=== PATIENT | female | born 1935 | race Caucasian/White ===

== ENCOUNTER → 2017-01-21 | Outpatient (REF) | payer MEDICARE | LOC: M LAB REF 16:07 | PROVIDERS: ATTEND Nurse Practitioner Adult Health | DX: R20.9 Unspecified disturbances of skin sensation (principal) ==

== ENCOUNTER → 2017-10-17 | Outpatient (REF) | payer MEDICARE ==
[2017-10-19 08:06] LABS: LDL DIRECT 138 mg/dL (0-99)
== END ==
LOC: M LAB REF 16:27
DX: E78.1 Pure hyperglyceridemia (principal)
CPT/HCPCS: 83721

== ENCOUNTER → 2018-02-24 | Outpatient (REF) | payer MEDICARE ==
[2018-02-24 12:48] LABS: BASO % 0.5 % (0.0-1.0); EOS # 0.2 10^3/uL (0.0-0.50); EOS % 3.7 % (0.0-3.0); HEMATOCRIT 33.2 % (36.0-47.0); HEMOGLOBIN 10.9 g/dl (12.0-15.5); IMMATURE GRANULOCYTE % 0.5 % (0-3.0); LYMPH # 1.6 10^3/uL (1.5-4.5); LYMPH % 27.3 % (24.0-44.0); MEAN CORPUSCULAR HEMOGLOBIN 29.4 pg (27.0-33.0); MEAN CORPUSCULAR HGB CONC 32.8 g/dl (32.0-36.5); MEAN CORPUSCULAR VOLUME 89.5 fl (80.0-96.0); MONO # 0.5 10^3/uL (0.0-0.8); MONO % 7.8 % (0.0-5.0); NEUTROPHILS # 3.5 10^3/uL (1.8-7.7); NEUTROPHILS % 60.2 % (36.0-66.0); PLATELET COUNT, AUTOMATED 198 10^3/uL (150-450); RED BLOOD COUNT 3.71 10^6/uL (4.00-5.40); RED CELL DISTRIBUTION WIDTH 13.9 % (11.5-14.5); WHITE BLOOD COUNT 5.8 10^3/uL (4.0-10.0)
[2018-02-24 13:06] LABS: CARCINOEMBRYONIC ANTIGEN 1.1 NG/ML (<2.5)
[2018-02-24 13:45] LABS: CA15-3 ANTIGEN 8.6 U/ML (<32.4)
[2018-02-24 13:46] LABS: ALBUMIN 3.8 GM/DL (3.2-5.2); ALBUMIN/GLOBULIN RATIO 1.15 (1.00-1.93); ALKALINE PHOSPHATASE 71 U/L (45-117); ALT/SGPT 16 U/L (12-78); ANION GAP 7 MEQ/L (8-16); AST/SGOT 17 U/L (7-37); BILIRUBIN,TOTAL 0.5 MG/DL (0.2-1.0); BLOOD UREA NITROGEN 14 MG/DL (7-18); CALCIUM LEVEL 8.6 MG/DL (8.8-10.2); CARBON DIOXIDE LEVEL 26 MEQ/L (21-32); CHLORIDE LEVEL 103 MEQ/L (98-107); CREATININE FOR GFR 1.29 MG/DL (0.55-1.30); GLOMERULAR FILTRATION RATE 42.2 (>32); GLUCOSE, FASTING 97 MG/DL (70-100); POTASSIUM SERUM 4.5 MEQ/L (3.5-5.1); SODIUM LEVEL 136 MEQ/L (136-145); TOTAL PROTEIN 7.1 GM/DL (6.4-8.2)
== END ==
LOC: M LABDRAW1 12:32
DX: C50.919 Malignant neoplasm of unspecified site of unspecified female breast (principal); G89.3 Neoplasm related pain (acute) (chronic)
CPT/HCPCS: 82378

== ENCOUNTER → 2018-12-30 | Outpatient (REF) | payer MEDICARE | LOC: M LAB REF 12:15 | PROVIDERS: ATTEND Nurse Practitioner Adult Health | DX: E87.1 Hypo-osmolality and hyponatremia (principal) ==

== ENCOUNTER → 2019-01-05 | Outpatient (REF) | payer MEDICARE ==
[2019-01-05 12:31] LABS: HEMATOCRIT 34.9 % (36.0-47.0); HEMOGLOBIN 11.6 g/dl (12.0-15.5); MEAN CORPUSCULAR HEMOGLOBIN 30.3 pg (27.0-33.0); MEAN CORPUSCULAR HGB CONC 33.2 g/dl (32.0-36.5); MEAN CORPUSCULAR VOLUME 91.1 fl (80.0-96.0); PLATELET COUNT, AUTOMATED 259 10^3/uL (150-450); RED BLOOD COUNT 3.83 10^6/uL (4.00-5.40); WHITE BLOOD COUNT 8.3 10^3/uL (4.0-10.0)
[2019-01-05 12:50] LABS: CALCIUM LEVEL 8.8 MG/DL (8.8-10.2); CREATININE FOR GFR 1.28 MG/DL (0.55-1.30); GLOMERULAR FILTRATION RATE 42.5 (>32); POTASSIUM SERUM 4.4 MEQ/L (3.5-5.1); THYROID STIMULATING HORMONE 2.11 uIU/ML (0.358-3.740)
== END ==
LOC: M LABDRAW1 11:40
PROVIDERS: ATTEND Internal Medicine Cardiovascular Disease
DX: I48.0 Paroxysmal atrial fibrillation (principal); I10 Essential (primary) hypertension

== ENCOUNTER → 2019-07-09 | Outpatient (REF) | payer OTHER, MEDICARE ==
[2019-07-09 18:04] LABS: FOLATE 23.7 NG/ML
== END ==
LOC: M LAB REF 16:51
PROVIDERS: ATTEND Internal Medicine
DX: R26.89 Other abnormalities of gait and mobility (principal)

== ENCOUNTER → 2019-08-19 | Outpatient (REF) | payer MEDICARE | LOC: M LAB REF 12:14 | PROVIDERS: ATTEND Nurse Practitioner Adult Health | DX: I12.9 Hypertensive chronic kidney disease with stage 1 through stage 4 chronic kidney disease, or unspecified chronic kidney disease (principal); R30.0 Dysuria ==

== ENCOUNTER → 2019-10-14 | Outpatient (REF) | payer MEDICARE ==
[2019-10-14 17:52] LABS: FOLATE 21.1 NG/ML; VITAMIN B12 LEVEL > 2000 PG/ML
== END ==
LOC: M LAB REF 16:34
PROVIDERS: ATTEND Registered Nurse
DX: R41.81 Age-related cognitive decline (principal); R42 Dizziness and giddiness

== ENCOUNTER 2019-11-22 09:26 | Emergency (ER) | payer MEDICARE ==
[~2019-11-22] VITALS: Ht 162.6 cm; Wt 85.2 kg
[2019-11-22] MEDS ORDERED: MIRA0.5T (09:40)
[2019-11-22] MEDS ORDERED: LETR2.5T2 (09:40)
[2019-11-22] MEDS ORDERED: LEVO125T4 (09:40)
[2019-11-22] MEDS ORDERED: ALPR0.25 (09:40)
[2019-11-22] MEDS ORDERED: PROP40TA62 (09:40)
[2019-11-22] MEDS ORDERED: IRBE150T7 (09:40)
[2019-11-22] MEDS ORDERED: OMEP-221 (09:40)
[2019-11-22] MEDS ORDERED: XARE15TA (09:40)
[2019-11-22] MEDS ORDERED: ATOR1TAB19 (09:40)
[2019-11-22] MEDS ORDERED: BUPR300T92 (09:40)
[2019-11-22] MEDS ORDERED: CYCLOBENZAPRINE 5MG TABLET PO ONE (10:30)
[2019-11-22] MEDS ORDERED: NORCO, ANEXSIA 5/325MG TABLET (HYDROcodone/ACETAMINOPHEN) PO ONE (10:30)
--- NOTE | 2019-11-22 11:10 | REP ---
Sacrum and coccyx three views: There are no comparisons. There is questionably a nondisplaced fracture of the anterior cortex at the mid sacrum. This should be correlated with clinical point tenderness. Follow-up MRI or CT might be considered for confirmation if felt clinically indicated. The sacral ala and foramen are unremarkable. The sacroiliac articulations are unremarkable. There are pelvic surgical clips and pelvic calcifications, likely phleboliths. Impression: Probable nondisplaced sacral fracture. Electronically Signed by Johnathan Garcia MD 11/22/2019 11:01 A
--- NOTE | 2019-11-22 11:11 | REP ---
Lumbar spine five views: Comparison is 04/08/2011. The vertebral body heights are normal. There are no compression deformities. There is degenerative disc disease at every lumbar level that has progressed from the prior study. There is grade 1 anterolisthesis of L4-L5 as an interval change, likely degenerative. There is no spondylolysis or spondylolisthesis. There is facet osteoarthritis in the lower lumbar levels. The sacroiliac articulations are unremarkable. Impression: No vertebral body compression deformity. Degenerative grade 1 anterolisthesis of L4. Progressive degenerative disc disease throughout the lumbar spine. Facet osteoarthritis as described. Electronically Signed by Johnathan Garcia MD 11/22/2019 11:03 A
[2019-11-22] MEDS ORDERED: NORC1TAB7 PO (11:53)
[2019-11-22] MEDS ORDERED: CYCL5TAB PO (11:53)
[2019-11-22 12:12] VITALS: BP 144/74
== END 2019-11-22 12:12 | disposition home or self-care (01) ==
LOC: M ED 09:26
DX: S32.10XA Unspecified fracture of sacrum, initial encounter for closed fracture (principal); W19.XXXA Unspecified fall, initial encounter; Y92.9 Unspecified place or not applicable; Y93.89 Activity, other specified; Y99.9 Unspecified external cause status; M43.16 Spondylolisthesis, lumbar region; M51.36 Other intervertebral disc degeneration, lumbar region; M46.96 Unspecified inflammatory spondylopathy, lumbar region; I48.91 Unspecified atrial fibrillation; I10 Essential (primary) hypertension; E78.5 Hyperlipidemia, unspecified; K21.9 Gastro-esophageal reflux disease without esophagitis; E03.9 Hypothyroidism, unspecified; F41.9 Anxiety disorder, unspecified; F32.9 Major depressive disorder, single episode, unspecified; Z87.891 Personal history of nicotine dependence; Z79.02 Long term (current) use of antithrombotics/antiplatelets; Z79.899 Other long term (current) drug therapy; Z88.0 Allergy status to penicillin; Z88.8 Allergy status to other drugs, medicaments and biological substances

== ENCOUNTER 2019-11-26 16:47 | Inpatient (IN) | payer MEDICARE ==
[~2019-11-26] VITALS: Ht 162.6 cm; Wt 83.6 kg
[~2019-11-26 16:47] MED LIST: ALPR0.25 PO; ATOR1TAB19 PO; BUPR300T92 PO; CYCL5TAB PO; IRBE150T7 PO; LETR2.5T2 PO; LEVO125T4 PO; MIRA0.5T PO; NORC1TAB7 PO; OMEP-221 PO; PROP40TA62 PO; XARE15TA PO
[2019-11-26] MEDS ORDERED: ESCI10TA2 PO (17:28)
[2019-11-26 17:57] LABS: BASO % 0.3 % (0.0-1.0); EOS # 0.2 10^3/uL (0.0-0.5); HEMOGLOBIN 11.1 g/dl (12.0-15.5); LYMPH # 1.5 10^3/uL (1.5-5.0); LYMPH % 15.2 % (24.0-44.0); MEAN CORPUSCULAR HEMOGLOBIN 30.2 pg (27.0-33.0); MEAN CORPUSCULAR HGB CONC 32.6 g/dl (32.0-36.5); MEAN CORPUSCULAR VOLUME 92.4 fl (80.0-96.0); MONO # 0.8 10^3/uL (0.0-0.8); MONO % 8.5 % (0.0-5.0); NEUTROPHILS # 7.3 10^3/uL (1.5-8.5); NEUTROPHILS % 73.4 % (36.0-66.0); PLATELET COUNT, AUTOMATED 186 10^3/uL (150-450); RED BLOOD COUNT 3.68 10^6/uL (4.00-5.40); WHITE BLOOD COUNT 9.9 10^3/uL (4.0-10.0)
[2019-11-26] MEDS ORDERED: NS 500 ML IV ONE (18:30)
[2019-11-26 18:45] LABS: ALBUMIN 3.5 GM/DL (3.2-5.2); ALT/SGPT 22 U/L (12-78); BILIRUBIN,TOTAL 0.7 MG/DL (0.2-1.0); BLOOD UREA NITROGEN 19 MG/DL (7-18); CALCIUM LEVEL 8.8 MG/DL (8.8-10.2); CARBON DIOXIDE LEVEL 28 MEQ/L (21-32); CHLORIDE LEVEL 98 MEQ/L (98-107); CK-MB VALUE MASS < 1.0 NG/ML (<3.6); CPK CREATINE PHOSPHOKINASE 34 U/L (26-192); CREATININE FOR GFR 1.28 MG/DL (0.55-1.30); GLOMERULAR FILTRATION RATE 42.4 (>32); GLUCOSE, FASTING 88 MG/DL (70-100); MB/CK RELATIVE INDEX 2.94 (< OR =4); POTASSIUM SERUM 4.4 MEQ/L (3.5-5.1); SODIUM LEVEL 133 MEQ/L (136-145); TOTAL PROTEIN 6.6 GM/DL (6.4-8.2); TROPONIN I < 0.02 NG/ML (< 0.10)
--- NOTE | 2019-11-26 18:55 | REP ---
LUMBOSACRAL SPINE SERIES: Five views of the lumbosacral spine are performed. There is no compression fracture. There is mild anterolisthesis of L4 on L5 which appears to be due to posterior facet arthropathy, with no evidence of spondylolysis. There is mild diffuse spurring. There is mild disc space narrowing and subchondral sclerosis at all levels. There is sclerosis and spurring at the posterior facet joints especially L5-S1. Posterior elements are intact. There is slight curvature toward the left. Metallic clips are seen in the right upper quadrant. There are also a few metallic clips in the pelvis. IMPRESSION: Degenerative changes without fracture or dislocation. Electronically Signed by Johnathan Castaneda MD 11/26/2019 07:17 P
--- NOTE | 2019-11-26 19:09 | REPVR ---
PROCEDURE INFORMATION: Exam: CT Head Without Contrast Exam date and time: 11/26/2019 6:40 PM Age: 84 years old Clinical indication: Injury or trauma; Fall; Initial encounter; Blunt trauma (contusions or hematomas); Consciousness not specified; Additional info: Recurrent fall TECHNIQUE: Imaging protocol: Computed tomography of the head without contrast. Radiation optimization: All CT scans at this facility use at least one of these dose optimization techniques: automated exposure control; mA and/or kV adjustment per patient size (includes targeted exams where dose is matched to clinical indication); or iterative reconstruction. COMPARISON: No relevant prior studies available. FINDINGS: Brain: There is moderate age related global parenchymal volume loss. White matter changes are demonstrated in the subcortical, centrum semiovale and periventricular white matter consistent with age related small vessel white matter angiopathic gliosis. Ventricles: The degree of ventricular dilatation is normal for age and/or degree of atrophy present. Bones/joints: There is hyperostosis frontalis interna. Sinuses: Visualized sinuses are unremarkable. No fluid levels. Mastoid air cells: Visualized mastoid air cells are well aerated. Soft tissues: Unremarkable. IMPRESSION: 1. There is moderate age related global parenchymal volume loss. White matter changes are demonstrated in the subcortical, centrum semiovale and periventricular white matter consistent with age related small vessel white matter angiopathic gliosis. 2. The degree of ventricular dilatation is normal for age and/or degree of atrophy present. Electronically signed by: Alf Zamora On 11/26/2019 19:08:50 PM
--- NOTE | 2019-11-26 19:14 | HPEPDOC ---
[facility] Medical History & Physical Date of Admission Nov 26, 2019 Date of Service: Nov 26, 2019 Primary Care Physician: Jr Valentine Collins Attending Physician: OLIVERIO HEREDIA MD History and Physical TIME OF SERVICE: 7:35 PM CHIEF COMPLAINT: Back pain HISTORY OF PRESENT ILLNESS: This is an 84-year-old female presented primarily with complaints of 2 out of 10, sharp, sacral pain that's worse with movement , which developed as a result of having a fall while trying to move furniture last ; she denies having chest pain, dizziness, headache, blurry vision, shortness of breath, weak legs, or palpitations prior to the fall. She presented to [facility] on Friday for eval uation and was told that she might have a fracture of her sacrum and followed up with an orthopedic surgeon who recommended that she is a walker and return in a few days for repeat x-rays The patient also has a history of falls, which she attributed to taking too much of one of her medications; she is not sure which medication it was. Since her daughter began managing her medications she stopped having falls until 2 weeks ago when she had a near fall while getting out of the shower; the patient's daughter attributes this episode to her mother having weak legs. The patient's daughter is also concerned because her mother seems more forgetful over the last 2 weeks. REVIEW OF SYSTEMS: 12 point review of systems negative except as listed in HPI PAST MEDICAL/ SURGICAL HISTORY: Atrial fibrillation on Xarelto CKD 3 Chronic hypertension Dyslipidemia Anxiety/depression GERD Hypothyroidism Right breast cancer status post right lumpectomy on adjuvant anastrozole. Status post bilateral knee replacement. Status post laparoscopic cholecystectomy. Status post appendectomy Status post tonsillectomy and adenoidectomy SOCIAL HISTORY: She is a former smoker. She doesn't drink alcohol. She doesn't use recreational drugs FAMILY HISTORY: n/a ALLERGIES: Please see below. HOME MEDICATIONS: Please see below. PHYSICAL EXAMINATION: Vital Signs Date Time Temp Pulse Resp B/P (MAP) Pulse Ox O2 Delivery O2 Flow Rate FiO2 11/26/19 16:54 109 16 175/98 Room Air 11/26/19 17:13 97.9 GEN: well-nourished / well developed INTEGUMENT: not flushed/ not jaundice HEENT: NCAT / lips acyanotic /mucus membranes moist and pink CVS: RRR/NMRG/ right lower extremity more swollen compared to left LUNGS: lungs are clear to auscultation bilaterally on room air ABDOMEN: Contour ( obese) / there are no masses or lesions / soft & not tender with palpation NEURO: CN 2-12 are grossly intact / speech is not dysarthric PSYCH: alert and oriented/ able to understand and follow all commands Laboratory Tests IMAGING: X-ray lumbar spine " IMPRESSION: Degenerative changes without fracture or dislocation." CT head "IMPRESSION: 1. There is moderate age related global parenchymal volume loss. White matter changes are demonstrated in the subcortical, centrum semiovale and periventricular white matter consistent with age related small vessel white matter angiopathic gliosis. 2. The degree of ventricular dilatation is normal for age and/or degree of atrophy present. " CT lumbar spine " IMPRESSION: 1. Fracture transverse process on the left at L1. 2. Fractured proximal rib at T12 at the vertebral articulation on the left. 3. Degenerative spondylosis with a mild central spinal stenosis at L2-L3, moderate to severe central spinal stenosis at L3-L4 and severe central spinal stenosis at L4-L5. " MICROBIOLOGY: Please see below. ASSESSMENT: Ms. Martínez is an 84-year-old female the past, history of A. fib, CKD, HTN, lipidemia, anxiety, depression, GERD, hypothyroidism, and multiple surgeries, who is admitted primarily for evaluation of near syncope. PLAN: 1. Near syncope/frequent falls Possibly due to orthostasis (in the ER with a change from 196/106, supine to 137 /86 standing) vs lower extremity weakness , since her BP was very elevated on arrival we can't r/o CVA Per Dr. Carrasco EKG showed rate controlled A. fib with RBBB Her troponin was within normal limits Plan: Admit to medical floor/telemetry / f/u serial orthostats and serial troponins /fall precautions/ will not give IV fluid because her blood pressure is high / PT eval/follow up MRI brain and Carotid US / hold Inderal 2. Uncontrolled hypertension - Plan: c/w Irbesartan 3. Back pain secondary to L1 fracture - Plan: Lidocaine patch/continue with [place], Flexeril /if the pain is still uncontrolled in the morning, the daytime team may consider consulting Ortho this admission 4. Left Rib fracture ad proximal part of T12 - Plan: Pain meds/incentive spirometry 5. RLE Swelling - Plan: elevate leg / will not order US to r/o DVT bc she is already on xarelto 6. Atrial fibrillation - Plan: c/w Xarelto 7. Hypothyroidism - Plan: c/w Levothyroxine 8. CKD 3 - Plan: f/u BMP 9. Dyslipidemia - Plan: c/w lovastatin 10. Anxiety/depression - Plan: c/w alprazolam, bupropion, citalopram 11. Hx of Right Breast CA - Plan: c/w letrozole 12. GERD - Plan: c/w home meds DVT PROPHYLAXIS: n/a bc she is on Xarelto DISPOSITION: home vs in pt rehab after more than 2 days Home Medications Scheduled Atorvastatin Calcium (Atorvastatin Calcium) 10 Mg Tablet, 10 MG PO QHS Bupropion HCl (Bupropion Xl) 300 Mg Tab.er.24h, 300 MG PO DAILY Escitalopram Oxalate (Escitalopram Oxalate) 10 Mg Tablet, 10 MG PO DAILY Irbesartan (Irbesartan) 150 Mg Tablet, 150 MG PO QHS Letrozole (Letrozole) 2.5 Mg Tablet, 2.5 MG PO QHS Levothyroxine Sodium (Levothyroxine Sodium) 125 Mcg Tablet, 125 MCG PO DAILY Omeprazole (Omeprazole) 40 Mg Capsule.dr, 40 MG PO QHS Pramipexole Di-HCl (Mirapex) 0.5 Mg Tablet, 0.5 MG PO QHS Propranolol HCl (Propranolol HCl) 40 Mg Tablet, 40 MG PO BID Rivaroxaban (Xarelto) 15 Mg Tablet, 15 MG PO QHS Scheduled PRN Alprazolam (Alprazolam) 0.25 Mg Tablet, 0.25 MG PO QID PRN for ANXIETY/AGITATION Cyclobenzaprine HCl (Cyclobenzaprine HCl) 5 Mg Tablet, 5 MG PO Q8H PRN for MUSCLE SPASMS Hydrocodone/Acetaminophen (Hydrocodone-Acetamin 5-325 mg) 1 Each Tablet, 1 TAB PO TID PRN for PAIN MDD 4 Allergies Coded Allergies: amoxicillin (Verified Allergy, Unknown, 11/22/19) meperidine (Verified Allergy, Unknown, 11/22/19) A-FIB/CHADSVASC A-FIB History Current/History of A-Fib/PAF?: No Current PO Anticoag Therapy: No OLIVERIO HEREDIA MD Nov 26, 2019 19:14
--- NOTE | 2019-11-26 19:14 | REPVR ---
PROCEDURE INFORMATION: Exam: CT Lumbar Spine Without Contrast Exam date and time: 11/26/2019 6:40 PM Age: 84 years old Clinical indication: Injury or trauma; Fall; Initial encounter; Blunt trauma (contusions or hematomas) TECHNIQUE: Imaging protocol: Computed tomography images of the lumbar spine without contrast. Radiation optimization: All CT scans at this facility use at least one of these dose optimization techniques: automated exposure control; mA and/or kV adjustment per patient size (includes targeted exams where dose is matched to clinical indication); or iterative reconstruction. COMPARISON: CR Spine. Lumbosacral, complete 11/26/2019 5:22 PM FINDINGS: Vertebrae: Mild anterolisthesis of L4 on L5. Fracture transverse process on the left at L1. Discs/Spinal canal/Neural foramina: Mild degenerative central spinal stenosis L2-L3. Moderate to severe degenerative central spinal stenosis L3-L4. Severe degenerative central spinal stenosis L4-L5. Bulging annulus L5-S1 without neural compromise. Other bones/joints: Osteoporosis. Fractured proximal rib at T12 on the left. Vasculature: The aorta demonstrates mild atherosclerotic calcification. Soft tissues: Unremarkable. IMPRESSION: 1. Fracture transverse process on the left at L1. 2. Fractured proximal rib at T12 at the vertebral articulation on the left. 3. Degenerative spondylosis with a mild central spinal stenosis at L2-L3, moderate to severe central spinal stenosis at L3-L4 and severe central spinal stenosis at L4-L5. Electronically signed by: Alf Zamora On 11/26/2019 19:14:38 PM
[2019-11-26] MEDS ORDERED: MAALOX 30 ML SUSP *UDC PO PRN (19:30)
[2019-11-26] MEDS ORDERED: HYDR-3713 PO (19:56)
[2019-11-26] MEDS ORDERED: CYCL5TAB PO (19:56)
[2019-11-26] MEDS ORDERED: LIDOCAINE 5% (LIDODERM) PATCH TD ONE (20:00)
[2019-11-26] MEDS ORDERED: ALPRAZolam 0.25 MG TAB PO PRN (20:45)
--- NOTE | 2019-11-26 21:53 | REPVR ---
PROCEDURE INFORMATION: Exam: MR Head Without Contrast Exam date and time: 11/26/2019 9:06 PM Age: 84 years old Clinical indication: Walking, difficulty; Patient HX: Vertigo with falls; Additional info: Syncope R/O CVA TECHNIQUE: Imaging protocol: MR of the head without contrast. COMPARISON: CT Head without contrast 11/26/2019 6:36 PM FINDINGS: Brain: There is no acute cortical infarction, intracranial hemorrhage or mass. Subtle increased intensity is seen to the right of midline within the millie on the FLAIR sequence which may be due to small vessel occlusive disease among other etiologies. Mild periventricular hyperintensity is also apparent. There are no prior microhemorrhages. Ventricles: The ventricles appear enlarged, but not out of proportion to the degree of parenchymal volume loss. Bones/joints: Unremarkable. Soft tissues: Unremarkable. Sinuses: Normal as visualized. No acute sinusitis. Mastoid air cells: Normal as visualized. No mastoid effusion. Orbits: Unremarkable. IMPRESSION: No acute cerebral infarction or intracranial hemorrhage. There is dilatation of the ventricular system which may be slightly out of proportion to the degree of brain volume loss therefore normal-pressure hydrocephalus is within the differential. No significant transependymal edema is apparent. Electronically signed by: Jennifer Sandy On 11/26/2019 21:53:12 PM
[2019-11-26 22:00] VITALS: BP_SYST 157; BP_SYST 174; BP_SYST 186; BP_DIAS 82; BP_DIAS 91; BP_DIAS 97
--- NOTE | 2019-11-26 22:20 | REPVR ---
PROCEDURE INFORMATION: Exam: US Duplex Bilateral Extracranial Arteries Exam date and time: 11/26/2019 9:35 PM Age: 84 years old Clinical indication: Syncope and collapse TECHNIQUE: Imaging protocol: Real-time Duplex ultrasound scan of the bilateral carotid and vertebral arteries combining crockett scale, color Doppler and spectral waveform analysis. Bilateral exam. COMPARISON: CT Head without contrast 11/26/2019 6:36 PM FINDINGS: Right common carotid artery: Unremarkable. No occlusion or stenosis. Waveforms are normal. Right internal carotid artery: Mild atherosclerotic changes. No significant velocity increase. No occlusion or stenosis. Waveforms are normal. Right ICA/CCA ratio: Within normal limits. 0.55 Right external carotid artery: No stenosis in the origin. Right vertebral artery: Not visualized. Left common carotid artery: Unremarkable. No occlusion or stenosis. Waveforms are normal. Left internal carotid artery: [id number] atherosclerotic changes. No significant velocity increase. No occlusion or stenosis. Waveforms are normal. Left ICA/CCA ratio: Within normal limits. 1.27 Left external carotid artery: No stenosis in the origin. Left vertebral artery: Unremarkable. Antegrade flow. IMPRESSION: 1. Mild atherosclerotic changes in the proximal right internal carotid artery and [id number] atherosclerotic changes in the proximal left internal artery resulting in less than 50% stenosis bilaterally consistent with a mild stenosis using SRU 2. Criteria. 3. Normal flow in the left vertebral artery. Right vertebral artery not visualized. REFERENCES: Carotid Stenosis Reference using SRU criteria: Mild: less than 50% stenosis. ICA PSV is less than 125 cm/second and plaque or intimal thickening is visible. Moderate: 50-69% stenosis. ICA PSV is 125 to 230 cm/second and plaque is visible. Severe: 70-94% stenosis. ICA PSV is more than 230 cm/second and visible plaque and lumen narrowing are seen. Near occlusion: 95-99% stenosis. ICA PSV is variable and significant plaque and luminal narrowing are seen. Occluded: 100% stenosis. No flow identified. Electronically signed by: Alf Zamora On 11/26/2019 22:19:37 PM
[2019-11-26] MEDS: ATORVASTATIN 10 MG TAB PO SCH (23:13)
[2019-11-26] MEDS: LETROZOLE 2.5 MG TAB PO SCH (23:14)
[2019-11-26] MEDS: RIVAROXABAN 15 MG TAB (XARELTO) PO SCH (23:14)
[2019-11-26] MEDS: IRBESARTAN 150 MG TAB PO SCH (23:14)
[2019-11-26] MEDS: PRAMIPEXOLE 0.25 MG TAB PO SCH (23:14)
[2019-11-26] MEDS: NORCO, ANEXSIA 5/325MG TABLET (HYDROcodone/ACETAMINOPHEN) PO PRN (23:15)
[2019-11-27] VITALS (7 sets, daily range): BP systolic 97–176; BP diastolic 58–99
[2019-11-27] MEDS: ACETAMINOPHEN TAB 650MG DOSE (2X325MG) PO PRN ×2 (05:04→20:37)
[2019-11-27 05:28] LABS: HEMATOCRIT 34.7 % (36.0-47.0); HEMOGLOBIN 11.4 g/dl (12.0-15.5); MEAN CORPUSCULAR HEMOGLOBIN 30.4 pg (27.0-33.0); MEAN CORPUSCULAR HGB CONC 32.9 g/dl (32.0-36.5); MEAN CORPUSCULAR VOLUME 92.5 fl (80.0-96.0); PLATELET COUNT, AUTOMATED 182 10^3/uL (150-450); RED BLOOD COUNT 3.75 10^6/uL (4.00-5.40); WHITE BLOOD COUNT 9.9 10^3/uL (4.0-10.0)
[2019-11-27 06:06] LABS: BLOOD UREA NITROGEN 17 MG/DL (7-18); CALCIUM LEVEL 9.4 MG/DL (8.8-10.2); CARBON DIOXIDE LEVEL 27 MEQ/L (21-32); CHLORIDE LEVEL 99 MEQ/L (98-107); CREATININE FOR GFR 1.25 MG/DL (0.55-1.30); GLOMERULAR FILTRATION RATE 43.6 (>32); GLUCOSE, FASTING 109 MG/DL (70-100); POTASSIUM SERUM 4.1 MEQ/L (3.5-5.1); SODIUM LEVEL 132 MEQ/L (136-145); TROPONIN I < 0.02 NG/ML (< 0.10)
[2019-11-27] MEDS ORDERED: **NOTE PATIENT COMMENT** MISC XX ONE (08:00)
[2019-11-27] MEDS: NORCO, ANEXSIA 5/325MG TABLET (HYDROcodone/ACETAMINOPHEN) PO PRN ×2 (10:11→18:37)
[2019-11-27] MEDS: buPROPion **XL** TABLET 150MG (WELLBUTRIN XL) PO SCH (10:13)
[2019-11-27] MEDS: ESCITALOPRAM OXALATE 10 MG TAB (LEXAPRO) PO SCH (10:13)
[2019-11-27] MEDS: LEVOTHYROXINE 125MCG TABLET (0.125MG) PO SCH (10:13)
--- NOTE | 2019-11-27 10:58 | IPN ---
DATE: 11/27/2019 PRIMARY CARE PROVIDER: Dr. Reji Valentine ATTENDING PHYSICIAN: Hospitalist group. Arabella was seen on , admitted to the hospitalist group after having a week of left low back pain. She was seen by the orthopedic group as an outpatient, had plain films of the sacrum done that were unremarkable. Plan was to followup in their office next week. She came to the emergency room with intractable back pain, sacral pain, and CT scan showed a fracture of the transverse process of L1 on the left as well as a fractured proximal rib at T12 on the left. She apparently had fallen prior to developing the back pain. Incidental finding was moderate to severe central spinal stenosis at L3-L4 and severe spinal stenosis at L4-L5. Her daughter is visiting from [place], [place], indicates that her mother has been having problems with dizziness/poor balance, memory loss and urinary incontinence. She has not seen a neurologist for this. She had an MRI of the brain last night that showed ventriculomegaly out of proportion to atrophy, raising possibility of normal pressure hydrocephalus. She has a history of chronic hyponatremia. Sodium was 133 back on 01/15, also had low sodium back in 2014. Her past history shows atrial fibrillation for which she is anticoagulated with Xarelto, stage III chronic kidney disease, chronic anxiety/depression, on a number of neuropsychiatric medications that could be contributing to the mild hyponatremia, hypothyroidism, history of right breast cancer, and hyperlipidemia. Per her daughter, she has been having memory loss, falls, and some urinary incontinence. PHYSICAL EXAMINATION: Blood pressure 133/89. She did have an orthostatic blood pressure drop earlier in the day. She is alert, conversant, in no distress. Speech is fluent and generally contains adequate content. No facial droop or weakness. Lungs: Clear. Heart: Regular rate and rhythm. Abdomen: Soft, nontender. No masses. No peripheral edema. Low back is tender to palpate, left low back. Moves arms and legs with equal strength. LABORATORY: Sodium was 132, potassium 4.1, BUN 17, creatinine 1.2, GFR 43. TSH was minimally elevated at 5.4. It should be noted that she had a normal B12, folate done 10/14/2019. White count 9.9, hemoglobin 11.4, platelets 182. IMPRESSION: 1. L1 transverse process fracture with fracture of 12th posterior rib. Plan: She already has analgesic ordered, Lidoderm patch. She should get out of bed. Physical therapy has been ordered. Patient and daughter understand this will be a slow healing process, and there is no role for surgical intervention. 2. Question normal pressure hydrocephalus. Neurology has been consulted. Case discussed with Dr. Sanchez. 3. Severe central canal spinal stenosis. She already has an orthopedic appointment as an outpatient, and this can be dealt with as an outpatient. 4. Hyponatremia. Looks chronic. She is on a number of neuropsychiatric medications that could be contributing to this. It is generally well tolerated in the elderly and does not need to be corrected. 5. Atrial fibrillation. Rate is controlled. She is adequate anticoagulated with Xarelto. There is no sign of any bleeding on the MRI of the brain. 6. Hypertension. Blood pressure is well controlled on current regimen. 7. Hyperlipidemia. Continue atorvastatin 10 mg daily. 8. Hypothyroidism. Thyroid-stimulating hormone (TSH) is almost normal. I am not going to adjust her thyroid medication, deferring this to her outpatient provider who I am sure keeps a close eye on her TSH. She may well have missed a dose or so with her recent memory problems and illness, and I do not think it warrants change in her thyroid dosing.
[2019-11-27] MEDS: CYCLOBENZAPRINE 5MG TABLET PO PRN (16:44)
[2019-11-27] MEDS: RIVAROXABAN 15 MG TAB (XARELTO) PO SCH (20:36)
[2019-11-27] MEDS: ATORVASTATIN 10 MG TAB PO SCH (20:36)
[2019-11-27] MEDS: LETROZOLE 2.5 MG TAB PO SCH (20:36)
[2019-11-27] MEDS: PRAMIPEXOLE 0.25 MG TAB PO SCH (20:39)
[2019-11-27] MEDS: IRBESARTAN 150 MG TAB PO SCH (20:41)
[2019-11-27 21:55] LABS: TOTAL PROTEIN 7.2 GM/DL (6.4-8.2)
[2019-11-28] VITALS (7 sets, daily range): BP systolic 100–159; BP diastolic 58–92
[2019-11-28 06:00] LABS: HEMATOCRIT 34.8 % (36.0-47.0); HEMOGLOBIN 11.4 g/dl (12.0-15.5); MEAN CORPUSCULAR HEMOGLOBIN 30.1 pg (27.0-33.0); MEAN CORPUSCULAR HGB CONC 32.8 g/dl (32.0-36.5); MEAN CORPUSCULAR VOLUME 91.8 fl (80.0-96.0); PLATELET COUNT, AUTOMATED 184 10^3/uL (150-450); RED BLOOD COUNT 3.79 10^6/uL (4.00-5.40); WHITE BLOOD COUNT 8.4 10^3/uL (4.0-10.0)
[2019-11-28 06:28] LABS: CALCIUM LEVEL 8.9 MG/DL (8.8-10.2); CREATININE FOR GFR 1.21 MG/DL (0.55-1.30); GLOMERULAR FILTRATION RATE 45.2 (>32)
[2019-11-28] MEDS: NORCO, ANEXSIA 5/325MG TABLET (HYDROcodone/ACETAMINOPHEN) PO PRN ×2 (06:28→17:13)
[2019-11-28] MEDS: LEVOTHYROXINE 125MCG TABLET (0.125MG) PO SCH (07:56)
[2019-11-28] MEDS: buPROPion **XL** TABLET 150MG (WELLBUTRIN XL) PO SCH (07:56)
[2019-11-28] MEDS: CYCLOBENZAPRINE 5MG TABLET PO PRN (07:57)
[2019-11-28] MEDS: ESCITALOPRAM OXALATE 10 MG TAB (LEXAPRO) PO SCH (07:57)
[2019-11-28] MEDS: ACETAMINOPHEN TAB 650MG DOSE (2X325MG) PO PRN ×2 (07:58→23:28)
[2019-11-28] MEDS: ANALGESIC BALM CRM 120 GM TOP SCH ×2 (09:00→22:01)
--- NOTE | 2019-11-28 13:51 | IPN ---
DATE: 11/28/2019 I met with Arabella, her two daughters and son-in-law. They are quite pleased with the neurologic workup, which is in progress. She is still having a lot of back pain, as expected, from her fractures. Has not gotten out of bed yet. PHYSICAL EXAMINATION: Afebrile. Vital signs stable. Oxygen saturation 97%. LUNGS: Clear. HEART: Regular rate and rhythm. ABDOMEN: Soft, nontender. Left low back is tender to palpate. LABORATORIES: Look unremarkable. Sodium is 132, which is stable. IMPRESSION: 1. Transverse process fracture with a prior fracture of twelfth posterior rib. Continue analgesics, Lidoderm patch. She needs to get out of bed. Plan will be short-term rehabilitation prior to her going home. 2. Memory loss. Unlikely to be a normal pressure hydrocephalous. Neurologic workup is in progress. 3. Hyponatremia. Chronic. Is related to her neuropsychiatric medications. She tolerates this well. Does not need to be corrected. 4. Atrial fibrillation. Rate is well-controlled and she takes Xarelto for anticoagulation. Anticipate that she will need short-term rehabilitation.
[2019-11-28] MEDS ORDERED: SENOKOT S TAB PO PRN (17:30)
[2019-11-28] MEDS ORDERED: MIRALAX *UNIT DOSE* 17GM PACKET PO PRN (17:30)
[2019-11-28] MEDS ORDERED: SENOKOT S TAB PO ONE (18:00)
[2019-11-28] MEDS ORDERED: MIRALAX *UNIT DOSE* 17GM PACKET PO ONE (18:00)
--- NOTE | 2019-11-28 20:20 | ECGEPIP ---
[facility] - ED Test Date: 2019-11-26 Pat Name: RAFAEL MICHAEL Department: Room: - Gender: Female Web [employer]eder: SB : [id number] Requested By: Ivonne Dailey Order Number: [id number] Reading MD: Mike Ga Measurements Intervals [place] Rate: 88 P: HI: 0 QRS: 101 QRSD: 133 T: -33 QT: 373 QTc: 454 Interpretive Statements ATRIAL FIBRILLATION MARKED RIGHT AXIS DEVIATION RIGHT BUNDLE BRANCH BLOCK RHYTHM CHANGE COMPARED TO 12/03/14 Electronically Signed on 11-28-2019 20:19:54 EST by Mike Ga
--- NOTE | 2019-11-28 20:45 | CR ---
DATE OF CONSULTATION: 11/28/2019 REFERRING PROVIDER: Dr. Irving Felipe. REASON FOR CONSULTATION: Suspected normal pressure hydrocephalus, unsteady gait. The patient is an 84-year-old female who presents to [facility] due to severe back pain. The patient was trying to move a chair in her home last when she had a fall. The patient hurt her back at that time. She did not tell her family at the time. The patient fortunately has been having severe back pain, was brought to the hospital. Initial head CT was reported as normal for age. However, the MRI of the brain did suggest the possibility of having normal pressure hydrocephalus with slightly enlarged ventricles out of proportion to the atrophy noted. The patient herself denies having any magnetic gait. The only time that she experienced difficulty with her balance, she states, is when her blood pressure medications accidentally were being taken at double dose instead of single dose. The patient had her medications adjusted and her balance did significantly improve. She does not normally walk with small steps it seems. 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 The patient also denies having any significant urinary incontinence. On occasion, she wears Depends for bowel incontinence. The patient has been experiencing difficulty with cognition over the past six months. Approximately six months ago, she did have an evaluation for dementia. She does not know what the results were. The patient states that over the last six months to a year and half, she has been experiencing some difficulty with short-term memory only. She is fully aware of this difficulty. The family members have also noticed it. The patient otherwise seems to be quite with it at the present time with good cognition. She is oriented to person, place and time. The patient also developed an acute signs of cognitive difficulty, confusion when she was placed on cyclobenzaprine and also when she was placed on a narcotic for pain management. This has improved with reducing dosages of these medications, as per the patient and her daughter. At the present time, the patient is noted to have fractured proximal rib at T12 on the left, fracture transverse process on the left at L1, which is contributing towards her acute pain. Likely has an outpatient, the patient can continue to be monitored for possibility of normal-pressure hydrocephalus, although the patient does not clinically meet the requirements for this condition. Repeat imaging in six months to a year can be obtained. The patient is not interested in pursuing any neurosurgical evaluation, high-volume spinal tap or lumbar drainage be placed at this time. Her back pain will need to be adequately treated and her fractures healed prior to assessment of her ambulating accurately. With the absence of urinary incontinence, difficulty with magnetic gait, recent gait and significant confusion, I would think that the patient less likely has normal pressure hydrocephalus at this time. She may have, for her age, mild cognitive impairment and unsteady gait due to factors of spinal stenosis and peripheral neuropathy. REVIEW OF SYSTEMS: A 14-point review of systems obtained and is negative except as per history of present illness (HPI). PAST MEDICAL HISTORY: 1. Atrial fibrillation on Xarelto. 2. Chronic kidney disease stage III. 3. Chronic hypertension. 4. Dyslipidemia. 5. Anxiety. 6. Depression. 7. Gastroesophageal reflux disease. 8. Hypothyroidism. 9. Right breast cancer status post lumpectomy on adjuvant anastrozole. 10. Status post bilateral knee replacement. 11. Status post laparoscopic cholecystectomy. 12. Status post hysterectomy. 13. Tonsillectomy. 14. Adenoidectomy. 15. Bout of episodic vertigo over a year ago, intermittent. SOCIAL HISTORY: The patient is a former smoker. She denies use of any alcohol or illicit drugs. FAMILY HISTORY: Noncontributory. HOME MEDICATIONS: - atorvastatin - bupropion - escitalopram - irbesartan - letrozole - levothyroxine - omeprazole - pramipexole - propranolol - rivaroxaban - alprazolam - cyclobenzaprine - hydrocodone/acetaminophen ALLERGIES: AMOXICILLIN, MEPERIDINE.. PHYSICAL EXAMINATION: Blood pressure is 122/78, pulse rate 98, respiratory rate is 17, pulse oximetry is 94% on room air . The patient is 83 kg. The patient is a oriented to person, place and time. Speech, language, comprehension, repetition are intact. Pupils are to 2.5 mm, round, reactive to light. Extraocular movements are intact in all directions without nystagmus. Some choppy pursuits are noted. Sensation , VII, VIII is intact to light touch. No facial asymmetry to activation. Palate elevates symmetrically. Tongue is midline. No weakness of sternocleidomastoids bilaterally. There is no pronator drift. Strength is 5/5 including bilateral biceps, triceps, handgrip the patient had significant difficulty demonstrating full strength in the lower extremities due to pain, but demonstrates 5/5 tibialis anterior strength, reasonable 5/5 quadriceps strength. Iliopsoas was hard for the patient to test due to back spasms and pain intermittently. Sensation is intact to light touch in all four extremities. Deep tendon reflexes are decreased in the lower extremities, 2s in the upper extremities. Coordination was without any signs of gross ataxia or dysmetria. ASSESSMENT: 1. CT evidence of mild ventriculomegaly and atrophy of the brain, possibly slightly out of proportion to brain atrophy, without clinical symptoms of magnetic gait, urinary incontinence. The patient does have some cognitive impairments, likely mild cognitive impairment due to age, worsened recently due to new pain medications, muscle answers. 2. Transverse process fracture of the L1 region and proximal rib fracture at T12 on the left, causing severe muscle spasm pain with movement. PLAN: Repeat imaging of brain in six months to a year. Followup MD outpatient neurology clinic. The patient is not interested neurosurgical evaluation by volume spinal tap at this time. Clinically, this would probably be not an optimal time to test for shuffling gait, freezing gait and magnetic gait as the patient has severe back pain which limits her ability to ambulate. History obtained from both the patient, the patient's daughter, Leesa.
[2019-11-28] MEDS: ATORVASTATIN 10 MG TAB PO SCH (22:01)
[2019-11-28] MEDS: RIVAROXABAN 15 MG TAB (XARELTO) PO SCH (22:02)
[2019-11-28] MEDS: LETROZOLE 2.5 MG TAB PO SCH (22:02)
[2019-11-28] MEDS: IRBESARTAN 150 MG TAB PO SCH (22:02)
[2019-11-28] MEDS: PRAMIPEXOLE 0.25 MG TAB PO SCH (22:02)
[2019-11-29 02:25] VITALS: BP 147/93
[2019-11-29 06:00] VITALS: BP 144/91
[2019-11-29 06:08] LABS: HEMOGLOBIN 10.9 g/dl (12.0-15.5); MEAN CORPUSCULAR HEMOGLOBIN 31.1 pg (27.0-33.0); MEAN CORPUSCULAR HGB CONC 34.1 g/dl (32.0-36.5); MEAN CORPUSCULAR VOLUME 91.2 fl (80.0-96.0); PLATELET COUNT, AUTOMATED 172 10^3/uL (150-450); RED BLOOD COUNT 3.51 10^6/uL (4.00-5.40)
[2019-11-29] MEDS: CYCLOBENZAPRINE 5MG TABLET PO PRN ×2 (06:16→15:51)
[2019-11-29] MEDS: ACETAMINOPHEN TAB 650MG DOSE (2X325MG) PO PRN ×2 (06:17→15:52)
[2019-11-29 06:34] LABS: CALCIUM LEVEL 8.8 MG/DL (8.8-10.2); CREATININE FOR GFR 1.18 MG/DL (0.55-1.30); GLOMERULAR FILTRATION RATE 46.6 (>32); POTASSIUM SERUM 3.5 MEQ/L (3.5-5.1)
[2019-11-29] MEDS: LEVOTHYROXINE 125MCG TABLET (0.125MG) PO SCH (09:05)
[2019-11-29] MEDS: ESCITALOPRAM OXALATE 10 MG TAB (LEXAPRO) PO SCH (09:05)
[2019-11-29] MEDS: buPROPion **XL** TABLET 150MG (WELLBUTRIN XL) PO SCH (09:05)
[2019-11-29] MEDS: ANALGESIC BALM CRM 120 GM TOP SCH ×2 (09:07→21:29)
[2019-11-29 09:45] LABS: VITAMIN B12 LEVEL > 2000 PG/ML (247-911)
--- NOTE | 2019-11-29 09:54 | IPN ---
DATE: 11/29/2019 Arabella was sleeping soundly when I saw her. Her pain control seems to be better. Neurology consultation is now available and they plan on outpatient followup. Patient is progressing in physical therapy. PHYSICAL EXAMINATION: 144/91. Pulse 100. Respiratory rate 16. Afebrile. General Appearance: Elderly. Resting comfortably. When I awoke her from sleep, she did complain of left low back pain. Lungs: Clear. Heart: Regular rhythm. Abdomen: Soft. Nontender. No peripheral edema. Left low tub tender to palpate. Normal strength in both legs. LABS: Electrolytes unremarkable. Sodium stable in low 130s. CBC is unchanged. IMPRESSION: 1. Transverse process fracture L1 with fracture of 12th posterior rib. Lidoderm patch. Analgesics. Getting out of bed. The family does not want her to go home and would like short term rehabilitation. 2. Dementia. Followup with neurology as outpatient. 3. Hyponatremia, chronic. Does not need attention. 4. Atrial fibrillation. Rate is controlled and she takes Xarelto for anticoagulation.
[2019-11-29 10:00] VITALS: BP 138/80
[2019-11-29 14:00] VITALS: BP 140/83
[2019-11-29 18:00] VITALS: BP 132/68
[2019-11-29] MEDS: PRAMIPEXOLE 0.25 MG TAB PO SCH (21:29)
[2019-11-29] MEDS: RIVAROXABAN 15 MG TAB (XARELTO) PO SCH (21:30)
[2019-11-29] MEDS: LETROZOLE 2.5 MG TAB PO SCH (21:30)
[2019-11-29] MEDS: IRBESARTAN 150 MG TAB PO SCH (21:30)
[2019-11-29] MEDS: ATORVASTATIN 10 MG TAB PO SCH (21:30)
[2019-11-29 22:00] VITALS: BP 137/85
[2019-11-30] MEDS: ACETAMINOPHEN TAB 650MG DOSE (2X325MG) PO PRN ×3 (00:17→17:10)
[2019-11-30] MEDS: CYCLOBENZAPRINE 5MG TABLET PO PRN (00:17)
[2019-11-30 02:00] VITALS: BP 135/81
[2019-11-30 06:00] VITALS: BP 127/77
[2019-11-30 06:08] LABS: HEMATOCRIT 32.8 % (36.0-47.0); MEAN CORPUSCULAR HEMOGLOBIN 30.4 pg (27.0-33.0); MEAN CORPUSCULAR HGB CONC 33.5 g/dl (32.0-36.5); MEAN CORPUSCULAR VOLUME 90.6 fl (80.0-96.0); PLATELET COUNT, AUTOMATED 195 10^3/uL (150-450); RED BLOOD COUNT 3.62 10^6/uL (4.00-5.40); WHITE BLOOD COUNT 7.6 10^3/uL (4.0-10.0)
[2019-11-30 06:31] LABS: CALCIUM LEVEL 8.2 MG/DL (8.8-10.2); CREATININE FOR GFR 1.12 MG/DL (0.55-1.30); GLOMERULAR FILTRATION RATE 49.5 (>32); POTASSIUM SERUM 3.7 MEQ/L (3.5-5.1)
[2019-11-30] MEDS: LIDOCAINE 5% (LIDODERM) PATCH TD SCH (06:31)
[2019-11-30] MEDS: ESCITALOPRAM OXALATE 10 MG TAB (LEXAPRO) PO SCH (09:21)
[2019-11-30] MEDS: LEVOTHYROXINE 125MCG TABLET (0.125MG) PO SCH (09:21)
[2019-11-30] MEDS: buPROPion **XL** TABLET 150MG (WELLBUTRIN XL) PO SCH (09:21)
[2019-11-30] MEDS: ANALGESIC BALM CRM 120 GM TOP SCH ×2 (09:22→21:25)
[2019-11-30 10:00] VITALS: BP 146/82
--- NOTE | 2019-11-30 10:43 | IPN ---
DATE: 11/30/2019 [facility] She has lost some ground with her rehabilitation. She is having trouble getting out of bed due to pain issues. She is being seen by occupational therapy (OT) during my assessment today. She will need to be straight catheterized for urinary retention. She has atrial fibrillation. Her rate is mildly elevated. We started some diltiazem last night. She does have atrial fibrillation and was on propranolol for rate control as an outpatient. IMPRESSION: 1. L1 compression fracture. I think she needs subacute rehabilitation. She is being reassessed by physical therapy (PT) and occupational therapy (OT). Pain control has been provided but this is a slow healing process. 2. Dementia. Workup per neurology. 3. Atrial fibrillation. Rate is mildly elevated. Started on diltiazem. We will switch to sustain release formula. She is anticoagulated with Xarelto. 4. Urinary retention. Straight catheterize as needed. 5. Hypertension. Blood pressure is under good control.
[2019-11-30 11:34] LABS: ALBUMIN % 53.9 % (55.8-66.1)
[2019-11-30 11:35] LABS: ALBUMIN 3.88 GM/DL (3.29-5.55); ALPHA-1-GLOBULIN % 6.3 % (2.9-4.9); ALPHA-1-GLOBULINS 0.45 GM/DL (0.17-0.41); ALPHA-2-GLOBULINS % 16.7 % (7.1-11.8); BETA-1-GLOBULINS 0.37 GM/DL (0.28-0.60); BETA-1-GLOBULINS % 5.2 % (4.7-7.2); BETA-2-GLOBULINS 0.41 GM/DL (0.19-0.55); BETA-2-GLOBULINS % 5.7 % (3.2-6.5); GAMMA GLOBULIN % 12.2 % (11.1-18.8); GAMMA GLOBULINS 0.88 GM/DL (0.65-1.58)
[2019-11-30 14:00] VITALS: BP 146/94
[2019-11-30 18:00] VITALS: BP 139/87
[2019-11-30] MEDS: **NOTE PATIENT COMMENT** MISC XX SCH (18:20)
[2019-11-30] MEDS: PRAMIPEXOLE 0.25 MG TAB PO SCH (21:21)
[2019-11-30] MEDS: LETROZOLE 2.5 MG TAB PO SCH (21:21)
[2019-11-30] MEDS: ATORVASTATIN 10 MG TAB PO SCH (21:22)
[2019-11-30] MEDS: RIVAROXABAN 15 MG TAB (XARELTO) PO SCH (21:22)
[2019-11-30] MEDS: IRBESARTAN 150 MG TAB PO SCH (21:24)
[2019-11-30 22:00] VITALS: BP 135/84
[2019-12-01 02:00] VITALS: BP 139/71
[2019-12-01 05:59] LABS: HEMATOCRIT 32.5 % (36.0-47.0); MEAN CORPUSCULAR HGB CONC 33.8 g/dl (32.0-36.5); MEAN CORPUSCULAR VOLUME 91.5 fl (80.0-96.0); PLATELET COUNT, AUTOMATED 205 10^3/uL (150-450); RED BLOOD COUNT 3.55 10^6/uL (4.00-5.40); WHITE BLOOD COUNT 7.8 10^3/uL (4.0-10.0)
[2019-12-01 06:00] VITALS: BP 140/78
[2019-12-01] MEDS ORDERED: LEVOTHYROXINE 125MCG TABLET (0.125MG) PO SCH (06:00)
[2019-12-01] MEDS: LIDOCAINE 5% (LIDODERM) PATCH TD SCH (06:10)
[2019-12-01 06:25] LABS: CALCIUM LEVEL 8.7 MG/DL (8.8-10.2); CREATININE FOR GFR 1.14 MG/DL (0.55-1.30); GLOMERULAR FILTRATION RATE 48.5 (>32); POTASSIUM SERUM 3.2 MEQ/L (3.5-5.1)
[2019-12-01] MEDS: buPROPion **XL** TABLET 150MG (WELLBUTRIN XL) PO SCH (08:55)
[2019-12-01] MEDS: LEVOTHYROXINE 125MCG TABLET (0.125MG) PO SCH (08:55)
[2019-12-01] MEDS: ESCITALOPRAM OXALATE 10 MG TAB (LEXAPRO) PO SCH (08:55)
[2019-12-01] MEDS: ANALGESIC BALM CRM 120 GM TOP SCH ×2 (08:56→21:17)
--- NOTE | 2019-12-01 09:16 | CR ---
DATE OF CONSULTATION: 12/01/2019 CHIEF COMPLAINT: Low back pain. This is a pleasant 83-year-old female that has been admitted for 4-5 days at this point due to low back pain. She says this developed after having a fall while trying to move furniture last . She denies any chest pain, fevers, chills, nausea, vomiting, balance issues, saddle anesthesia, radicular pain, bowel or bladder incontinence. Describes a sharp low back pain, 6 or 7 out of 10, it is made worse with any sort of movement. It is alleviated with rest and pain medications. Denies any fevers, chills, nausea or vomiting. Health survey reviewed. Complete 10 system review was notable for the pertinent positives and negatives in the HPI. All other systems negative. PAST MEDICAL HISTORY AND SURGICAL HISTORY: Atrial fibrillation on Xarelto. Chronic kidney disease stage III. Chronic hypertension. Dyslipidemia. Anxiety. Depression. Gastroesophageal reflux disease (GERD). Hypothyroidism. Right breast cancer status post lumpectomy. Status post bilateral knee replacement. Status post laparoscopic cholecystectomy. Status post appendectomy. Status post tonsillectomy and adenoidectomy. SOCIAL HISTORY: The patient is a former smoker. Denies alcohol and recreational drug use. ALLERGIES: 1. AMOXICILLIN. 2. MEPERIDINE. HOME MEDICATIONS: - atorvastatin - bupropion - citalopram - irbesartan - letrozole - levothyroxine - omeprazole - pramipexole - propranolol - rivaroxaban PHYSICAL EXAMINATION: The patient is awake, alert and oriented. Well dressed, appropriate affect. Breathing well on room air. Normocephalic, atraumatic. Bilateral upper extremities: No tenderness to palpation. Positive range of motion in the fingers, wrists and elbows without any pain or discomfort. Skin is intact. Radial pulses 2+, regular rate. Sensation intact to light touch in superficial, sensory branch, radial nerve, median, and ulnar nerve. Positive AIN, PIN and ulnar motor nerve function. Bilateral lower extremities negative clonus. Sensation intact to light touch in the L2-S1 distributions, L2-S1 4/5 motor strength due to pain. Low singer back tender to palpation, low thoracic high lumbar spine. Most recent vitals are 98.4 degrees, 81 pulse, 20 respiratory rate, 135/84 blood pressure, 97 pulse oximetry on room air. LABS: 7.6 WBC, 3.6 RBC, 11 and 32 hemoglobin and hematocrit, platelets 195. Imaging reviewed. Lumbar spine x-ray demonstrating no acute fracture or dislocation, but slight mild 4-5 spondylolisthesis. However, CTA lumbar spine was also reviewed demonstrating a left L1 transverse process fracture, and once again re-demonstrating the mild L4-5 spondylolisthesis. DIAGNOSIS: Left L2 transverse process. I discussed with the patient and primary team that there is nothing to do as this will heal uneventfully over time. However, it is causing significant pain as is the muscular attachment with any sort of low core movement. At this point she can be weightbearing as tolerated, range of motion as tolerated and proceed without any restrictions from the orthopedic department. The patient and the primary team expressed understanding and agreement with this plan. She can followup as an outpatient. Edited 12/01/2019 @ 0931 darin
[2019-12-01 10:00] VITALS: BP 140/82
--- NOTE | 2019-12-01 10:23 | IPN ---
DATE OF SERVICE: 12/01/2019 [facility] Apparently, the rehabilitation bed might be available in the next day or so. Consulted orthopedics yesterday, so we can have formal consultation as far as her L1 transverse process fracture. They recommended weightbearing as tolerated, range of motion as tolerated, proceed without any restriction, per orthopedic department. The patient has picked up a slight cough. I am worried about atelectasis. She has incentive spirometry but is not using it. PHYSICAL EXAMINATION: Afebrile. Vital signs stable. Oxygen (O2) saturation 96%. Alert and conversant. Lungs: A few rales at the bases. Heart: Regular rate and rhythm. Abdomen: Soft, nontender. Low back is tender to palpate left side. Electrolytes unremarkable. Complete blood count (CBC) stable. IMPRESSION: 1. L1 compression fracture. Continue physical therapy without restriction, per orthopedics. 2. Suspected atelectasis. The importance of incentive spirometry discussed.
[2019-12-01] MEDS: NORCO, ANEXSIA 5/325MG TABLET (HYDROcodone/ACETAMINOPHEN) PO PRN (13:37)
[2019-12-01 14:00] VITALS: BP 165/89
[2019-12-01] MEDS: **NOTE PATIENT COMMENT** MISC XX SCH (17:43)
[2019-12-01 18:00] VITALS: BP 138/82
[2019-12-01] MEDS ORDERED: POTASSIUM CHLORIDE 10 MEQ SR TABLET PO ONE (20:00)
[2019-12-01] MEDS: LETROZOLE 2.5 MG TAB PO SCH (21:14)
[2019-12-01] MEDS: IRBESARTAN 150 MG TAB PO SCH (21:16)
[2019-12-01] MEDS: ATORVASTATIN 10 MG TAB PO SCH (21:16)
[2019-12-01] MEDS: RIVAROXABAN 15 MG TAB (XARELTO) PO SCH (21:16)
[2019-12-01] MEDS: PRAMIPEXOLE 0.25 MG TAB PO SCH (21:17)
[2019-12-01 22:00] VITALS: BP 146/84
[2019-12-02 02:00] VITALS: BP 140/78
[2019-12-02] MEDS: NORCO, ANEXSIA 5/325MG TABLET (HYDROcodone/ACETAMINOPHEN) PO PRN (03:29)
[2019-12-02 05:16] VITALS: BP 122/72
[2019-12-02] MEDS: LIDOCAINE 5% (LIDODERM) PATCH TD SCH (05:21)
[2019-12-02 06:00] VITALS: BP 122/72
[2019-12-02] MEDS ORDERED: LEVOTHYROXINE 125MCG TABLET (0.125MG) PO SCH (06:00)
[2019-12-02] MEDS ORDERED: DILT30TA PO (07:39)
[2019-12-02] MEDS ORDERED: LIDO5TD TD (07:39)
[2019-12-02] MEDS ORDERED: ACET1TAB55 PO (07:39)
[2019-12-02] MEDS ORDERED: PEG1POW PO (07:39)
[2019-12-02] MEDS ORDERED: SENN-52 PO (07:39)
[2019-12-02] MEDS: ANALGESIC BALM CRM 120 GM TOP SCH (08:32)
[2019-12-02] MEDS: buPROPion **XL** TABLET 150MG (WELLBUTRIN XL) PO SCH (08:32)
[2019-12-02] MEDS: ESCITALOPRAM OXALATE 10 MG TAB (LEXAPRO) PO SCH (08:32)
[2019-12-02] MEDS: ACETAMINOPHEN TAB 650MG DOSE (2X325MG) PO PRN (08:32)
[2019-12-02] MEDS: CYCLOBENZAPRINE 5MG TABLET PO PRN (08:49)
[2019-12-03 08:06] LABS: VITAMIN B6,PYRIDOXAL PHOSPHATE 24.3 ug/L (2.0-32.8); VITAMIN E(ALPHA TOCOPHEROL) 12.1 mg/L (9.0-29.0); VITAMIN E(GAMMA TOCOPHEROL) 0.7 mg/L (0.5-4.9)
== END 2019-12-02 09:29 | DRG 552 ==
LOC: M ED 16:47 → M ED INP 19:20 → ENRESERVTM 19:58 → ENRESERVDT 19:58 → M MSPAV 21:48
PROVIDERS: ADMIT Internal Medicine; ATTEND Family Medicine
DX: S32.018A Other fracture of first lumbar vertebra, initial encounter for closed fracture (principal); S22.32XA Fracture of one rib, left side, initial encounter for closed fracture; E87.1 Hypo-osmolality and hyponatremia; J98.11 Atelectasis; W18.39XA Other fall on same level, initial encounter; Y93.E9 Activity, other interior property and clothing maintenance; Y92.019 Unspecified place in single-family (private) house as the place of occurrence of the external cause; I48.91 Unspecified atrial fibrillation; N18.3 Chronic kidney disease, stage 3 (moderate); G31.84 Mild cognitive impairment of uncertain or unknown etiology; I12.9 Hypertensive chronic kidney disease with stage 1 through stage 4 chronic kidney disease, or unspecified chronic kidney disease; E78.5 Hyperlipidemia, unspecified; R33.9 Retention of urine, unspecified; F41.9 Anxiety disorder, unspecified; F32.9 Major depressive disorder, single episode, unspecified; R29.6 Repeated falls; M48.061 Spinal stenosis, lumbar region without neurogenic claudication; K21.9 Gastro-esophageal reflux disease without esophagitis; E03.9 Hypothyroidism, unspecified; Z80.3 Family history of malignant neoplasm of breast; Z96.653 Presence of artificial knee joint, bilateral; Z90.49 Acquired absence of other specified parts of digestive tract; Z87.891 Personal history of nicotine dependence; Z79.01 Long term (current) use of anticoagulants; Z79.899 Other long term (current) drug therapy; Z88.0 Allergy status to penicillin; Z88.8 Allergy status to other drugs, medicaments and biological substances

== ENCOUNTER 2020-02-17 13:25 | Emergency (ER) | payer MEDICARE ==
[~2020-02-17] VITALS: Ht 162.6 cm; Wt 81.8 kg
[~2020-02-17 13:25] MED LIST changes: +ACET1TAB55 PO; +DILT30TA PO; +ESCI10TA2 PO; +HYDR-3713 PO; +LIDO5TD TD; +PEG1POW PO; +SENN-52 PO
[2020-02-17 14:30] VITALS: BP 146/84
--- NOTE | 2020-02-17 14:37 | REP ---
CT LUMBAR SPINE WITHOUT CONTRAST: HISTORY: Injury in a fall. Comparison CT study November 26, 2019. CT FINDINGS: The recently noted healing fracture of the posterior 12th rib on the left at the costovertebral junction is seen to have healed. Similarly, the recently noted left transverse process at L1 fracture appears healed. However, there is an acute compression fracture deformity involving the inferior endplate of the L4 vertebral body. This is associated with at 10-15% loss of vertebral body heights at L4 and minimal paravertebral edema. There is a degenerative grade 1 L4-5 spondylolisthesis measuring 3 mm. This is unchanged. Degenerative disc disease is seen at 34-, 4-5, and 5-1. No other acute fracture is seen. There are healing sacral insufficiency fractures bilaterally in the upper sacrum. This is new when compared with the November 26, 2019 prior study. There is healing sclerosis associated with these however. IMPRESSION: 1. Acute compression fracture deformity inferior endplate L4 vertebral body with 10-15% loss of vertebral body height. No evidence of posterior element involvement. Stable degenerative grade 1 3 mm L4-5 spondylolisthesis. 2. Subacute/healing sacral insufficiency fractures bilaterally involving the upper sacrum. 3. Old healed left posterior 12th rib and left L1 transverse process fractures. Electronically Signed by Nicholas Han MD 02/17/2020 02:43 P
--- NOTE | 2020-02-18 06:48 | ED PDOC ---
Post-Departure Follow-Up dr duckworth faxed formal report of ct ls spine for fu Lucina Dutton MD February 18, 2020 06:48
== END 2020-02-17 15:09 | disposition home or self-care (01) ==
LOC: EDBD 13:25 → M ED 13:25
DX: S32.040A Wedge compression fracture of fourth lumbar vertebra, initial encounter for closed fracture (principal); W18.30XA Fall on same level, unspecified, initial encounter; Y92.098 Other place in other non-institutional residence as the place of occurrence of the external cause; S32.19XD Other fracture of sacrum, subsequent encounter for fracture with routine healing; X58.XXXD Exposure to other specified factors, subsequent encounter; M43.16 Spondylolisthesis, lumbar region; Z87.81 Personal history of (healed) traumatic fracture; I10 Essential (primary) hypertension; K21.9 Gastro-esophageal reflux disease without esophagitis; E78.9 Disorder of lipoprotein metabolism, unspecified; Z88.0 Allergy status to penicillin; Z88.5 Allergy status to narcotic agent; Z79.899 Other long term (current) drug therapy; Z79.01 Long term (current) use of anticoagulants

== ENCOUNTER 2020-05-11 16:00 | Inpatient (IN) | payer MEDICARE ==
[~2020-05-11 16:00] MED LIST changes: +LIDOCAINE 1% MDV 20ML VIAL As Ordered ONE
[2020-05-11] MEDS ORDERED: IRBESARTAN 150MG TAB ONE (21:00)
[2020-05-11] MEDS ORDERED: PRAMIPEXOLE 0.25 MG TAB ONE (21:00)
[2020-05-11] MEDS ORDERED: LETROZOLE 2.5 MG TAB ONE (21:00)
[2020-05-11] MEDS ORDERED: ATORVASTATIN 10 MG TAB As Ordered ONE (23:56)
[2020-05-11] MEDS ORDERED: cefTRIAXone SOD 1GM VIAL (J0696 PER 250MG) As Ordered ONE (23:56)
[2020-05-11] MEDS ORDERED: HEPARIN SOD (PORCINE) 5000UNITS/ML 1ML VIAL/SYRINGE As Ordered ONE (23:56)
[2020-05-12] MEDS ORDERED: MORPHINE 2 MG/ML 1ML VIAL (J2270) As Ordered ONE ×4 (04:08→18:56)
[2020-05-12] MEDS ORDERED: LEVOTHYROXINE 150MCG TABLET (0.15MG) As Ordered ONE (05:53)
[2020-05-12] MEDS ORDERED: ESCITALOPRAM OXALATE 10 MG TAB (LEXAPRO) As Ordered ONE (09:58)
[2020-05-12] MEDS ORDERED: MULTIVITAMINS/MINERALS THERAP 1 TAB As Ordered ONE (09:58)
[2020-05-12] MEDS ORDERED: HEPARIN SOD (PORCINE) 5000UNITS/ML 1ML VIAL/SYRINGE As Ordered ONE ×2 (09:58→22:03)
[2020-05-12] MEDS ORDERED: buPROPion **XL** TABLET 150MG (WELLBUTRIN XL) As Ordered ONE (10:04)
[2020-05-12] MEDS ORDERED: PROPRANOLOL 20 MG TAB As Ordered ONE ×2 (14:26→22:04)
[2020-05-12] MEDS ORDERED: ATORVASTATIN 10 MG TAB As Ordered ONE (22:04)
[2020-05-12] MEDS ORDERED: cefTRIAXone SOD 1GM VIAL (J0696 PER 250MG) As Ordered ONE (22:05)
[2020-05-12] MEDS ORDERED: ACETAMINOPHEN TAB 650MG DOSE (2X325MG) As Ordered ONE (22:12)
[2020-05-13] MEDS ORDERED: MORPHINE 2 MG/ML 1ML VIAL (J2270) As Ordered ONE ×2 (04:12→14:10)
[2020-05-13] MEDS ORDERED: LEVOTHYROXINE 125MCG TABLET (0.125MG) As Ordered ONE (06:06)
[2020-05-13] MEDS ORDERED: propofoL 200 MG/20 ML VIAL As Ordered ONE (09:30)
[2020-05-13] MEDS ORDERED: ONDANSETRON 4MG/2ML VIAL As Ordered ONE (09:30)
[2020-05-13] MEDS ORDERED: dexameTHASONE 4 MG/ML 1ML VIAL (J1100 PER 1MG) As Ordered ONE (09:30)
[2020-05-13] MEDS ORDERED: LIDOCAINE 2% 100MG/5ML SDV (FOR ANES.) As Ordered ONE (09:30)
[2020-05-13] MEDS ORDERED: ESCITALOPRAM OXALATE 10 MG TAB (LEXAPRO) As Ordered ONE (09:59)
[2020-05-13] MEDS ORDERED: MULTIVITAMINS/MINERALS THERAP 1 TAB As Ordered ONE (09:59)
[2020-05-13] MEDS ORDERED: PROPRANOLOL 20 MG TAB As Ordered ONE ×2 (09:59→21:36)
[2020-05-13] MEDS ORDERED: buPROPion **XL** TABLET 150MG (WELLBUTRIN XL) As Ordered ONE (10:01)
[2020-05-13] MEDS ORDERED: HEPARIN SOD (PORCINE) 5000UNITS/ML 1ML VIAL/SYRINGE As Ordered ONE ×2 (10:58→21:35)
[2020-05-13] MEDS ORDERED: PRAMIPEXOLE 0.25 MG TAB ONE (11:00)
[2020-05-13] MEDS ORDERED: cefTRIAXone SOD 1GM VIAL (J0696 PER 250MG) As Ordered ONE (21:36)
[2020-05-13] MEDS ORDERED: ATORVASTATIN 10 MG TAB As Ordered ONE (21:36)
[2020-05-14] MEDS ORDERED: MORPHINE 2 MG/ML 1ML VIAL (J2270) As Ordered ONE ×2 (01:41→14:23)
[2020-05-14] MEDS ORDERED: PROPRANOLOL 20 MG TAB As Ordered ONE ×2 (07:44→20:08)
[2020-05-14] MEDS ORDERED: KETAMINE HCL 200 MG/20 ML VIAL As Ordered ONE (07:48)
[2020-05-14] MEDS ORDERED: MIDAZOLAM INJ 2MG/2ML VIAL (J2250 PER 1MG) As Ordered ONE (07:50)
[2020-05-14] MEDS ORDERED: ceFAZolin 2 GM/D5W 50 ML IV BAG (J0690 PER 500MG) As Ordered ONE (07:56)
[2020-05-14] MEDS ORDERED: MULTIVITAMINS/MINERALS THERAP 1 TAB As Ordered ONE (14:11)
[2020-05-14] MEDS ORDERED: ESCITALOPRAM OXALATE 10 MG TAB (LEXAPRO) As Ordered ONE (14:12)
[2020-05-14] MEDS ORDERED: buPROPion **XL** TABLET 150MG (WELLBUTRIN XL) As Ordered ONE (14:13)
[2020-05-14] MEDS ORDERED: ATORVASTATIN 10 MG TAB As Ordered ONE (20:08)
[2020-05-14] MEDS ORDERED: cefTRIAXone SOD 1GM VIAL (J0696 PER 250MG) As Ordered ONE (22:24)
[2020-05-15] MEDS ORDERED: LEVOTHYROXINE 125MCG TABLET (0.125MG) As Ordered ONE (06:03)
[2020-05-15] MEDS ORDERED: MORPHINE 2 MG/ML 1ML VIAL (J2270) As Ordered ONE ×2 (08:19→14:10)
[2020-05-15] MEDS ORDERED: MULTIVITAMINS/MINERALS THERAP 1 TAB As Ordered ONE (08:53)
[2020-05-15] MEDS ORDERED: ESCITALOPRAM OXALATE 10 MG TAB (LEXAPRO) As Ordered ONE (08:53)
[2020-05-15] MEDS ORDERED: PROPRANOLOL 20 MG TAB As Ordered ONE ×2 (08:53→21:34)
[2020-05-15] MEDS ORDERED: buPROPion **XL** TABLET 150MG (WELLBUTRIN XL) As Ordered ONE (08:58)
[2020-05-15] MEDS ORDERED: MOM 30ML SUSPENSION UDC As Ordered ONE (10:42)
[2020-05-15] MEDS ORDERED: MIRALAX *UNIT DOSE* 17GM PACKET As Ordered ONE (10:42)
[2020-05-15] MEDS ORDERED: PROPRANOLOL 20 MG TAB ONE (13:00)
[2020-05-15] MEDS ORDERED: IRBESARTAN 150MG TAB ONE (13:00)
[2020-05-15] MEDS ORDERED: LETROZOLE 2.5 MG TAB ONE (13:00)
[2020-05-15] MEDS ORDERED: PRAMIPEXOLE 0.25 MG TAB ONE (13:00)
[2020-05-15] MEDS ORDERED: ATORVASTATIN 10 MG TAB As Ordered ONE (21:34)
[2020-05-15] MEDS ORDERED: RIVAROXABAN 15 MG TAB (XARELTO) As Ordered ONE (21:34)
[2020-05-15] MEDS ORDERED: cefTRIAXone SOD 1GM VIAL (J0696 PER 250MG) As Ordered ONE (21:35)
[2020-05-16] MEDS ORDERED: LEVOTHYROXINE 125MCG TABLET (0.125MG) As Ordered ONE (05:31)
[2020-05-16] MEDS ORDERED: MORPHINE 2 MG/ML 1ML VIAL (J2270) As Ordered ONE ×2 (05:46→11:21)
[2020-05-16] MEDS ORDERED: MIRALAX *UNIT DOSE* 17GM PACKET As Ordered ONE (09:48)
[2020-05-16] MEDS ORDERED: MULTIVITAMINS/MINERALS THERAP 1 TAB As Ordered ONE (09:48)
[2020-05-16] MEDS ORDERED: ESCITALOPRAM OXALATE 10 MG TAB (LEXAPRO) As Ordered ONE (09:48)
[2020-05-16] MEDS ORDERED: PROPRANOLOL 20 MG TAB As Ordered ONE (09:49)
[2020-05-16] MEDS ORDERED: MOM 30ML SUSPENSION UDC As Ordered ONE (09:49)
[2020-05-16] MEDS ORDERED: buPROPion **XL** TABLET 150MG (WELLBUTRIN XL) As Ordered ONE (09:52)
[2020-05-16] MEDS ORDERED: ONDANSETRON 4MG/2ML VIAL IV PRN (10:15)
[2020-05-16] MEDS ORDERED: LORazepam 2 MG/ML VIAL IV PRN (10:15)
[2020-05-16] MEDS ORDERED: MORPHINE 2 MG/ML 1ML VIAL (J2270) IV PRN (10:15)
[2020-05-16] MEDS ORDERED: SODIUM CHLORIDE 0.9% INJ 10 ML SYR IV PRN (10:15)
[2020-05-16] MEDS ORDERED: ALEN70TA74 PO (10:15)
[2020-05-16] MEDS ORDERED: D31000TA2 PO (10:15)
[2020-05-16] MEDS ORDERED: ACET1TAB55 PO (10:15)
[2020-05-16] MEDS ORDERED: SODIUM CHLORIDE 0.9% INJ 10 ML SYR IV SCH (10:15)
[2020-05-16] MEDS: cefTRIAXone SOD 1 GM in D5W MINI-BAG PLUS 50 ML IV SCH (21:39)
[2020-05-16] MEDS: PROPRANOLOL 20 MG TAB PO SCH (21:39)
[2020-05-16] MEDS: ATORVASTATIN 10 MG TAB PO SCH (21:40)
[2020-05-16] MEDS: traMADol 50 MG TAB PO PRN (21:41)
[2020-05-16] MEDS: PRAMIPEXOLE 0.25 MG TAB PO SCH (21:41)
[2020-05-16] MEDS: NS 1,000 ML IV SCH (21:47)
[2020-05-16] MEDS: RIVAROXABAN 15 MG TAB (XARELTO) PO SCH (21:47)
[2020-05-16 21:50] LABS: HEMATOCRIT 27.6 % (36.0-47.0); HEMOGLOBIN 9.3 g/dl (12.0-15.5); MEAN CORPUSCULAR HEMOGLOBIN 30.5 pg (27.0-33.0); MEAN CORPUSCULAR HGB CONC 33.7 g/dl (32.0-36.5); MEAN CORPUSCULAR VOLUME 90.5 fl (80.0-96.0); PLATELET COUNT, AUTOMATED 181 10^3/uL (150-450); RED BLOOD COUNT 3.05 10^6/uL (4.00-5.40); WHITE BLOOD COUNT 10.1 10^3/uL (4.0-10.0)
[2020-05-16 22:00] VITALS: BP 155/87
[2020-05-17 02:00] VITALS: BP 157/69
[2020-05-17] MEDS: NS 1,000 ML IV SCH ×2 (05:38→16:00)
[2020-05-17] MEDS: traMADol 50 MG TAB PO PRN ×2 (05:38→11:47)
[2020-05-17] MEDS: LEVOTHYROXINE 125MCG TABLET (0.125MG) PO SCH (05:38)
[2020-05-17 06:00] VITALS: BP 155/94
[2020-05-17 06:38] LABS: HEMATOCRIT 25.5 % (36.0-47.0); HEMOGLOBIN 8.7 g/dl (12.0-15.5); MEAN CORPUSCULAR HGB CONC 34.1 g/dl (32.0-36.5); MEAN CORPUSCULAR VOLUME 90.7 fl (80.0-96.0); PLATELET COUNT, AUTOMATED 194 10^3/uL (150-450); RED BLOOD COUNT 2.81 10^6/uL (4.00-5.40); WHITE BLOOD COUNT 10.9 10^3/uL (4.0-10.0)
--- NOTE | 2020-05-17 08:47 | IPNPDOC ---
Text Note Date of Service The patient was seen on 05/17/20. NOTE Subjective: Patient seen and examined at bedside. Sitting in chair, feels constipated. No other medical complaints this morning. Objective: General: NAD, sitting comfortably in chair, elderly HEENT: NC/AT, EOMI Lungs: CTA B/L HearT: +S1S2, RRR Abd: soft, NT, +BS Ext: no edema A/P: 84 yo female POD #3 right hip repair s/p fall, complicated with acute blood loss anemia, poor oral intake, PMHx hypothyroidism, dyslipidemia, afib/xarelto. #right Hip Fx - as per surgery - rehab as per ortho - to resume A/C as per ortho #hyponatremia/poor oral intake - started IV fluids yesterday - BMP pending #ABLA - s/p 2 units PRBC - H/H trending down - continue to follow #rib fractures - s/p fall - no complaints of pain - saturating well on room air #HTN - stable #DLP - statin #hypothyroidism - oral supplementation #afib - rate controlled - to resume a/c as per ortho - on xarelto #DVT prophylaxis - as above as per ortho VS,Fishbone, I+O VS, Fishbone, I+O Laboratory Tests 05/17/20 06:17 Vital Signs Date Time Temp Pulse Resp B/P (MAP) Pulse Ox O2 Delivery O2 Flow Rate FiO2 05/17/20 06:12 18 05/17/20 06:00 97.4 89 155/94 (114) 99 Room Air I&O- Last 24 Hours up to 6 AM 05/17/20 06:00 Intake Total 1410 ml Output Total 0 ml Balance 1410 ml ANNIE WALKER MD May 17, 2020 08:47
[2020-05-17] MEDS ORDERED: SENNA 8.6 MG TAB (SENOKOT) PO PRN (09:00)
[2020-05-17] MEDS ORDERED: DOCUSATE SODIUM 100 MG CAP PO PRN (09:00)
[2020-05-17] MEDS: MULTIVITAMINS/MINERALS THERAP 1 TAB PO SCH (09:33)
[2020-05-17] MEDS: LETROZOLE 2.5 MG TAB PO SCH (09:33)
[2020-05-17] MEDS: MOM 30ML SUSPENSION UDC PO SCH (09:33)
[2020-05-17] MEDS: buPROPion **XL** TABLET 150MG (WELLBUTRIN XL) PO SCH (09:33)
[2020-05-17] MEDS: MIRALAX *UNIT DOSE* 17GM PACKET PO SCH (09:33)
[2020-05-17] MEDS: IRBESARTAN 150MG TAB PO SCH (09:42)
[2020-05-17] MEDS: PROPRANOLOL 20 MG TAB PO SCH ×2 (09:43→21:01)
[2020-05-17] MEDS: ESCITALOPRAM OXALATE 10 MG TAB (LEXAPRO) PO SCH (09:44)
[2020-05-17 10:23] LABS: BLOOD UREA NITROGEN 16 MG/DL (7-18); CALCIUM LEVEL 8.4 MG/DL (8.8-10.2); CARBON DIOXIDE LEVEL 24 MEQ/L (21-32); CHLORIDE LEVEL 98 MEQ/L (98-107); CREATININE FOR GFR 0.74 MG/DL (0.55-1.30); GLOMERULAR FILTRATION RATE > 60.0 (>32); GLUCOSE, FASTING 97 MG/DL (70-100); POTASSIUM SERUM 4.4 MEQ/L (3.5-5.1); SODIUM LEVEL 129 MEQ/L (136-145)
[2020-05-17 14:00] VITALS: BP 138/92
[2020-05-17] MEDS: PERCOCET 5MG/325MG TAB PO PRN (15:59)
[2020-05-17] MEDS: RIVAROXABAN 15 MG TAB (XARELTO) PO SCH (18:01)
[2020-05-17 20:30] VITALS: BP 166/100
[2020-05-17] MEDS: ATORVASTATIN 10 MG TAB PO SCH (21:01)
[2020-05-17] MEDS: PRAMIPEXOLE 0.25 MG TAB PO SCH (21:01)
[2020-05-17] MEDS: ACETAMINOPHEN TAB 650MG DOSE (2X325MG) PO PRN (21:02)
[2020-05-17] MEDS: cefTRIAXone SOD 1 GM in D5W MINI-BAG PLUS 50 ML IV SCH (21:02)
[2020-05-17 22:00] VITALS: BP 117/73
[2020-05-18] MEDS: NS 1,000 ML IV SCH ×2 (03:16→12:58)
[2020-05-18 06:00] VITALS: BP 147/89
[2020-05-18] MEDS: LEVOTHYROXINE 125MCG TABLET (0.125MG) PO SCH (06:19)
[2020-05-18] MEDS: PERCOCET 5MG/325MG TAB PO PRN ×3 (06:21→20:09)
[2020-05-18 06:53] LABS: HEMATOCRIT 26.5 % (36.0-47.0); HEMOGLOBIN 8.9 g/dl (12.0-15.5); MEAN CORPUSCULAR HEMOGLOBIN 30.8 pg (27.0-33.0); MEAN CORPUSCULAR HGB CONC 33.6 g/dl (32.0-36.5); MEAN CORPUSCULAR VOLUME 91.7 fl (80.0-96.0); PLATELET COUNT, AUTOMATED 227 10^3/uL (150-450); RED BLOOD COUNT 2.89 10^6/uL (4.00-5.40); WHITE BLOOD COUNT 9.4 10^3/uL (4.0-10.0)
[2020-05-18 07:20] LABS: BLOOD UREA NITROGEN 14 MG/DL (7-18); CALCIUM LEVEL 7.8 MG/DL (8.8-10.2); CARBON DIOXIDE LEVEL 24 MEQ/L (21-32); CHLORIDE LEVEL 99 MEQ/L (98-107); CREATININE FOR GFR 0.64 MG/DL (0.55-1.30); GLOMERULAR FILTRATION RATE > 60.0 (>32); GLUCOSE, FASTING 83 MG/DL (70-100); POTASSIUM SERUM 4.2 MEQ/L (3.5-5.1); SODIUM LEVEL 129 MEQ/L (136-145)
[2020-05-18] MEDS: MOM 30ML SUSPENSION UDC PO SCH (09:00)
[2020-05-18] MEDS: MIRALAX *UNIT DOSE* 17GM PACKET PO SCH (09:23)
[2020-05-18] MEDS: PROPRANOLOL 20 MG TAB PO SCH ×2 (09:24→20:08)
[2020-05-18] MEDS: ESCITALOPRAM OXALATE 10 MG TAB (LEXAPRO) PO SCH (09:24)
[2020-05-18] MEDS: buPROPion **XL** TABLET 150MG (WELLBUTRIN XL) PO SCH (09:24)
[2020-05-18] MEDS: IRBESARTAN 150MG TAB PO SCH (09:25)
[2020-05-18] MEDS: LETROZOLE 2.5 MG TAB PO SCH (09:25)
[2020-05-18] MEDS: MULTIVITAMINS/MINERALS THERAP 1 TAB PO SCH (09:25)
--- NOTE | 2020-05-18 10:12 | IPNPDOC ---
Text Note Date of Service The patient was seen on 05/18/20. NOTE Subjective: Patient seen and examined at bedside. No new medical complaints this morning. Still requiring straight cath for urinary retention. Objective: General: NAD, lying comfortably in bed, elderly HEENT: NC/AT, EOMI Lungs: CTA B/L HearT: +S1S2, RRR Abd: soft, NT, +BS Ext: no edema A/P: 84 yo female POD #3 right hip repair s/p fall, complicated with acute blood loss anemia, poor oral intake, PMHx hypothyroidism, dyslipidemia, afib/xarelto. #right Hip Fx - as per surgery - rehab as per ortho - to resume A/C as per ortho #urinary retention - MRI L spine pending for further eval - continue bladder scan/straight cath #hyponatremia/poor oral intake - started IV fluids yesterday - labs pending for further workup #ABLA - s/p 2 units PRBC - stable #rib fractures - s/p fall - no complaints of pain - saturating well on room air #HTN - stable #DLP - statin #hypothyroidism - oral supplementation #afib - rate controlled - to resume a/c as per ortho - on xarelto #DVT prophylaxis - as above as per ortho VS,Fishbone, I+O VS, Fishbone, I+O Laboratory Tests 05/18/20 06:00 05/18/20 06:10 Vital Signs Date Time Temp Pulse Resp B/P (MAP) Pulse Ox O2 Delivery O2 Flow Rate FiO2 05/18/20 09:24 82 145/89 05/18/20 06:51 18 Room Air 05/18/20 06:00 98.5 96 I&O- Last 24 Hours up to 6 AM 05/18/20 06:00 Intake Total 2970 ml Output Total 0 ml Balance 2970 ml ANNIE WALKER MD May 18, 2020 10:11
[2020-05-18 10:50] LABS: OSMOLALITY SERUM 263 MOSM/KG (280-301)
[2020-05-18 13:05] LABS: HEMATOCRIT 22.5 % (36.0-47.0); HEMOGLOBIN 7.5 g/dl (12.0-15.5); MEAN CORPUSCULAR HEMOGLOBIN 30.5 pg (27.0-33.0); MEAN CORPUSCULAR HGB CONC 33.3 g/dl (32.0-36.5); MEAN CORPUSCULAR VOLUME 91.5 fl (80.0-96.0); PLATELET COUNT, AUTOMATED 177 10^3/uL (150-450); RED BLOOD COUNT 2.46 10^6/uL (4.00-5.40); WHITE BLOOD COUNT 8.1 10^3/uL (4.0-10.0)
[2020-05-18 14:00] VITALS: BP 167/85
--- NOTE | 2020-05-18 16:18 | REPVR ---
PROCEDURE INFORMATION: Exam: MR Lumbar Spine Without Contrast. Exam date and time: 05/18/2020 8:45 AM Age: 84 years old Clinical indication: Weakness; Patient HX: Insufficiency FX, urinary retention TECHNIQUE: Imaging protocol: Multiplanar magnetic resonance images of the lumbar spine without intravenous contrast. COMPARISON: CT Spine, lumbar w/o contrast 02/17/2020 1:47 PM FINDINGS: Vertebrae: There is an inferior endplate depression at L4, with formed fracture line paralleling the inferior endplate, and mild approximately 25% loss of anterior vertebral body height at this level. This fracture can be seen on 02/17/2020 CT. The presence of marrow edema at L4 indicates nonhealing and or continued compression. No other lumbar spinal fractures are seen. Edema at the superior L5 endplate may be degenerative or compressive induced. There are chronic Schmorl's nodes at several lumbar levels. There is minimal anterolisthesis at L4-L5. Spinal cord: The distal spinal cord and conus medullaris are normal in signal and morphology. The cauda equina nerve roots are normally distributed within the thecal sac, with no clumping or adhesions. L1-L2: No significant disc disease. No significant spinal canal stenosis. No neural foraminal stenosis. L2-L3: Mild diffuse disc bulge causing no significant central canal stenosis. Minimal bilateral neural foraminal stenosis. L3-L4: Disc bulge and facet arthropathy cause moderate central canal stenosis, with moderate bilateral neural foraminal stenosis, greater on the right. L4-L5: Diffuse disc bulge with left paracentral disc extrusion migrating several mm above the disc level. Facet hypertrophy contributes to moderate to severe central canal stenosis, with bilateral lateral recess stenosis. Moderate right and severe left neural foraminal stenosis at L4-L5. L5-S1: Diffuse disc bulge combining with facet hypertrophy to cause [id number] bilateral neural foraminal stenosis. Sacrum/coccyx: There are bilateral sacral insufficiency fractures which can be seen on 02/17/2020 CT. Other bones/joints: The T1 marrow signal is diffusely heterogeneous. This likely reflects osteopenia, but an active marrow placement process such as multiple myeloma, lymphoma, leukemia or metastatic disease. Correlate with clinical information. No cortical destruction is seen. IMPRESSION: 1. L4 compression fracture, as above. 2. Lower lumbar spondylosis and facet arthropathy causing multilevel central canal and neural foraminal stenosis, as above. 3. Bilateral sacral insufficiency fractures. Electronically signed by: Ruma Odonnell On 05/18/2020 16:18:59 PM
[2020-05-18] MEDS: RIVAROXABAN 15 MG TAB (XARELTO) PO SCH (17:21)
[2020-05-18] MEDS: PRAMIPEXOLE 0.25 MG TAB PO SCH (20:08)
[2020-05-18] MEDS: ATORVASTATIN 10 MG TAB PO SCH (20:08)
[2020-05-18] MEDS: cefTRIAXone SOD 1 GM in D5W MINI-BAG PLUS 50 ML IV SCH (21:10)
[2020-05-18 22:00] VITALS: BP 154/89
[2020-05-19] MEDS: NS 1,000 ML IV SCH (01:54)
[2020-05-19] MEDS: PERCOCET 5MG/325MG TAB PO PRN ×2 (04:11→12:04)
[2020-05-19 06:00] VITALS: BP 156/91
[2020-05-19] MEDS: LEVOTHYROXINE 125MCG TABLET (0.125MG) PO SCH (06:01)
[2020-05-19] MEDS: MOM 30ML SUSPENSION UDC PO SCH (09:00)
[2020-05-19] MEDS: MIRALAX *UNIT DOSE* 17GM PACKET PO SCH (09:00)
--- NOTE | 2020-05-19 10:30 | IPNPDOC ---
Text Note Date of Service The patient was seen on 05/19/20. NOTE Subjective: Patient seen and examined at bedside. No new medical complaints this morning. Kwong catheter was placed. She is feeling much better today. Objective: General: NAD, lying comfortably in bed, elderly HEENT: NC/AT, EOMI Lungs: CTA B/L HearT: +S1S2, RRR Abd: soft, NT, +BS Ext: no edema Psych: alert, oriented x 3 this morning A/P: 84 yo female s/p right hip repair s/p fall, complicated with acute blood loss anemia, poor oral intake, PMHx hypothyroidism, dyslipidemia, afib/xarelto. #right Hip Fx - s/p surgical - follow as per ortho - assistance appreciated #urinary retention - MRI L spine with no acute pathology - kwong catheter placed #hyponatremia/poor oral intake - improving #ABLA - s/p 2 units PRBC - stable #rib fractures - s/p fall - no complaints of pain - saturating well on room air #HTN - stable #DLP - statin #hypothyroidism - oral supplementation #afib - rate controlled - to resume a/c as per ortho - on xarelto #DVT prophylaxis - as above as per ortho Dispo: pending placement/rehab VS,Fishbone, I+O VS, Fishbone, I+O Vital Signs Date Time Temp Pulse Resp B/P (MAP) Pulse Ox O2 Delivery O2 Flow Rate FiO2 05/19/20 06:00 98.1 82 18 156/91 (112) 98 Room Air I&O- Last 24 Hours up to 6 AM 05/19/20 06:00 Intake Total 1010 ml Output Total 1075 ml Balance -65 ml ANNIE WALKER MD May 19, 2020 10:30
[2020-05-19] MEDS: ESCITALOPRAM OXALATE 10 MG TAB (LEXAPRO) PO SCH (11:01)
[2020-05-19] MEDS: MULTIVITAMINS/MINERALS THERAP 1 TAB PO SCH (11:01)
[2020-05-19] MEDS: buPROPion **XL** TABLET 150MG (WELLBUTRIN XL) PO SCH (11:02)
[2020-05-19] MEDS: LETROZOLE 2.5 MG TAB PO SCH (11:03)
[2020-05-19] MEDS: PROPRANOLOL 20 MG TAB PO SCH ×2 (11:06→21:19)
[2020-05-19] MEDS: IRBESARTAN 150MG TAB PO SCH (11:06)
[2020-05-19 14:00] VITALS: BP 160/93
[2020-05-19] MEDS: RIVAROXABAN 15 MG TAB (XARELTO) PO SCH (17:34)
[2020-05-19] MEDS: PRAMIPEXOLE 0.25 MG TAB PO SCH (21:17)
[2020-05-19] MEDS: ATORVASTATIN 10 MG TAB PO SCH (21:17)
[2020-05-19] MEDS: cefTRIAXone SOD 1 GM in D5W MINI-BAG PLUS 50 ML IV SCH (21:19)
[2020-05-19 22:00] VITALS: BP 158/96
[2020-05-20] MEDS: PERCOCET 5MG/325MG TAB PO PRN ×3 (05:47→20:23)
[2020-05-20] MEDS: LEVOTHYROXINE 125MCG TABLET (0.125MG) PO SCH (05:48)
[2020-05-20 06:00] VITALS: BP 150/90
[2020-05-20] MEDS: MOM 30ML SUSPENSION UDC PO SCH (09:22)
[2020-05-20] MEDS: MIRALAX *UNIT DOSE* 17GM PACKET PO SCH (09:22)
[2020-05-20] MEDS: buPROPion **XL** TABLET 150MG (WELLBUTRIN XL) PO SCH (09:23)
[2020-05-20] MEDS: LETROZOLE 2.5 MG TAB PO SCH (09:23)
[2020-05-20] MEDS: IRBESARTAN 150MG TAB PO SCH (09:24)
[2020-05-20] MEDS: MULTIVITAMINS/MINERALS THERAP 1 TAB PO SCH (09:25)
[2020-05-20] MEDS: ESCITALOPRAM OXALATE 10 MG TAB (LEXAPRO) PO SCH (09:25)
[2020-05-20] MEDS: PROPRANOLOL 20 MG TAB PO SCH ×2 (09:25→20:31)
[2020-05-20 14:00] VITALS: BP 142/94
--- NOTE | 2020-05-20 14:00 | IPNPDOC ---
Text Note Date of Service The patient was seen on 05/20/20. NOTE Subjective: Patient seen and examined at bedside. No new medical complaints this morning. Objective: General: NAD, sitting comfortably in chair, elderly, in good spirits HEENT: NC/AT, EOMI Lungs: CTA B/L HearT: +S1S2, RRR Abd: soft, NT, +BS Ext: no edema Psych: alert, oriented to person and place this morning A/P: 84 yo female s/p right hip repair s/p fall, complicated with acute blood loss anemia, poor oral intake, PMHx hypothyroidism, dyslipidemia, afib/xarelto. #right Hip Fx - s/p surgical - follow as per ortho - assistance appreciated #urinary retention - MRI L spine with no acute pathology - kwong catheter placed - likely post/op anaesthesia effect - d/w urology - trial of void in 7-10 days, continue kwong #hyponatremia/poor oral intake - improving #ABLA - s/p 2 units PRBC - stable #rib fractures - s/p fall - no complaints of pain - saturating well on room air #HTN - stable #DLP - statin #hypothyroidism - oral supplementation #afib - rate controlled - to resume a/c as per ortho - on xarelto #DVT prophylaxis - as above as per ortho Dispo: pending placement/rehab; discussed with daughter at length, she prefers placement at [facility] VS,Fishbone, I+O VS, Fishbone, I+O Vital Signs Date Time Temp Pulse Resp B/P (MAP) Pulse Ox O2 Delivery O2 Flow Rate FiO2 05/20/20 12:49 22 05/20/20 09:25 76 155/91 05/20/20 06:17 Room Air 05/20/20 06:00 97.9 96 I&O- Last 24 Hours up to 6 AM 05/20/20 05:59 Intake Total 1020 ml Output Total 1500 ml Balance -480 ml ANNIE WALKER MD May 20, 2020 14:00
[2020-05-20] MEDS: NITROFURANTOIN (MACROBID) 100 MG CAP PO SCH (15:41)
[2020-05-20] MEDS ORDERED: ALPHA LIPOIC ACID 600 MG PO PRN (15:45)
[2020-05-20] MEDS ORDERED: [UNRECOGNIZED DRUG - OTHER] TOP PRN (15:45)
[2020-05-20] MEDS: RIVAROXABAN 15 MG TAB (XARELTO) PO SCH (17:22)
[2020-05-20] MEDS: PRAMIPEXOLE 0.25 MG TAB PO SCH (20:23)
[2020-05-20] MEDS: ATORVASTATIN 10 MG TAB PO SCH (20:23)
[2020-05-20 22:00] VITALS: BP 158/88
[2020-05-20 23:19] LABS: BLOOD UREA NITROGEN 18 MG/DL (7-18); CARBON DIOXIDE LEVEL 27 MEQ/L (21-32); CHLORIDE LEVEL 98 MEQ/L (98-107); CREATININE FOR GFR 0.79 MG/DL (0.55-1.30); GLOMERULAR FILTRATION RATE > 60.0 (>32); GLUCOSE, FASTING 98 MG/DL (70-100); POTASSIUM SERUM 4.7 MEQ/L (3.5-5.1); SODIUM LEVEL 130 MEQ/L (136-145)
[2020-05-21] MEDS: LEVOTHYROXINE 125MCG TABLET (0.125MG) PO SCH (05:06)
[2020-05-21] MEDS: PERCOCET 5MG/325MG TAB PO PRN ×2 (05:06→15:30)
[2020-05-21 05:20] VITALS: BP 152/90
[2020-05-21] MEDS: MULTIVITAMINS/MINERALS THERAP 1 TAB PO SCH (08:49)
[2020-05-21] MEDS: IRBESARTAN 150MG TAB PO SCH (08:49)
[2020-05-21] MEDS: NITROFURANTOIN (MACROBID) 100 MG CAP PO SCH (08:49)
[2020-05-21] MEDS: ESCITALOPRAM OXALATE 10 MG TAB (LEXAPRO) PO SCH (08:49)
[2020-05-21] MEDS: PROPRANOLOL 20 MG TAB PO SCH ×2 (08:49→21:30)
[2020-05-21] MEDS: MIRALAX *UNIT DOSE* 17GM PACKET PO SCH (08:50)
[2020-05-21] MEDS: LETROZOLE 2.5 MG TAB PO SCH (08:50)
[2020-05-21] MEDS: MOM 30ML SUSPENSION UDC PO SCH (08:50)
[2020-05-21] MEDS: buPROPion **XL** TABLET 150MG (WELLBUTRIN XL) PO SCH (08:57)
[2020-05-21 10:48] LABS: BLOOD UREA NITROGEN 8 MG/DL (7-18); CALCIUM LEVEL 8.6 MG/DL (8.8-10.2); CARBON DIOXIDE LEVEL 24 MEQ/L (21-32); CHLORIDE LEVEL 97 MEQ/L (98-107); CREATININE FOR GFR 0.68 MG/DL (0.55-1.30); GLOMERULAR FILTRATION RATE > 60.0 (>32); GLUCOSE, FASTING 84 MG/DL (70-100); POTASSIUM SERUM 3.8 MEQ/L (3.5-5.1); SODIUM LEVEL 130 MEQ/L (136-145)
--- NOTE | 2020-05-21 12:20 | IPNPDOC ---
Text Note Date of Service The patient was seen on 05/21/20. NOTE Subjective: Patient seen and examined at bedside. No new medical complaints this morning. Objective: General: NAD, lying comfortably in bed, elderly, in good spirits HEENT: NC/AT, EOMI Lungs: CTA B/L HearT: +S1S2, RRR Abd: soft, NT, +BS Ext: no edema Psych: alert, oriented to person and place this morning A/P: 84 yo female s/p right hip repair s/p fall, complicated with acute blood loss anemia, poor oral intake, PMHx hypothyroidism, dyslipidemia, afib/xarelto. #right Hip Fx - s/p surgical - follow as per ortho - assistance appreciated #urinary retention - MRI L spine with no acute pathology - kwong catheter placed - likely post/op anaesthesia effect - d/w urology - trial of void in 7-10 days, continue kwong #hyponatremia/poor oral intake - improving #ABLA - s/p 2 units PRBC - stable #rib fractures - s/p fall - no complaints of pain - saturating well on room air #HTN - stable #DLP - statin #hypothyroidism - oral supplementation #afib - rate controlled - to resume a/c as per ortho - on xarelto #DVT prophylaxis - as above as per ortho Dispo: pending placement/rehab; discussed with daughter at length, she prefers placement at [facility] VS,Fishbone, I+O VS, Fishbone, I+O Laboratory Tests 05/21/20 10:05 Vital Signs Date Time Temp Pulse Resp B/P (MAP) Pulse Ox O2 Delivery O2 Flow Rate FiO2 05/21/20 08:49 68 163/104 05/21/20 08:00 18 05/21/20 05:20 96.8 96 Room Air I&O- Last 24 Hours up to 6 AM 05/21/20 05:59 Intake Total 840 ml Output Total 2150 ml Balance -1310 ml ANNIE WALKER MD May 21, 2020 12:20
[2020-05-21 13:47] LABS: BASO # 0.1 10^3/uL (0.0-0.2); BASO % 0.6 % (0.0-1.0); EOS # 0.2 10^3/uL (0.0-0.5); EOS % 1.7 % (0.0-3.0); HEMATOCRIT 29.2 % (36.0-47.0); HEMOGLOBIN 9.9 g/dl (12.0-15.5); LYMPH # 1.6 10^3/uL (1.5-5.0); LYMPH % 13.5 % (24.0-44.0); MEAN CORPUSCULAR HEMOGLOBIN 31.3 pg (27.0-33.0); MEAN CORPUSCULAR HGB CONC 33.9 g/dl (32.0-36.5); MEAN CORPUSCULAR VOLUME 92.4 fl (80.0-96.0); MONO # 1.1 10^3/uL (0.0-0.8); MONO % 9.7 % (0.0-5.0); NEUTROPHILS # 8.5 10^3/uL (1.5-8.5); NEUTROPHILS % 73.2 % (36.0-66.0); PLATELET COUNT, AUTOMATED 324 10^3/uL (150-450); RED BLOOD COUNT 3.16 10^6/uL (4.00-5.40); WHITE BLOOD COUNT 11.7 10^3/uL (4.0-10.0)
[2020-05-21 14:00] VITALS: BP 148/87
[2020-05-21] MEDS: RIVAROXABAN 15 MG TAB (XARELTO) PO SCH (18:27)
[2020-05-21] MEDS: ATORVASTATIN 10 MG TAB PO SCH (21:30)
[2020-05-21] MEDS: PRAMIPEXOLE 0.25 MG TAB PO SCH (21:30)
[2020-05-21] MEDS: ACETAMINOPHEN TAB 650MG DOSE (2X325MG) PO PRN (21:30)
[2020-05-21 22:00] VITALS: BP 133/88
[2020-05-22 06:00] VITALS: BP 163/82
[2020-05-22] MEDS: PERCOCET 5MG/325MG TAB PO PRN ×2 (06:09→15:20)
[2020-05-22] MEDS: LEVOTHYROXINE 125MCG TABLET (0.125MG) PO SCH (06:09)
[2020-05-22 06:19] LABS: HEMATOCRIT 27.8 % (36.0-47.0); HEMOGLOBIN 9.1 g/dl (12.0-15.5); MEAN CORPUSCULAR HGB CONC 32.7 g/dl (32.0-36.5); MEAN CORPUSCULAR VOLUME 91.7 fl (80.0-96.0); PLATELET COUNT, AUTOMATED 331 10^3/uL (150-450); RED BLOOD COUNT 3.03 10^6/uL (4.00-5.40); WHITE BLOOD COUNT 9.2 10^3/uL (4.0-10.0)
[2020-05-22 06:51] LABS: BLOOD UREA NITROGEN 10 MG/DL (7-18); CALCIUM LEVEL 8.2 MG/DL (8.8-10.2); CARBON DIOXIDE LEVEL 27 MEQ/L (21-32); CHLORIDE LEVEL 96 MEQ/L (98-107); GLOMERULAR FILTRATION RATE > 60.0 (>32); GLUCOSE, FASTING 82 MG/DL (70-100); POTASSIUM SERUM 3.8 MEQ/L (3.5-5.1); SODIUM LEVEL 131 MEQ/L (136-145)
[2020-05-22] MEDS ORDERED: NITR100C2 PO (07:49)
[2020-05-22] MEDS: MOM 30ML SUSPENSION UDC PO SCH (09:00)
[2020-05-22] MEDS: MIRALAX *UNIT DOSE* 17GM PACKET PO SCH (09:00)
[2020-05-22] MEDS: ESCITALOPRAM OXALATE 10 MG TAB (LEXAPRO) PO SCH (09:53)
[2020-05-22] MEDS: buPROPion **XL** TABLET 150MG (WELLBUTRIN XL) PO SCH (09:53)
[2020-05-22] MEDS: PROPRANOLOL 20 MG TAB PO SCH ×2 (09:53→20:05)
[2020-05-22] MEDS: MULTIVITAMINS/MINERALS THERAP 1 TAB PO SCH (09:54)
[2020-05-22] MEDS: IRBESARTAN 150MG TAB PO SCH (09:55)
[2020-05-22] MEDS: NITROFURANTOIN (MACROBID) 100 MG CAP PO SCH (09:55)
[2020-05-22] MEDS: LETROZOLE 2.5 MG TAB PO SCH (09:56)
[2020-05-22 14:00] VITALS: BP 153/88
[2020-05-22] MEDS: RIVAROXABAN 15 MG TAB (XARELTO) PO SCH (18:04)
--- NOTE | 2020-05-22 19:58 | IPNPDOC ---
Text Note Date of Service The patient was seen on 05/22/20. NOTE Subjective: No acute events overnight. Patient denies any fevers, chills, chest pain, sob, abdominal pain, nausea, vomiting. Objective: General: Sitting upright in bed resting comfortably in no acute distress. HEENT: NC, AT. EOMI, no scleral icterus. No pharyngeal erythema, mucous membranes moist. CV: RRR, normal S1 and S2. Lungs: CTAB with full breath sounds. No wheezes, crackles, or rhonchi. Abd:Bowel sounds present, abdomen is soft, NT, ND Ext: no edema Psych: alert, oriented to person and place this morning Assessment/Plan: 84 yo female s/p right hip repair s/p fall, complicated with acute blood loss anemia, poor oral intake, PMHx hypothyroidism, dyslipidemia, afib/xarelto. #. Right Hip Fx - s/p surgical repair - follow as per ortho - assistance appreciated #. Acute blood loss anemia - s/p 2 units PRBC - [facility] "unhappy" with her H/H. Will contact them tomorrow for further information regarding this. #. Urinary retention - MRI L spine with no acute pathology - kwong catheter placed - likely post/op anaesthesia effect - d/w urology - trial of void in 7-10 days, continue kwong #. Hyponatremia/poor oral intake - Improving #. rib fractures - s/p fall - no complaints of pain - saturating well on room air #. HTN - stable #. Dyslipidemia - Continue statin #. Hypothyroidism - Continue synthroid #afib - rate controlled - to resume a/c as per ortho - on xarelto #DVT prophylaxis - as above as per ortho Dispo: Placement at [facility] pending [facility] approval. Patient/daughter prefers [facility] placement however no beds available. VS,Fishbone, I+O VS, Fishbone, I+O Laboratory Tests 05/22/20 06:00 Vital Signs Date Time Temp Pulse Resp B/P (MAP) Pulse Ox O2 Delivery O2 Flow Rate FiO2 05/22/20 15:50 20 05/22/20 14:00 98.5 66 153/88 (109) 99 Room Air I&O- Last 24 Hours up to 6 AM 05/22/20 05:59 Intake Total 930 ml Output Total 975 ml Balance -45 ml GME ATTESTATION GME ATTESTATION My faculty preceptor for this patient encounter was physically present during the encounter and was fully available. All aspects of the patient interview, examination, medical decision making process, and medical care plan development were reviewed and approved by the faculty preceptor. The faculty preceptor is aware and concurs with the plan as stated in the body of this note and will attest to such by his/her cosignature. ATTENDING NOTE Patient seen and examined independently. Agree with resident's note. SHRUTI URBINA DO May 22, 2020 19:58 ANNIE WALKER MD Jun 14, 2020 08:08
[2020-05-22] MEDS: PRAMIPEXOLE 0.25 MG TAB PO SCH (20:05)
[2020-05-22] MEDS: ATORVASTATIN 10 MG TAB PO SCH (20:05)
[2020-05-22 22:00] VITALS: BP 137/80
[2020-05-23] MEDS: LEVOTHYROXINE 125MCG TABLET (0.125MG) PO SCH (05:44)
[2020-05-23 06:00] VITALS: BP 142/68
[2020-05-23 06:37] LABS: HEMATOCRIT 29.2 % (36.0-47.0); HEMOGLOBIN 9.6 g/dl (12.0-15.5); MEAN CORPUSCULAR HEMOGLOBIN 30.2 pg (27.0-33.0); MEAN CORPUSCULAR HGB CONC 32.9 g/dl (32.0-36.5); MEAN CORPUSCULAR VOLUME 91.8 fl (80.0-96.0); PLATELET COUNT, AUTOMATED 370 10^3/uL (150-450); RED BLOOD COUNT 3.18 10^6/uL (4.00-5.40); WHITE BLOOD COUNT 9.7 10^3/uL (4.0-10.0)
[2020-05-23] MEDS: MOM 30ML SUSPENSION UDC PO SCH (09:00)
[2020-05-23] MEDS: MIRALAX *UNIT DOSE* 17GM PACKET PO SCH (09:00)
[2020-05-23] MEDS: LETROZOLE 2.5 MG TAB PO SCH (09:42)
[2020-05-23] MEDS: buPROPion **XL** TABLET 150MG (WELLBUTRIN XL) PO SCH (09:42)
[2020-05-23] MEDS: ESCITALOPRAM OXALATE 10 MG TAB (LEXAPRO) PO SCH (09:43)
[2020-05-23] MEDS: MULTIVITAMINS/MINERALS THERAP 1 TAB PO SCH (09:43)
[2020-05-23] MEDS: NITROFURANTOIN (MACROBID) 100 MG CAP PO SCH (09:43)
[2020-05-23] MEDS: IRBESARTAN 150MG TAB PO SCH (09:45)
[2020-05-23] MEDS: PROPRANOLOL 20 MG TAB PO SCH ×2 (09:45→21:17)
[2020-05-23 10:34] LABS: BLOOD UREA NITROGEN 10 MG/DL (7-18); CALCIUM LEVEL 8.1 MG/DL (8.8-10.2); CARBON DIOXIDE LEVEL 29 MEQ/L (21-32); CHLORIDE LEVEL 95 MEQ/L (98-107); GLOMERULAR FILTRATION RATE > 60.0 (>32); GLUCOSE, FASTING 82 MG/DL (70-100); POTASSIUM SERUM 3.8 MEQ/L (3.5-5.1); SODIUM LEVEL 130 MEQ/L (136-145)
[2020-05-23 14:00] VITALS: BP 178/94
[2020-05-23] MEDS: PERCOCET 5MG/325MG TAB PO PRN ×2 (14:48→21:17)
[2020-05-23] MEDS: amLODIPine 5 MG TAB PO SCH (14:50)
[2020-05-23] MEDS: RIVAROXABAN 15 MG TAB (XARELTO) PO SCH (18:20)
[2020-05-23] MEDS: ATORVASTATIN 10 MG TAB PO SCH (21:17)
--- NOTE | 2020-05-23 21:18 | IPNPDOC ---
Text Note Date of Service The patient was seen on 05/23/20. NOTE Subjective: No acute events overnight. Patient denies any fevers, chills, chest pain, sob, abdominal pain, nausea, vomiting. Objective: General: Sitting upright in bed resting comfortably in no acute distress. HEENT: NC, AT. EOMI, no scleral icterus. No pharyngeal erythema, mucous membranes moist. CV: RRR, normal S1 and S2. Lungs: CTAB with full breath sounds. No wheezes, crackles, or rhonchi. Abd:Bowel sounds present, abdomen is soft, NT, ND Ext: no edema Psych: alert, oriented to person and place this morning Assessment/Plan: 84 yo female s/p right hip repair s/p fall, complicated with acute blood loss anemia, poor oral intake, PMHx hypothyroidism, dyslipidemia, afib/xarelto. #. Right Hip Fx - s/p surgical repair - follow as per ortho - assistance appreciated #. Acute blood loss anemia - Hgb improved to 9.6 - s/p 2 units PRBC - [facility] "unhappy" with her H/H on 05/22. Awaiting bed availability. #. Urinary retention - MRI L spine with no acute pathology - kwong catheter placed - likely post/op anaesthesia effect - d/w urology - trial of void in 7-10 days, continue kwong #. Hyponatremia/poor oral intake - Improving #. rib fractures - s/p fall - no complaints of pain - saturating well on room air #. HTN - stable #. Dyslipidemia - Continue statin #. Hypothyroidism - Continue synthroid #afib - rate controlled - to resume a/c as per ortho - on xarelto #DVT prophylaxis - as above as per ortho Dispo: ALC status, pending bed availability at [facility] she will go there tomorrow and can seek transfer to [facility] from there. VS,Fishbone, I+O VS, Fishbone, I+O Laboratory Tests 05/23/20 06:07 Vital Signs Date Time Temp Pulse Resp B/P (MAP) Pulse Ox O2 Delivery O2 Flow Rate FiO2 05/23/20 15:18 18 05/23/20 14:50 70 178/94 05/23/20 14:00 99.0 96 05/23/20 06:00 Room Air I&O- Last 24 Hours up to 6 AM 05/23/20 05:59 Intake Total 330 ml Output Total 1225 ml Balance -895 ml GME ATTESTATION GME ATTESTATION My faculty preceptor for this patient encounter was physically present during the encounter and was fully available. All aspects of the patient interview, examination, medical decision making process, and medical care plan development were reviewed and approved by the faculty preceptor. The faculty preceptor is aware and concurs with the plan as stated in the body of this note and will attest to such by his/her cosignature. ATTENDING NOTE I, Gardenia Christine, have independently examined this patient and performed my own physical exam, as well as reviewed the documentation and edited where necessary. I have discussed in detail with the resident / student the findings and plan of treatment as documented by the resident / student and edited their note. I agree with their findings and treatment plan and have edited their documentation. I will continue to follow the patient during this hospital stay. SHRUTI URBINA DO May 23, 2020 21:18 GARDENIA CHRISTINE MD May 24, 2020 14:02
[2020-05-23 22:00] VITALS: BP 151/90
[2020-05-24] MEDS: PRAMIPEXOLE 0.25 MG TAB PO SCH (02:04)
[2020-05-24] MEDS: PERCOCET 5MG/325MG TAB PO PRN (04:03)
[2020-05-24 06:00] VITALS: BP 162/80
[2020-05-24] MEDS: LEVOTHYROXINE 125MCG TABLET (0.125MG) PO SCH (07:03)
[2020-05-24] MEDS: buPROPion **XL** TABLET 150MG (WELLBUTRIN XL) PO SCH (09:53)
[2020-05-24] MEDS: IRBESARTAN 150MG TAB PO SCH (09:53)
[2020-05-24] MEDS: MOM 30ML SUSPENSION UDC PO SCH (09:53)
[2020-05-24] MEDS: MIRALAX *UNIT DOSE* 17GM PACKET PO SCH (09:53)
[2020-05-24 09:54] VITALS: BP 160/90
[2020-05-24] MEDS: ESCITALOPRAM OXALATE 10 MG TAB (LEXAPRO) PO SCH (09:54)
[2020-05-24] MEDS: PROPRANOLOL 20 MG TAB PO SCH (09:54)
[2020-05-24] MEDS: MULTIVITAMINS/MINERALS THERAP 1 TAB PO SCH (09:55)
[2020-05-24] MEDS: amLODIPine 5 MG TAB PO SCH (09:55)
[2020-05-24] MEDS: LETROZOLE 2.5 MG TAB PO SCH (09:55)
[2020-05-24] MEDS ORDERED: LASI20TA3 PO (10:38)
--- NOTE | 2020-05-24 22:15 | DS.PDOC ---
Discharge Summary General Date of Admission May 11, 2020 at 16:00 Date of Discharge 05/24/2020 Primary Care Physician: Jr Valentine Collins Attending Physician: GARDENIA FUENTES MD Specialist/Consultants Involve: WILLIAM SIMPSON MD Discharge Summary PROCEDURES PERFORMED DURING STAY: R-ORIF. ADMITTING/DISCHARGE DIAGNOSES: 1. Right hip fracture 2. hypertension 3. Hyperlipidemia 4. Hypothyroidism 5. Atrial fibrillation. 6. Urinary retention COMPLICATIONS/CHIEF COMPLAINT: Right Hip Fx. HISTORY OF PRESENT ILLNESS/HOSPITAL COURSE: History and physical exam unavailable for review secondary to shut down. However relayed story from sign out is patient is an 84 year old female who fell and presented to the ED with weakness/pain found to have a right hip fracture. She underwent surgical repair with Dr. Simpson on 05/14/2020 with some post operative acute blood loss anemia requiring transfusion of 2 units. She was in urinary retention post operatively and it was presumed to be due to secondary effects from anesthesia with recommendations for kwong and trial of void in 7-10 days. Her discharge was delayed because of difficulties obtaining a bed at [facility]. DISCHARGE MEDICATIONS: Please see below. ALLERGIES: Please see below. PHYSICAL EXAMINATION ON DISCHARGE: VITAL SIGNS: Please see below. General: Pleasant appearing female sitting upright in bed resting comfortably in no acute distress with daughter at bedside. HEENT: NC, AT. EOMI, no scleral icterus. No pharyngeal erythema, mucous membranes moist. CV: RRR, normal S1 and S2. Lungs: CTAB with full breath sounds. No wheezes, crackles, or rhonchi. Abd:Bowel sounds present, abdomen is soft, NT, ND Ext: 1+ pitting edema up to knee in bilateral LE Psych: alert, oriented to person and place this morning LABORATORY DATA: Please see below. IMAGING: Lumbar spine MRI 1. L4 compression fracture, as above. 2. Lower lumbar spondylosis and facet arthropathy causing multilevel central canal and neural foraminal stenosis, as above. 3. Bilateral sacral insufficiency fractures. PROGNOSIS: stable ACTIVITY: [As tolerated]. DIET: low sodium diet DISCHARGE PLAN: [facility] DISPOSITION: [facility]. DISCHARGE INSTRUCTIONS: 1. Please follow up with Dr. Simpson in 2 weeks. 2. Please follow up with PCP in the next 2 weeks. DISCHARGE CONDITION: [Stable]. TIME SPENT ON DISCHARGE: 35 minutes. Vital Signs/I&Os Vital Signs Date Time Temp Pulse Resp B/P (MAP) Pulse Ox O2 Delivery O2 Flow Rate FiO2 05/24/20 09:54 71 160/90 05/24/20 06:00 98.1 18 98 Room Air I&O- Last 24 Hours up to 6 AM 05/24/20 06:00 Intake Total 690 ml Output Total 2050 ml Balance -1360 ml Discharge Medications Scheduled Alendronate Sodium (Alendronate Sodium) 70 Mg Tablet, 70 MG PO QWEEK, (Reported) MONDAYS Atorvastatin Calcium (Atorvastatin Calcium) 10 Mg Tablet, 10 MG PO QHS, (Reported) Bupropion HCl (Bupropion Xl) 300 Mg Tab.er.24h, 300 MG PO DAILY, (Reported) Cholecalciferol (Vitamin D3) (Vitamin D3) 1,000 Unit Tablet, 1,000 UNITS PO QHS, (Reported) Escitalopram Oxalate (Escitalopram Oxalate) 10 Mg Tablet, 10 MG PO DAILY, (Reported) Irbesartan (Irbesartan) 150 Mg Tablet, 150 MG PO QHS, (Reported) TAKES AT BEDTIME, GIVEN IN AM AT [facility] Letrozole (Letrozole) 2.5 Mg Tablet, 2.5 MG PO DAILY, (Reported) Levothyroxine Sodium (Levothyroxine Sodium) 125 Mcg Tablet, 125 MCG PO DAILY, (Reported) Omeprazole (Omeprazole) 40 Mg Capsule.dr, 40 MG PO DAILY, (Reported) Pramipexole Di-HCl (Mirapex) 0.5 Mg Tablet, 0.5 MG PO QHS, (Reported) Propranolol HCl (Propranolol HCl) 40 Mg Tablet, 40 MG PO BID, (Reported) Rivaroxaban (Xarelto) 15 Mg Tablet, 15 MG PO QHS, (Reported) Scheduled PRN Acetaminophen (Acetaminophen) 325 Mg Tablet, 650 MG PO Q6H PRN for PAIN, (Reported) Furosemide (Lasix) 20 Mg Tablet, 20 MG PO DAILY PRN for leg swelling Allergies Coded Allergies: amoxicillin (Verified Allergy, Unknown, 11/22/19) meperidine (Verified Allergy, Unknown, 11/22/19) GME ATTESTATION GME ATTESTATION My faculty preceptor for this patient encounter was physically present during the encounter and was fully available. All aspects of the patient interview, examination, medical decision making process, and medical care plan development were reviewed and approved by the faculty preceptor. The faculty preceptor is aware and concurs with the plan as stated in the body of this note and will attest to such by his/her cosignature. ATTENDING NOTE I, Gardenia Fuentes, have independently examined this patient and performed my own physical exam, as well as reviewed the documentation and edited where necessary. I have discussed in detail with the resident / student the findings and plan of treatment as documented by the resident / student and edited their note. I agree with their findings and treatment plan and have edited their doc umentation. I will continue to follow the patient during this hospital stay. Time spent on discharge 25 minutes SHRUTI URBINA DO May 24, 2020 22:14 GARDENIA FUENTES MD May 25, 2020 12:57
[2020-07-02 18:02] LABS: APPEARANCE, URINE CLEAR (CLEAR); BACTERIA, URINE AUTO NEGATIVE (NEGATIVE); BILIRUBIN, URINE AUTO NEGATIVE (NEGATIVE); BLOOD, URINE BLOOD NEGATIVE (NEGATIVE); COLOR, URINE YELLOW (YELLOW); GLUCOSE, URINE (UA) AUTO NEGATIVE (NEGATIVE); KETONE, URINE AUTO NEGATIVE (NEGATIVE); LEUKOCYTE ESTERASE, URINE AUTO NEGATIVE (NEGATIVE); MUCUS, URINE SMALL (NEGATIVE); NITRITE, URINE AUTO NEGATIVE (NEGATIVE); PROTEIN, URINE AUTO 1+ mg/dL (NEGATIVE); RBC, URINE AUTO 0 /HPF (0-3); SPECIFIC GRAVITY URINE AUTO 1.016 (1.002-1.035); SQUAMOUS EPITHELIAL CELL UR AU 0 /HPF (0-6); UROBILINOGEN, URINE AUTO 0.2 mg/dL (0.0-2.0); WBC, URINE AUTO 0 /HPF (0-3)
--- NOTE | 2020-07-06 10:44 | RO ---
DATE OF OPERATION: 05/14/2020 PREOPERATIVE DIAGNOSIS: Right hip intertrochanteric fracture. POSTOPERATIVE DIAGNOSIS: Right hip intertrochanteric fracture. PLANNED PROCEDURE: Right open reduction and internal fixation (TFN-A) PROCEDURE PERFORMED: Right open reduction and internal fixation (TFN-A) SURGEON: Adriel Cast MD ANESTHESIOLOGIST: Gerry Butron MD ANESTHESIA: Spinal anesthetic. OPERATIVE PREAMBLE: This woman had a mechanical fall. She sustained a displaced intertrochanteric hip fracture. I talked to her daughter on the phone to obtain consent. My nurse practitioner was there as well to confirm discussion was taking place. We talked about the pros and cons, risks and benefits of going ahead with surgery versus nonoperative management. Surgical risks include but are not limited to infection, pain, stiffness, bleeding, damage to surrounding structures, neurovascular injury, weakness to limb, delayed, mal or nonunion, anesthetic complications, blood clots, and other risks. I marked the right lower extremity, saw the patient in the preoperative holding area and proceeded to surgery. OPERATIVE REPORT: The patient was brought to the operating theater, then administered spinal anesthetic by Dr. Burton. Two grams of IV Ancef were administered prior to the start of the case. The patient was transferred to the fracture table, the right leg in traction and internal rotation, the left leg in scissoring position, appropriately padded over the peroneal nerve to the center post. The bed was raised up. AP and lateral radiographs were taken to confirm proper reduction. The limb was prepped and draped in the usual sterile fashion with a sterile shower drape draped over the top of the other side of the body. A preoperative timeout was performed confirming the site, the patient and surgery. I began by making a small incision centered three fingerbreadths proximal to the greater trochanter. I inserted the 3.2 mm guidewire at the tip of the greater trochanter on both AP and lateral radiographs down to the center of the femoral shaft, pointing toward the lesser trochanter. I passed a reamer. I passed a ball-tip guidewire down to the center-center over top of the drill sleeve. This was center-center distally. I measured this to be 360 mm long. I stayed proximal to the total knee arthroplasty down distally. I reamed to a size 12.5 mm reamer. I passed the 125 degree neck shaft angle, 11 mm diameter, Synthes TFN-8, 360 mm I length down to appropriate depth. The ball-tip guidewire was removed. I used a drop down 125 degree guide. I used a percutaneous technique again to insert the 3.2 mm partially-threaded guidewire through the center of femoral head and neck in AP and lateral radiographs. This was slightly anteriorly on the lateral radiograph and slightly inferiorly on the AP radiograph. However, this was in acceptable position based on tip to apex distance. This measured 104 mm to the subchondral bone and reaming up to a size 100 mm and inserted a 100 mm helical blade, appropriately tapped down into position and locked proximally. The drop down guide was removed as well as the 3.2 mm guidewire. I used live fluoroscopy technique to ensure no subchondral orientation of the helical blade. I then turned my attention distally. Using perfect [place] technique, percutaneous technique, I inserted the two locking screws in standard fashion. These measured 42 mm in length distally as well as 40 mm in length proximally through the oblong hole. Final radiographs were saved proximally and distally. The aiming guide was removed proximally. The wounds were thoroughly irrigated. Th subcutaneous tissue was closed with 2-0 Vicryl sutures and skin hilda. Adaptic, 4x4 gauze and ABD dressing with gauze was then applied to the incisions. The patient was taken out traction, sat up, transferred off the operating table and taken to the postanesthesia care unit in stable condition. All sponge, needle, clamps and instrument counts were correct. No complications. Estimated blood loss: 100 cc. I communicated with the patients daughter after surgery. The patient is to be weightbearing as tolerated and will have PT and OT service in the hospital. Follow-up in two weeks' time to discontinue the hilda. We will also check repeat radiographs. We will change dressing postop day one. ORACIO
[2020-07-09 06:47] LABS: HEMATOCRIT 29.1 % (36.0-47.0); HEMOGLOBIN 9.9 g/dl (12.0-15.5); MEAN CORPUSCULAR HEMOGLOBIN 30.7 pg (27.0-33.0); MEAN CORPUSCULAR VOLUME 90.4 fl (80.0-96.0); PLATELET COUNT, AUTOMATED 167 10^3/uL (150-450); RED BLOOD COUNT 3.22 10^6/uL (4.00-5.40); WHITE BLOOD COUNT 10.2 10^3/uL (4.0-10.0)
[2020-07-09 06:48] LABS: INR 1.27; PROTHROMBIN TIME 16.2 SECONDS (12.5-14.3)
[2020-07-09 18:14] LABS: HEMATOCRIT 28.8 % (36.0-47.0); HEMOGLOBIN 9.6 g/dl (12.0-15.5); MEAN CORPUSCULAR HEMOGLOBIN 30.7 pg (27.0-33.0); MEAN CORPUSCULAR HGB CONC 33.3 g/dl (32.0-36.5); PLATELET COUNT, AUTOMATED 181 10^3/uL (150-450); RED BLOOD COUNT 3.13 10^6/uL (4.00-5.40); WHITE BLOOD COUNT 8.4 10^3/uL (4.0-10.0)
[2020-07-24 15:29] LABS: HEMATOCRIT 29.4 % (36.0-47.0); HEMOGLOBIN 10.1 g/dl (12.0-15.5); MEAN CORPUSCULAR HEMOGLOBIN 31.2 pg (27.0-33.0); MEAN CORPUSCULAR HGB CONC 34.4 g/dl (32.0-36.5); MEAN CORPUSCULAR VOLUME 90.7 fl (80.0-96.0); PLATELET COUNT, AUTOMATED 195 10^3/uL (150-450); RED BLOOD COUNT 3.24 10^6/uL (4.00-5.40); WHITE BLOOD COUNT 8.3 10^3/uL (4.0-10.0)
[2020-07-30 08:18] LABS: ALBUMIN 2.8 GM/DL (3.2-5.2); ALT/SGPT 27 U/L (12-78); BILIRUBIN,TOTAL 0.7 MG/DL (0.2-1.0); BLOOD UREA NITROGEN 15 MG/DL (7-18); CARBON DIOXIDE LEVEL 24 MEQ/L (21-32); CHLORIDE LEVEL 98 MEQ/L (98-107); CREATININE FOR GFR 0.78 MG/DL (0.55-1.30); GLOMERULAR FILTRATION RATE > 60.0 (>32); GLUCOSE, FASTING 96 MG/DL (70-100); MAGNESIUM LEVEL 1.7 MG/DL (1.8-2.4); POTASSIUM SERUM 3.9 MEQ/L (3.5-5.1); SODIUM LEVEL 129 MEQ/L (136-145)
--- NOTE | 2020-08-01 11:24 | REP ---
MEDLINE CATHETER INSERTION WITH MANUEL The procedure was performed under the direct supervision of Dr. Castaneda. The risks and benefits of the procedure were explained to the patient and informed consent was obtained. DESCRIPTION OF PROCEDURE: The right basilic vein was localized using ultrasound guidance. The skin was prepped and draped in a sterile fashion and 1% Lidocaine was used as a local anesthetic. Using ultrasound guidance, the basilic vein was cannulated and a 0.018 guidewire was inserted. The needle was removed and a 5.5 Indian dilator and Peel-Away sheath was inserted over the guidewire. A 5.5 Indian dual-lumen catheter was left at a length of 16.5 cm. The dilator was removed and the catheter was inserted over the guidewire. The Peel-Away sheath was removed and the catheter was flushed with heparinized saline as per hospital protocol. The catheter was affixed to the skin and a sterile dressing was applied. The patient tolerated the procedure well and there were no immediate complications. After the appropriate amount of monitored convalescence, the patient was discharged from the department. ORACIO
[2020-08-06 05:00] LABS: BILIRUBIN,TOTAL 0.6 MG/DL (0.2-1.0); CALCIUM LEVEL 8.1 MG/DL (8.8-10.2); CREATININE FOR GFR 1.02 MG/DL (0.55-1.30); MAGNESIUM LEVEL 1.6 MG/DL (1.8-2.4); TOTAL PROTEIN 5.9 GM/DL (6.4-8.2)
[2020-08-06 11:12] LABS: CREATININE FOR GFR 0.97 MG/DL (0.55-1.30); GLOMERULAR FILTRATION RATE 58.2 (>32); POTASSIUM SERUM 4.2 MEQ/L (3.5-5.1)
[2020-08-06 13:01] LABS: BLOOD UREA NITROGEN 17 MG/DL (7-18); CREATININE FOR GFR 0.78 MG/DL (0.55-1.30); GLUCOSE, FASTING 88 MG/DL (70-100)
[2020-08-06 13:02] LABS: ALBUMIN 2.5 GM/DL (3.2-5.2); ALT/SGPT 22 U/L (12-78); BILIRUBIN,TOTAL 0.5 MG/DL (0.2-1.0); CALCIUM LEVEL 7.7 MG/DL (8.8-10.2); CARBON DIOXIDE LEVEL 24 MEQ/L (21-32); CHLORIDE LEVEL 100 MEQ/L (98-107); GLOMERULAR FILTRATION RATE > 60.0 (>32); MAGNESIUM LEVEL 1.6 MG/DL (1.8-2.4); POTASSIUM SERUM 4.2 MEQ/L (3.5-5.1); SODIUM LEVEL 130 MEQ/L (136-145)
== END 2020-05-24 11:42 | DRG 481 ==
LOC: M MSPAV 16:00
PROVIDERS: ADMIT Internal Medicine; ATTEND Internal Medicine
PROC: 0QS604Z Reposition Right Upper Femur with Internal Fixation Device, Open Approach (ICD-10-PCS; principal; 2020-05-14)
PROC: 30233N1 Transfusion of Nonautologous Red Blood Cells into Peripheral Vein, Percutaneous Approach (ICD-10-PCS; 2020-05-15)
DX: S72.141A Displaced intertrochanteric fracture of right femur, initial encounter for closed fracture (principal); D62 Acute posthemorrhagic anemia; E87.1 Hypo-osmolality and hyponatremia; S22.42XA Multiple fractures of ribs, left side, initial encounter for closed fracture; I10 Essential (primary) hypertension; E78.5 Hyperlipidemia, unspecified; I48.91 Unspecified atrial fibrillation; E03.9 Hypothyroidism, unspecified; R33.9 Retention of urine, unspecified; W18.30XA Fall on same level, unspecified, initial encounter; Y92.238 Other place in hospital as the place of occurrence of the external cause; Z79.899 Other long term (current) drug therapy; Z88.1 Allergy status to other antibiotic agents; Z88.8 Allergy status to other drugs, medicaments and biological substances

== ENCOUNTER → 2020-06-19 | Outpatient (REF) | payer MEDICARE ==
[~2020-06-19] MED LIST changes: +ACET-683 PO; +ALEN70TA74 PO; +D31000TA2 PO; +DULC10SU2 PR; +ENEMENE PR; +LASI20TA3 PO; -LIDOCAINE 1% MDV 20ML VIAL As Ordered ONE; +MOM30SS PO; +NITR100C2 PO; +QC A650T3 PO; +VITMTA PO
[2020-06-19 13:56] LABS: HEMATOCRIT 34.6 % (36.0-47.0); HEMOGLOBIN 10.9 g/dl (12.0-15.5); MEAN CORPUSCULAR HEMOGLOBIN 29.8 pg (27.0-33.0); MEAN CORPUSCULAR HGB CONC 31.5 g/dl (32.0-36.5); MEAN CORPUSCULAR VOLUME 94.5 fl (80.0-96.0); PLATELET COUNT, AUTOMATED 248 10^3/uL (150-450); RED BLOOD COUNT 3.66 10^6/uL (4.00-5.40); WHITE BLOOD COUNT 7.1 10^3/uL (4.0-10.0)
[2020-06-19 14:22] LABS: CALCIUM LEVEL 9.2 MG/DL (8.8-10.2); CREATININE FOR GFR 1.19 MG/DL (0.55-1.30); GLOMERULAR FILTRATION RATE 46.1 (>32)
== END ==
LOC: SKLAB7 13:12
PROVIDERS: ATTEND Internal Medicine
DX: K92.1 Melena (principal)

== ENCOUNTER 2020-06-28 08:49 | Inpatient (IN) | payer MEDICARE ==
[~2020-06-28] VITALS: Ht 162.6 cm; Wt 70.6 kg
[~2020-06-28 08:49] MED LIST changes: -ACET-683 PO; -DULC10SU2 PR; -ENEMENE PR; -MOM30SS PO; -QC A650T3 PO; -VITMTA PO
[2020-06-28] MEDS: ACETAMINOPHEN 500 MG TAB PO SCH ×4 (09:00→20:15)
--- NOTE | 2020-06-28 10:02 | REPVR ---
PROCEDURE INFORMATION: Exam: XR Lumbosacral Spine, 4 or 5 Views Exam date and time: 06/28/2020 9:06 AM Age: 84 years old Clinical indication: Injury or trauma; Fall; Initial encounter; Sprain or strain, lumbar ligaments TECHNIQUE: Imaging protocol: XR of the lumbosacral spine, 4 or 5 views. COMPARISON: MRI-Spine, L.S. without con 05/18/2020 3:23 PM FINDINGS: Vertebrae: Facet arthritis. Degenerative hypertrophic formation of lower lumbar spine. Minimal anterior subluxation L4 on L5 with wedge compression deformity of L4. Increased bone density/sclerosis of inferior compressed L4. This may reflect interval healing process and the compression extent is grossly similar compared to the prior MRI of 05/18/2020. Sacrum/coccyx: Increasing density of the upper sacrum more especially in the midline and right of midline which is most likely consistent with insufficiency fractures. Other bones/joints: Hardware proximal right femur. Soft tissues: Unremarkable. Intraperitoneal space: Surgical clips right upper quadrant. IMPRESSION: 1. Wedge compression deformity of L4 grossly similar in configuration to the previous MRI. 2. Degenerative changes lower lumbar spine with facet arthritis. 3. Insufficiency areas of fracture of the upper sacrum. Electronically signed by: Tanya Bedoya On 06/28/2020 10:02:32 AM
--- NOTE | 2020-06-28 10:04 | REPVR ---
PROCEDURE INFORMATION: Exam: XR Right Hip with Pelvis when Performed Exam date and time: 06/28/2020 9:06 AM Age: 84 years old Clinical indication: Injury or trauma; Fall; Sprain or strain; Right; Hip TECHNIQUE: Imaging protocol: XR Right hip with pelvis when performed. Views: 2 or 3 views. COMPARISON: CR Hip, Ap,Lat RIGHT 05/12/2020 12:15 PM FINDINGS: Bones/joints: Intramedullary jama and nail immobilization of subacute fracture of the proximal right femur with similar positioning and displacement of lesser trochanter fragment. Osteopenia. Right hip joint space narrowing. Degenerative changes of lower lumbar spine. Areas of increased sclerosis of the upper sacrum. Soft tissues: Unremarkable. Vasculature: Soft tissue vascular calcification. IMPRESSION: 1. Hardware positioning subacute fracture proximal right femur. 2. Narrowing right hip joint. Electronically signed by: Tanya Bedoya On 06/28/2020 10:04:39 AM
[2020-06-28] MEDS ORDERED: QC A650T3 PO (10:21)
[2020-06-28] MEDS ORDERED: VITMTA PO (10:21)
[2020-06-28] MEDS ORDERED: ENEMENE PR (10:21)
[2020-06-28] MEDS ORDERED: DULC10SU2 PR (10:21)
[2020-06-28] MEDS ORDERED: MOM30SS PO (10:21)
[2020-06-28] MEDS ORDERED: traMADol 50 MG TAB PO ONE (10:45)
--- NOTE | 2020-06-28 14:04 | HPEPDOC ---
[facility] Medical History & Physical Date of Admission Jun 28, 2020 Date of Service: Jun 28, 2020 History and Physical CHIEF COMPLAINT: Recurrent Falls at [facility]/ New Sacral Fracture HISTORY OF PRESENTING ILLNESS: 84 y/o Female [facility]p [facility] while getting up in the dining room, with intractable pain 10/10 in the sacrum overnight, prompting ER evaluation today. Xray shows sacral fracture. She denies any prodromal symptoms such as lightheadedness, dizziness, sob, chest pain, pressure, tightness, cough, fever, chills, nausea, vomiting, brbpr, melena, black tarry stools, hematemesis, dysuria, urgency, frequency, or flank pain. She denies any changes in weight, insomnia, polyphagia, polyuria, changes in appetite, headache, sore throat, tinnitus, but admits to "losing her balance a lot," and having b/l LE weakness. Per daughter at the bedside, pt often forgets to ask for help when she tries to ambulate, and falls as a result. Hospitalist was called to admit for intractable pain. PAST MEDICAL/ SURGICAL HISTORY: Atrial fibrillation CKD 3 Chronic hypertension Dyslipidemia Anxiety/depression GERD Hypothyroidism Right breast cancer status post right lumpectomy on adjuvant anastrozole. Status post bilateral knee replacement. Status post laparoscopic cholecystectomy. Status post appendectomy Status post tonsillectomy and adenoidectomy L4 compression fracture b/l sacral insufficiency fracture SOCIAL HISTORY: She is a former smoker. She doesn't drink alcohol. She doesn't use recreational drugs FAMILY HISTORY: n/a ALLERGIES: Please see below. REVIEW OF SYSTEMS: 12 point systems review obtained and negative aside from (+) findings on HPI PHYSICAL EXAMINATION: VITALS: see below HEENT: NC, AT. EOMI, no scleral icterus. No pharyngeal erythema, mucous m embranes moist. CV: RRR, normal S1 and S2. Lungs: CTAB with full breath sounds. No wheezes, crackles, or rhonchi. Abd:Bowel sounds present, abdomen is soft, NT, ND Ext: no edema MUSCULOSKELETAL: limited ROM flexion extension due to pain. tenderness L5-S1. unable to assess gait due to pain LABORATORY DATA/IMAGING STUDIES: see below ASSESSMENT AND PLAN: 84 F w recurrent falls admitted as an inpatient for two midnights for: Intractable Pain s/p fall Recurrent Falls Sacral Fracture Recent Hip Fracture s/p Left hip ORIF chronic Atrial fibrillation CKD 3 Chronic hypertension Dyslipidemia Anxiety/depression GERD Hypothyroidism Right breast cancer status post right lumpectomy on adjuvant anastrozole. Status post bilateral knee replacement. Status post laparoscopic cholecystectomy. Status post appendectomy Status post tonsillectomy and adenoidectomy L4 compression fracture PLAN: due to intractable pain, pt is admitted for pain control and will be on scheduled tylenol, as needed tramadol 50mg q4hprn, which will be adjusted accordingly depending on side effects and efficacy. Assisted ambulation only, fall precautions, and ARU screen. We will check orthostatics, and CT head to rule out cerebellar CVA. Resume all home meds. DVT prophylaxis with compression stockings. Vital Signs Vital Signs Date Time Temp Pulse Resp B/P (MAP) Pulse Ox O2 Delivery O2 Flow Rate FiO2 06/28/20 09:06 96.2 79 15 149/83 (105) 100 Room Air Home Medications Scheduled Acetaminophen (Acetaminophen 8 Hour) 650 Mg Tablet.er, 650 MG PO BID Alendronate Sodium (Alendronate Sodium) 70 Mg Tablet, 70 MG PO QWEEK MONDAYS Atorvastatin Calcium (Atorvastatin Calcium) 10 Mg Tablet, 10 MG PO QHS Bupropion HCl (Bupropion Xl) 300 Mg Tab.er.24h, 300 MG PO DAILY Cholecalciferol (Vitamin D3) (Vitamin D3) 1,000 Unit Tablet, 1,000 UNITS PO QHS Escitalopram Oxalate (Escitalopram Oxalate) 10 Mg Tablet, 10 MG PO DAILY Irbesartan (Irbesartan) 150 Mg Tablet, 150 MG PO QHS Letrozole (Letrozole) 2.5 Mg Tablet, 2.5 MG PO DAILY Levothyroxine Sodium (Levothyroxine Sodium) 125 Mcg Tablet, 125 MCG PO DAILY Multivitamins (Thera M Plus Tablet) 1 Each Tablet, 1 TAB PO DAILY Omeprazole (Omeprazole) 40 Mg Capsule.dr, 40 MG PO DAILY Pramipexole Di-HCl (Mirapex) 0.5 Mg Tablet, 0.5 MG PO QHS Propranolol HCl (Propranolol HCl) 40 Mg Tablet, 40 MG PO BID Rivaroxaban (Xarelto) 15 Mg Tablet, 15 MG PO QPM Scheduled PRN Acetaminophen (Acetaminophen) 325 Mg Tablet, 650 MG PO Q4H PRN for PAIN Bisacodyl (Dulcolax) 10 Mg Supp.rect, 10 MG AR DAILY PRN for CONSTIPATION Milk Of Magnesia (Milk of Magnesia) 2,400 Mg/10 Ml Oral.susp, 10 ML PO DAILY PRN for CONSTIPATION Sodium Phosphate,[place]-Dibasic (Enema) 133 Ml Enema, 1 YAKOV AR DAILY PRN for CONSTIPATION Allergies Coded Allergies: amoxicillin (Verified Allergy, Unknown, 11/22/19) meperidine (Verified Allergy, Unknown, 11/22/19) A-FIB/CHADSVASC A-FIB History Current/History of A-Fib/PAF?: Yes Current PO Anticoag Therapy: No Age/Risk Factor Scoring CHADSVASC: CHADSVASC Response (Comments) Value Age Risk Factor Age >/= 75 years old 2 Gender Risk Factor Female 1 Hx of CHF No 0 Hx of HTN Yes 1 Hx of Stroke/TIA/or VTE No 0 Hx of Diabetes No 0 Hx of Vascular Disease No 0 Total 4 Treatment Treatment ordered: NONE Reason Anticoagulant not given: Other Other reason anticoagulant not: recurrent falls MIKKI LORENZO MD Jun 28, 2020 13:58
[2020-06-28] MEDS ORDERED: MOM 30ML SUSPENSION UDC PO PRN (14:15)
[2020-06-28] MEDS ORDERED: BISACODYL 10 MG SUPP PR PRN (14:15)
--- NOTE | 2020-06-28 14:42 | REPVR ---
PROCEDURE INFORMATION: Exam: CT Head Without Contrast Exam date and time: 06/28/2020 2:27 PM Age: 84 years old Clinical indication: Injury or trauma; Fall; Blunt trauma (contusions or hematomas); Additional info: Recurrent falls/ afib R/O cerebellar CVA TECHNIQUE: Imaging protocol: Computed tomography of the head without contrast. Radiation optimization: All CT scans at this facility use at least one of these dose optimization techniques: automated exposure control; mA and/or kV adjustment per patient size (includes targeted exams where dose is matched to clinical indication); or iterative reconstruction. COMPARISON: CT Head without contrast 11/26/2019 6:36 PM FINDINGS: Brain: There is no acute intracranial hemorrhage, cerebral edema, or midline shift. Chronic microvascular ischemic changes are seen in the periventricular white matter. Age-related cerebral and cerebellar volume loss is present. Cerebral ventricles: Moderate ex vacuo dilation of the lateral and third ventricles is noted. Bones/joints: No acute fracture. Paranasal sinuses: There is no acute sinusitis. Mastoid air cells: The mastoid air cells are clear. Orbits: The included orbital structures are unremarkable. Vasculature: Atherosclerotic calcifications are seen involving the cavernous carotid arteries. Soft tissues: Unremarkable. IMPRESSION: 1. No acute intracranial abnormality. 2. Atrophy and chronic deep white matter ischemic changes. Electronically signed by: George Stein On 06/28/2020 14:41:32 PM
[2020-06-28] MEDS ORDERED: traMADol 50 MG TAB PO PRN (15:00)
[2020-06-28 15:04] VITALS: BP 136/86
[2020-06-28 16:00] VITALS: BP_SYST 120; BP_SYST 135; BP_SYST 89; BP_DIAS 57; BP_DIAS 84; BP_DIAS 87
[2020-06-28] MEDS ORDERED: NS 1,000 ML IV SCH (19:15)
[2020-06-28 20:00] VITALS: BP_SYST 107; BP_SYST 124; BP_SYST 128; BP_DIAS 68; BP_DIAS 75
[2020-06-28] MEDS: ATORVASTATIN 10 MG TAB PO SCH (20:14)
[2020-06-28] MEDS: PRAMIPEXOLE 0.25 MG TAB PO SCH (20:14)
[2020-06-28] MEDS: VITAMIN D 1,000 INTERNATIONAL UNITS TABLET PO SCH (20:14)
[2020-06-28] MEDS: IRBESARTAN 150MG TAB PO SCH (20:15)
[2020-06-28] MEDS: PROPRANOLOL 20 MG TAB PO SCH (20:15)
[2020-06-28 22:00] VITALS: BP 136/84
[2020-06-29] VITALS: BP_SYST 122; BP_SYST 129; BP_SYST 134; BP_DIAS 75; BP_DIAS 80; BP_DIAS 84
[2020-06-29] MEDS: LEVOTHYROXINE 125MCG TABLET (0.125MG) PO SCH (05:30)
[2020-06-29 06:00] VITALS: BP 128/84
[2020-06-29 07:03] LABS: HEMATOCRIT 29.1 % (36.0-47.0); HEMOGLOBIN 9.3 g/dl (12.0-15.5); MEAN CORPUSCULAR HEMOGLOBIN 29.7 pg (27.0-33.0); PLATELET COUNT, AUTOMATED 212 10^3/uL (150-450); RED BLOOD COUNT 3.13 10^6/uL (4.00-5.40); WHITE BLOOD COUNT 4.8 10^3/uL (4.0-10.0)
[2020-06-29 07:42] LABS: CALCIUM LEVEL 8.4 MG/DL (8.8-10.2); CREATININE FOR GFR 0.95 MG/DL (0.55-1.30); GLOMERULAR FILTRATION RATE 59.8 (>32); POTASSIUM SERUM 4.2 MEQ/L (3.5-5.1); THYROID STIMULATING HORMONE 4.12 uIU/ML (0.358-3.740)
[2020-06-29] MEDS: MULTIVITAMINS/MINERALS THERAP 1 TAB PO SCH (09:57)
[2020-06-29] MEDS: buPROPion **XL** TABLET 150MG (WELLBUTRIN XL) PO SCH (09:57)
[2020-06-29] MEDS: OMEPRAZOLE 20 MG CAP PO SCH (09:57)
[2020-06-29] MEDS: LETROZOLE 2.5 MG TAB PO SCH (09:57)
[2020-06-29] MEDS: ESCITALOPRAM OXALATE 10 MG TAB (LEXAPRO) PO SCH (09:57)
[2020-06-29] MEDS: ACETAMINOPHEN 500 MG TAB PO SCH ×4 (09:58→21:06)
[2020-06-29] MEDS: PROPRANOLOL 20 MG TAB PO SCH ×2 (10:01→21:00)
[2020-06-29 10:44] LABS: CORTISOL AM 20.5 UG/DL (4.3-22.4)
[2020-06-29 14:00] VITALS: BP 113/75
[2020-06-29] MEDS ORDERED: oxyCODONE 5MG TAB PO PRN (16:15)
[2020-06-29] MEDS ORDERED: SENOKOT S TAB PO PRN (16:45)
[2020-06-29] MEDS ORDERED: IBUPROFEN 200MG TAB PO PRN (16:45)
[2020-06-29] MEDS ORDERED: MIRALAX *UNIT DOSE* 17GM PACKET PO PRN (16:45)
[2020-06-29] MEDS: IBUPROFEN 200MG TAB PO SCH (18:33)
[2020-06-29] MEDS: VITAMIN D 1,000 INTERNATIONAL UNITS TABLET PO SCH (21:05)
[2020-06-29] MEDS: ATORVASTATIN 10 MG TAB PO SCH (21:05)
[2020-06-29] MEDS: PRAMIPEXOLE 0.25 MG TAB PO SCH (21:05)
[2020-06-29] MEDS: oxyCODONE 10 MG CR TAB PO SCH (21:07)
[2020-06-29] MEDS: IRBESARTAN 150MG TAB PO SCH (21:50)
[2020-06-29 22:00] VITALS: BP 111/73
[2020-06-30 06:00] VITALS: BP 114/77
[2020-06-30] MEDS: LEVOTHYROXINE 125MCG TABLET (0.125MG) PO SCH (06:09)
[2020-06-30 07:06] LABS: CALCIUM LEVEL 8.5 MG/DL (8.8-10.2); CREATININE FOR GFR 1.08 MG/DL (0.55-1.30); GLOMERULAR FILTRATION RATE 51.6 (>32); POTASSIUM SERUM 4.1 MEQ/L (3.5-5.1)
[2020-06-30] MEDS: PROPRANOLOL 20 MG TAB PO SCH ×2 (09:00→20:19)
[2020-06-30] MEDS: OMEPRAZOLE 20 MG CAP PO SCH (09:18)
[2020-06-30] MEDS: IBUPROFEN 200MG TAB PO SCH ×3 (09:19→17:57)
[2020-06-30] MEDS: MULTIVITAMINS/MINERALS THERAP 1 TAB PO SCH (09:19)
[2020-06-30] MEDS: ESCITALOPRAM OXALATE 10 MG TAB (LEXAPRO) PO SCH (09:20)
[2020-06-30] MEDS: LETROZOLE 2.5 MG TAB PO SCH (09:20)
[2020-06-30] MEDS: buPROPion **XL** TABLET 150MG (WELLBUTRIN XL) PO SCH (09:20)
[2020-06-30] MEDS: ACETAMINOPHEN 500 MG TAB PO SCH ×4 (09:20→20:21)
[2020-06-30] MEDS: oxyCODONE 10 MG CR TAB PO SCH ×2 (09:22→20:22)
--- NOTE | 2020-06-30 09:27 | IPN ---
DATE: 06/29/2020 SUBJECTIVE: Patient seen and examined at the bedside. Chart has been reviewed. Patient still complains of 3/10 pain when she is not moving on the bed. Per nursing, pain increases when she tries to move around and tries to sit up. The patient's pain is across the pelvis and the back. No radiation down the legs. Afebrile. No dysuria, urgency, frequency, fever, chills, or flank pain. OBJECTIVE: PHYSICAL EXAMINATION: VITAL SIGNS: Temperature 97.7, pulse 89, respiratory rate 18, blood pressure 128/84, 96% on room air. GENERAL: Awake, alert, oriented to herself. Confused to place and time. Answering questions appropriately. No jugular venous distention (JVD) or thyromegaly. Dry mucous membranes. LUNGS: Clear to auscultation. No wheezing, rales, or rhonchi. HEART: S1, S2, irregularly irregular. ABDOMEN: Soft, nontender, nondistended. Positive bowel sounds. EXTREMITIES: No cyanosis or clubbing. LABORATORY DATA: June 29 white count 4.8, hemoglobin 9, hematocrit 29, platelet count 212. Sodium 135, potassium 4, chloride 103, bicarbonate 27, BUN 15, creatinine 0.95, glucose 84. TSH 4.1. Morning cortisol 20. ASSESSMENT AND PLAN: This is an 84-year-old female at [facility] when she had fallen and had a sacral fracture. Review of her x-rays by orthopedic surgeon, Dr. Cast, had been done yesterday with recommendations to continue activity as tolerated and pain control. IMPRESSION: 1. Recurrent fall with sacral fracture. Patient is currently on Tylenol four times a day, as-needed tramadol every 4 hours. Physical therapy (PT)/occupational therapy (OT) have been consulted. Deep venous thrombosis (DVT) with compression stockings. 2. Chronic atrial fibrillation. Patient's anticoagulation has been held secondary to recurrent falls and increased risk of intracranial hemorrhage. At this time patient, according to the daughter, does not have the ability to ask for help or assistance prior to ambulating. Will continue to monitor during the hospital stay. If patient is able to ask for help and is assisted, then we will continue with anticoagulation. For now will hold due to recurrent falls and risk of intracranial hemorrhage. 3. Chronic kidney disease, stage III, currently at baseline creatinine. 4. Hypertension. Patient had low blood pressure yesterday. Appears to have a normal cortisol level this morning. 5. Dyslipidemia, chronic. 6. Anxiety and depression, chronic. 7. Hypothyroidism, on Synthroid. Awaiting thyroid stimulating hormone (TSH) this morning. 8. History of right breast cancer, status post right lumpectomy, on anastrozole. MTDD
[2020-06-30] MEDS ORDERED: oxyCODONE 5MG TAB PO PRN (10:30)
--- NOTE | 2020-06-30 13:08 | IPNPDOC ---
Date Seen The patient was seen on 06/30/20. Progress Note SUBJECTIVE: Patient seen and examined at the bedside. Per nursing. Patient's pain is controlled. She has been evaluated every 4 hours to see if she would like some pain medications. Patient is sleeping on her left side. This morning, awakened easily and says her pain is 7 out of 10, but would like to have some breakfast prior to taking pain medications. She is currently on oxycodone every 6 hours as needed. She has been started on OxyContin 10 mg twice a day starting last evening and was able to work with physical therapy and nursing at the bedside plane of worsening pain 7-10 out of 10 on a pain scale when she begins to move around, especially bearing weight and moving around in bed to try to get out. She otherwise has had no falls, syncope or increased lethargy or drowsiness. She has not missed any of her meals because of the pain medications causing any signs of drowsiness or confusion. Patient continues to complain of her knee after her fall. It appears to be stable without any signs of effusion. It has been elevated with ice ordered for comfort OBJECTIVE: PHYSICAL EXAMINATION: VITAL SIGNS: see below GENERAL: Awake, alert, oriented to herself. Confused to place and time. Answering questions appropriately. No jugular venous distention (JVD) or thyromegaly. Dry mucous membranes. LUNGS: Clear to auscultation. No wheezing, rales, or rhonchi. HEART: S1, S2, irregularly irregular. ABDOMEN: Soft, nontender, nondistended. Positive bowel sounds. EXTREMITIES: No cyanosis or clubbing. LABORATORY DATA: see below ASSESSMENT AND PLAN: This is an 84-year-old female at [facility] when she had fallen and had a sacral fracture. Review of her x-rays by orthopedic surgeon, Dr. Cast, had been done in the ER with recommendations to continue activity as tolerated and pain control. ice and elevation of affected extremities. IMPRESSION: 1. Recurrent fall with sacral fracture. Patient is currently on Tylenol four times a day. She's had no relief with tramadol and has been placed on OxyContin 10 twice a day as well as oxycodone 5 mg every 6 hourly as needed. Patient has been encouraged to take advantage of her when necessary medications. Nursing has been instructed to assess the patient every 4 hours due to worsening pain. Her oxycodone has been changed to every 4 hourly as needed to monitor for over sedation or altered mental status. Physical therapy (PT)/occupational therapy (OT) have been consulted. Deep venous thrombosis (DVT)with compression stockings. 2. Chronic atrial fibrillation. , Rate controlled. Patient continues to be unst able on her feet and at risk of intracranial hemorrhage with any type of fall despite being on care of you and bed alarm. Patient often not tries to get up and ambulate by herself and would be at risk of falling and causing unintended injury. Her anticoagulant. Will continue to be held until her balance is improved. She will be at risk of CVA. The first anticoagulant, but the risk of falling and hemorrhage, infarct waist of risk of CVA at this time. We will resume her anticoagulant once her balance is back to baseline. She has been encouraged to ambulate only with assistance and to call for help. When she tries to do something. 3. Chronic kidney disease, stage III, currently at baseline creatinine. 4. Hypertension. Monitored with standard of care. Vital signs holding parameters have been placed on her blood pressure medications 5. Dyslipidemia, chronic. 6. Anxiety and depression, chronic. 7. Hypothyroidism, on Synthroid. 8. History of right breast cancer, status post right lumpectomy, on anastrozole. Disposition 1-2 days pending. Patient being control as well as physical therapy clearance to go back to send [facility]. VS, I&O, 24H, Fishbone Vital Signs/I&O Vital Signs Date Time Temp Pulse Resp B/P (MAP) Pulse Ox O2 Delivery O2 Flow Rate FiO2 06/30/20 09:22 16 06/30/20 06:00 98.2 80 114/77 (89) 98 Room Air I&O- Last 24 Hours up to 6 AM 06/30/20 06:00 Intake Total 1691 ml Output Total 0 ml Balance 1691 ml Laboratory Data 24H LABS Laboratory Tests 2 06/30/20 06:21: Anion Gap 6L, Glomerular Filtration Rate 51.6, Calcium Level 8.5L CBC/BMP Laboratory Tests 06/30/20 06:21 MIKKI LORENZO MD Jun 30, 2020 13:08
[2020-06-30 14:00] VITALS: BP 115/76
[2020-06-30] MEDS: ATORVASTATIN 10 MG TAB PO SCH (20:19)
[2020-06-30] MEDS: PRAMIPEXOLE 0.25 MG TAB PO SCH (20:19)
[2020-06-30] MEDS: VITAMIN D 1,000 INTERNATIONAL UNITS TABLET PO SCH (20:19)
[2020-06-30] MEDS: IRBESARTAN 150MG TAB PO SCH (20:20)
[2020-06-30 22:00] VITALS: BP 131/83
[2020-07-01] MEDS: LEVOTHYROXINE 125MCG TABLET (0.125MG) PO SCH (05:26)
[2020-07-01 06:00] VITALS: BP 122/69
[2020-07-01 07:03] LABS: CALCIUM LEVEL 8.8 MG/DL (8.8-10.2); CREATININE FOR GFR 1.09 MG/DL (0.55-1.30); POTASSIUM SERUM 4.1 MEQ/L (3.5-5.1)
[2020-07-01] MEDS: ACETAMINOPHEN 500 MG TAB PO SCH ×4 (08:28→21:21)
[2020-07-01] MEDS: MULTIVITAMINS/MINERALS THERAP 1 TAB PO SCH (08:28)
[2020-07-01] MEDS: ESCITALOPRAM OXALATE 10 MG TAB (LEXAPRO) PO SCH (08:28)
[2020-07-01] MEDS: IBUPROFEN 200MG TAB PO SCH ×3 (08:28→17:01)
[2020-07-01] MEDS: OMEPRAZOLE 20 MG CAP PO SCH (08:28)
[2020-07-01] MEDS: PROPRANOLOL 20 MG TAB PO SCH ×2 (08:28→21:21)
[2020-07-01] MEDS: oxyCODONE 10 MG CR TAB PO SCH ×2 (08:29→21:21)
[2020-07-01] MEDS: LETROZOLE 2.5 MG TAB PO SCH (08:29)
[2020-07-01] MEDS: buPROPion **XL** TABLET 150MG (WELLBUTRIN XL) PO SCH (08:46)
--- NOTE | 2020-07-01 10:40 | IPNPDOC ---
Date Seen The patient was seen on 07/01/20. Progress Note SUBJECTIVE: Patient is seen and examined at the bedside. Chart has been reviewed. Son-in-law is at the bedside trying to calm her down. She appears to be slightly agitated about going to the operating room and having her toe amputated on the left foot. No issues overnight. No fever or chills. Currently on broad-spectrum antibiotics IV.. She denies any pain at the foot. No purulent discharge. Overnigh OBJECTIVE: PHYSICAL EXAMINATION: VITALS : SEE BELOW GEN: Patient is pleasant, slightly anxious this morning, cooperative, no respiratory distress. No use of respiratory accessory muscles HEENT:. Pupils are equal, round, and reactive to light. Extraocular movements are intact. No nystagmus appreciated. Sclera are nonicteric. no jaundice. Conjunctiva without injection. Nose midline. Nasal turbinates without bogginess. No facial asymmetry. Pharynx pink and moist, no cobblestoning. Neck supple, trachea midline. No lymphadenopathy or thyromegaly appreciated. . HEART: Regular rate and rhythm, +S1, +S2. Nondisplaced point of maximal impulse no pericardial rub LUNGS: Clear to auscultation bilaterally. No wheezes, rales, or rhonchi. Breathing appears symmetric and easy. Patient is speaking in full sentences. No accessory muscle use. ABD: Round, soft, non-tender, non-distended. +Bowel sounds throughout. No rebound or guarding. No costovertebral angle tenderness. EXT: Pulses 2+ bilaterally dorsalis pedis and radial. (+) b/l 1+ pitting edema. left 4-5 partial metatarsal amputation. left medial hallux ulcer with serous drainage no purulence some erythema no induration nontender. SKIN: [place], dry, warm. No rashes. LABORATORY DATA: see below ASSESSMENT AND PLAN: 86 y/o F with chronically deformed left foot, Dementia, bilateral breast cancer, cared for by her daughter and son-in-law, but lives in assisted living housing, presents for amputation of the left hallux due to nonhealing ulcer with failed outpatient antibiotics and debridement. Patient was followed at the wound care center by Dr. Victoria in the past,and had left partial incisional metatarsals of the 4-5 digits in 08/[address] Reid. She was seen in her digital media designer's office today, and referred to [facility] for admission for amputation of the left hallux. She denies fever, chills, pain, purulent discharge,or worsening edema. In the ER, she was afebrile, normal wbc and esr, but 3.7 crp, given iv vanco and iv zosyn with plans for amputation on Friday by Dr. Reid 1.Left hallux osteomyelitis- currently nothing by mouth and IV fluids. Patient is to have amputation of the left hallux due to osteomyelitis and nonhealing wound. [facility], Dr. Reid has been consult for amputation and postoperative management. Patient has been off of antiplatelet therapy since hospital admission. She has been on no anticoagulants and has been On hypoglycemic protocol due to history of diabetes. Consent has been obtained from the patient's son in law and daughter. Pain control, bowel regimen of been provided. Activity per digital media designer 2.Chronic peripheral neuropathy-has orthotic shoes, but increased risk of injury due to numbness. 3. Preoperative Medical patient is medically optimized to proceed to the o perating room today. We have held her aspirin since admission. She currently denies any acute ischemic complaints such as chest pain, pressure, tightness, lightheadedness or dizziness. She has had no history of coronary artery disease, AK, congestive heart failure to require further evaluation. 4. Hyperkalemia, resolved- received calcium gluconate, kayexalate on admission 5. Hypertension-resumed home meds with holding parameters 6. Hypothyroidism-on synthroid 7. Chronic Dementia/memory patient is having difficulty remaining in the hospital without being agitated and distressed. We have spoken about her high risk of agitation and wanting to sign out AGAINST MEDICAL ADVICE with the patient's family on hospital admission. We are willing to make an exception to the visiting hours of 2-6 PM and allow the family to stay with her 21/04 if needed. We are trying to avoid any sedatives or hypnotics. She remains cooperative, not belligerent with staff and has not been combative if this were to happen. Family has been permitted to stay with the patient while she is in the hospital to avoid chemical restraints and mechanical restraints. 8. Anxiety/Depression, chronic-no suicidal ideation 9. GERD/HH-on PPI 10. History of breast cancer. right mastectomy left lumpectomy with radiation and left mastectomy due to local recurrence, on surveillance at the [facility] 11. H/O TIA-due to planned left hallux amputation, hold ASA. 12. Obesity BMI 34.9 MONICA. CPAP-complicating care code status: DNR DNI. VS, I&O, 24H, Fishbone Vital Signs/I&O Vital Signs Date Time Temp Pulse Resp B/P (MAP) Pulse Ox O2 Delivery O2 Flow Rate FiO2 07/01/20 08:29 18 07/01/20 08:28 70 122/69 07/01/20 06:00 98.0 99 Room Air I&O- Last 24 Hours up to 6 AM 07/01/20 06:00 Intake Total 1776 ml Output Total 0 ml Balance 1776 ml Laboratory Data 24H LABS Laboratory Tests 2 07/01/20 06:07: Anion Gap 8, Glomerular Filtration Rate 51.0, Calcium Level 8.8 CBC/BMP Laboratory Tests 07/01/20 06:07 MIKKI LORENZO MD Jul 01, 2020 10:40
--- NOTE | 2020-07-01 10:49 | IPNPDOC ---
Date Seen The patient was seen on 07/01/20. Progress Note SUBJECTIVE: Patient was seen and examined at the bedside chart it's been reviewed. Patient was still sleeping, lying on her left side with her knees on one pillow. She was easily arousable and says that her pain is 2 out of 10 currently and did not want any changes in her pain medications. She does complain of sacral and lower back pain which worsens to 6 out of 10 on a pain scale when she tries to move around, especially when she tries to get up. She has been started on OxyContin 10 mg twice a day and did not appear to be affected with side effects of sedation. Altered mental status. She was able to sit up and eat her meals without difficulty and able to be appropriate with staff on routine checks. She is cooperative with physical therapy and currently on every 4 hours as needed pain medications which she wants to keep as is and does not want change. OBJECTIVE: PHYSICAL EXAMINATION: VITAL SIGNS: see below GENERAL: Asleep but arousable, able to state her name. Face is symmetric C onfused to place and time. Answering questions appropriately.. No conversational dyspnea, or use of respiratory accessory muscles H EENT: No jugular venous distention (JVD) or thyromegaly. Dry mucous membranes. . Tongue is midline. No carotid bruit. No stridor LUNGS: Clear to auscultation. No wheezing, rales, or rhonchi. No kyphosis. No use of respiratory accessory muscles. No adventitious breath sounds HEART: S1, S2, irregularly irregular. Nondisplaced point of maximal impulse ABDOMEN: Soft, nontender, nondistended. Positive bowel sounds. , No rebound or guarding. No hepatosplenomegaly. No abdominal bruit EXTREMITIES: No cyanosis or clubbing. Bilateral knees without effusion, erythema, postoperative changes on prior arthroplasty. Range of motion is limited by pain due to arthritis LABORATORY DATA: see below ASSESSMENT: This is an 84-year-old female at [facility] when she had fallen and had a sacral fracture. Review of her x-rays by orthopedic surgeon, Dr. Cast, had been done in the ER with recommendations to continue activity as tolerated and pain control. ice and elevation of affected extremities. 1. Recurrent fall with sacral fracture. 2. Chronic atrial fibrillation. , Rate controlled. 3. Chronic kidney disease, stage III, currently at baseline creatinine. 4. Hypertension. 5. Dyslipidemia, chronic. 6. Anxiety and depression, chronic. 7. Hypothyroidism, on Synthroid. 8. History of right breast cancer, status post right lumpectomy, on anastrozole. PLAN: Patient was admitted for pain control per orthopedic surgery. Activity as tolerated with fall precautions. Continue on all home medications. Patient is OxyContin 10 Twice a Day to Be Titrated According to Her Knee. Oxycodone As Needed Every 4 She Has Not Exhibited Any Metabolic Encephalopathy, Confusion, Respiratory Distress Is New Pain Medications. She Is on a Bowel Regimen As Well As Routine Tylenol at This Time, PT, OT consulted. Awaiting pain control. VS, I&O, 24H, Fishbone Vital Signs/I&O Vital Signs Date Time Temp Pulse Resp B/P (MAP) Pulse Ox O2 Delivery O2 Flow Rate FiO2 07/01/20 08:29 18 07/01/20 08:28 70 122/69 07/01/20 06:00 98.0 99 Room Air I&O- Last 24 Hours up to 6 AM 07/01/20 06:00 Intake Total 1776 ml Output Total 0 ml Balance 1776 ml Laboratory Data 24H LABS Laboratory Tests 2 07/01/20 06:07: Anion Gap 8, Glomerular Filtration Rate 51.0, Calcium Level 8.8 CBC/BMP Laboratory Tests 07/01/20 06:07 MIKKI LORENZO MD Jul 01, 2020 10:49
[2020-07-01 14:00] VITALS: BP 120/60
[2020-07-01] MEDS: PRAMIPEXOLE 0.25 MG TAB PO SCH (21:19)
[2020-07-01] MEDS: IRBESARTAN 150MG TAB PO SCH (21:20)
[2020-07-01] MEDS: ATORVASTATIN 10 MG TAB PO SCH (21:20)
[2020-07-01] MEDS: VITAMIN D 1,000 INTERNATIONAL UNITS TABLET PO SCH (21:21)
[2020-07-01 22:00] VITALS: BP 129/76
[2020-07-02] MEDS: LEVOTHYROXINE 125MCG TABLET (0.125MG) PO SCH (05:35)
[2020-07-02 06:00] VITALS: BP 131/80
[2020-07-02 06:23] LABS: CALCIUM LEVEL 8.8 MG/DL (8.8-10.2); CREATININE FOR GFR 1.24 MG/DL (0.55-1.30)
[2020-07-02] MEDS: PROPRANOLOL 20 MG TAB PO SCH ×2 (09:30→20:26)
[2020-07-02] MEDS: OMEPRAZOLE 20 MG CAP PO SCH (09:30)
[2020-07-02] MEDS: LETROZOLE 2.5 MG TAB PO SCH (09:30)
[2020-07-02] MEDS: MULTIVITAMINS/MINERALS THERAP 1 TAB PO SCH (09:31)
[2020-07-02] MEDS: IBUPROFEN 200MG TAB PO SCH ×3 (09:31→17:21)
[2020-07-02] MEDS: ACETAMINOPHEN 500 MG TAB PO SCH ×4 (09:31→20:15)
[2020-07-02] MEDS: ESCITALOPRAM OXALATE 10 MG TAB (LEXAPRO) PO SCH (09:31)
[2020-07-02] MEDS: buPROPion **XL** TABLET 150MG (WELLBUTRIN XL) PO SCH (09:43)
--- NOTE | 2020-07-02 10:24 | IPNPDOC ---
Date Seen The patient was seen on 07/02/20. Progress Note SUBJECTIVE: Patient was seen and examined in the [facility] chart is reviewed. Patient was assisted by 2 nurses from [facility] this morning. She appears to be in a better mood and much more alert than yesterday. Per nursing, half an hour after taking all her medications in the morning. Patient became very sedated. Therefore, we have discontinued her twice a day dosing of OxyContin starting today. Her pain appears to be significantly improved, and was able to stand and sit on the chair by the bedside. OBJECTIVE: PHYSICAL EXAMINATION: VITAL SIGNS: see below GENERAL: Answering questions appropriately., No respiratory distress No conversational dyspnea, or use of respiratory accessory muscles H EENT: No fascial asymmetry. Anicteric. No jaundice No jugular venous distention (JVD) or thyromegaly. Dry mucous membranes. . Tongue is midline. No carotid bruit. No stridor LUNGS: Clear to auscultation. No wheezing, rales, or rhonchi. No kyphosis. No use of respiratory accessory muscles. No adventitious breath sounds HEART: S1, S2, irregularly irregular. Nondisplaced point of maximal impulse ABDOMEN: Soft, nontender, nondistended. Positive bowel sounds. , No rebound or guarding. No hepatosplenomegaly. No abdominal bruit EXTREMITIES: No cyanosis or clubbing. Bilateral knees without effusion, erythema, postoperative changes on prior arthroplasty. Range of motion is limited by pain due to arthritis LABORATORY DATA: see below ASSESSMENT: This is an 84-year-old female at [facility] when she had fallen and had a sacral fracture. Review of her x-rays by orthopedic surgeon, Dr. Cast, had been done in the ER with recommendations to continue activity as tolerated and pain control. ice and elevation of affected extremities. 1. Recurrent fall with sacral fracture. Being evaluated by physical therapy. non-surgical per orthopedic surgery 2. Chronic atrial fibrillation. , Rate controlled. 3. Chronic kidney disease, stage III, currently at baseline creatinine. 4. Hypertension. 5. Dyslipidemia, chronic. 6. Anxiety and depression, chronic. 7. Hypothyroidism, on Synthroid. 8. History of right breast cancer, status post right lumpectomy, on anastrozole. 9. . Acute encephalopathy secondary to OxyContin causing sedation PLAN: Long-acting OxyContin has been discontinued due to increased sedation .Patient was admitted for pain control. Per orthopedic surgery. Activity as tolerated with fall precautions. Continue on all home medicationsOxycodone As Needed Every 4 hours as needed. She has been resumed on all her home medications. She appears to be improving and not requiring titration of her pain medications, risk of constipation and fecal impaction. She has been provided with a bowel regimen. She otherwise has no complaints of nausea, vomiting, abdominal pain and tolerating her diet. She is still activity as tolerated with assisted ambulation only due to increased risk of recurrent falls, anti-coagulation has been held due to risk of intracranial hemorrhage while she is physically unstable with gait instability and significant debility. VS, I&O, 24H, Fishbone Vital Signs/I&O Vital Signs Date Time Temp Pulse Resp B/P (MAP) Pulse Ox O2 Delivery O2 Flow Rate FiO2 07/02/20 09:30 74 131/80 07/02/20 06:00 97.9 20 98 Room Air I&O- Last 24 Hours up to 6 AM 07/02/20 06:00 Intake Total 1340 ml Output Total 0 ml Balance 1340 ml Laboratory Data 24H LABS Laboratory Tests 2 07/02/20 05:42: Anion Gap 7L, Glomerular Filtration Rate 44.0, Calcium Level 8.8 CBC/BMP Laboratory Tests 07/02/20 05:42 MIKKI LORENZO MD Jul 02, 2020 10:24
[2020-07-02 14:00] VITALS: BP 130/76
[2020-07-02] MEDS: PRAMIPEXOLE 0.25 MG TAB PO SCH (20:13)
[2020-07-02] MEDS: VITAMIN D 1,000 INTERNATIONAL UNITS TABLET PO SCH (20:14)
[2020-07-02] MEDS: ATORVASTATIN 10 MG TAB PO SCH (20:15)
[2020-07-02] MEDS: IRBESARTAN 150MG TAB PO SCH (20:26)
[2020-07-02 22:00] VITALS: BP 96/52
[2020-07-03] MEDS: LEVOTHYROXINE 125MCG TABLET (0.125MG) PO SCH (05:34)
[2020-07-03 06:00] VITALS: BP 143/83
[2020-07-03 06:31] LABS: CALCIUM LEVEL 8.8 MG/DL (8.8-10.2); CREATININE FOR GFR 1.28 MG/DL (0.55-1.30); GLOMERULAR FILTRATION RATE 42.3 (>32)
[2020-07-03] MEDS ORDERED: ACET-683 PO (07:55)
[2020-07-03] MEDS: LETROZOLE 2.5 MG TAB PO SCH (08:35)
[2020-07-03] MEDS: MULTIVITAMINS/MINERALS THERAP 1 TAB PO SCH (08:35)
[2020-07-03] MEDS: PROPRANOLOL 20 MG TAB PO SCH ×3 (08:38→21:25)
[2020-07-03] MEDS: ACETAMINOPHEN 500 MG TAB PO SCH ×4 (08:38→21:00)
[2020-07-03] MEDS: OMEPRAZOLE 20 MG CAP PO SCH (08:38)
[2020-07-03] MEDS: IBUPROFEN 200MG TAB PO SCH ×3 (08:38→17:30)
[2020-07-03] MEDS: ESCITALOPRAM OXALATE 10 MG TAB (LEXAPRO) PO SCH (08:39)
[2020-07-03] MEDS: buPROPion **XL** TABLET 150MG (WELLBUTRIN XL) PO SCH (08:39)
--- NOTE | 2020-07-03 09:35 | IPN ---
DATE: 06/29/2020 CHIEF COMPLAINT: 84-year-old female with mechanical fall. HISTORY OF PRESENT ILLNESS: This is an 84-year-old female who I previously fixed her right hip fracture with a long intramedullary nail. She is having a little bit of right lower extremity pain. Note to followup on the x-rays. X-rays of the full length femur demonstrate no acute abnormalities. Hardware appears well-fixed and free of complications. ASSESSMENT AND PLAN: This is an 84-year-old female with old sacral and lumbar spine insufficiency fractures as well as recently fixed right hip fracture. Can be weightbearing and activity as tolerated. Communicated this to Marianne, our nurse practitioner. ORACIO
--- NOTE | 2020-07-03 09:41 | CR ---
DATE OF CONSULTATION: 06/28/2020 CHIEF COMPLAINT: Fall and right knee pain. HISTORY OF PRESENT ILLNESS: This 84-year-old female had a mechanical fall. She is admitted to the hospitalist service under Dr. Ahumada. She consulted me for weightbearing orders. MEDICAL HISTORY: Per the hospitalist consult: 1. Atrial fibrillation. 2. Chronic kidney disease. 3. Chronic hypertension. 4. Dyslipidemia. 5. Anxiety. 6. Gastroesophageal reflux disease (GERD). 7. Hypothyroidism. 8. Status post breast cancer. 9. Bilateral knee replacement. 10. Laparoscopic cholecystectomy. 11. Appendectomy. 12. Tonsillectomy. 13. Adenoidectomy. 14. L4 compression fracture. 15. Bilateral sacral insufficiency fracture. For social history, family history, medications see the hospitalist consult. PHYSICAL EXAMINATION: This is a well-appearing, slightly confused 84-year-old female with no lumbar spine or sacral pain. No pain steps or gaps in her lumbar or sacrum area. There is some mild knee pain. Hip incision is well healed with no complication, redness, swelling, or drainage. There is mild distal femur pain. Normal sensation and motor function of her foot. Foot is warm and well perfused. Good pedal pulses. She can wiggle her toes, dorsiflex and plantarflex the foot. Hip and pelvis x-ray was reviewed. Shows open reduction, internal fixation of the right hip joint; hardware position appears normal. There has also been lumbar spine x-ray. This shows stable compression fractures at L4 and S1, degenerative changes, stable compared to last radiographs and MRI. ASSESSMENT AND PLAN: This 84-year-old female has some mild distal femur pain. She had a mechanical fall. There is no obvious deformity or pain with range of motion testing of the knee; however, I will go ahead and order full length femur views to assess the nail position to rule out fracture lower down. In terms of her lower lumbar spine sacral insufficiency fracture, she can be weightbearing as tolerated for this, as she does not appear to be having any pain from that area, and this appears stable compared to previous imaging on that. [facility]
--- NOTE | 2020-07-03 13:05 | IPNPDOC ---
Date Seen The patient was seen on 07/03/20. Progress Note SUBJECTIVE: Patient was seen and examined at the bedside. Chart has been reviewed. She says that her pain is well controlled at this time and does not want any changes in her medications. She has not had any bowel movement and complains of constipation this morning. She is however tolerating her diet without nausea or vomiting. No other issues per nursing OBJECTIVE: PHYSICAL EXAMINATION: VITAL SIGNS: see below GENERAL: Pleasant, awake, alert, oriented to person, place Answering questions appropriately., No respiratory distress No conversational dyspnea, or use of respiratory accessory muscles H EENT: No jaundice No fascial asymmetry. Anicteric. No jaundice No jugular venous distention (JVD) or thyromegaly., Moist mucous membranes. . Tongue is midline. No carotid bruit. No stridor LUNGS: Clear to auscultation. No wheezing, rales, or rhonchi. No kyphosis. No use of respiratory accessory muscles. No adventitious breath sounds HEART: S1, S2, irregularly irregular. Nondisplaced point of maximal impulse ABDOMEN: Soft, nontender, nondistended. Positive bowel sounds. , No rebound or g uarding. No hepatosplenomegaly. No abdominal bruit EXTREMITIES: No cyanosis or clubbing. Bilateral knees without effusion, erythema, postoperative changes on prior arthroplasty. Range of motion is jarrell ited by pain due to arthritis LABORATORY DATA: see below ASSESSMENT: This is an 84-year-old female at [facility] when she had fallen and had a sacral fracture. Review of her x-rays by orthopedic surgeon, Dr. Cast, had been done in the ER with recommendations to continue activity as tolerated and pain control. ice and elevation of affected extremities. 1. Recurrent fall with sacral fracture. Being evaluated by physical therapy. non-surgical per orthopedic surgery 2. Chronic atrial fibrillation. , Rate controlled. 3. Chronic kidney disease, stage III, currently at baseline creatinine. 4. Hypertension. 5. Dyslipidemia, chronic. 6. Anxiety and depression, chronic. 7. Hypothyroidism, on Synthroid. 8. History of right breast cancer, status post right lumpectomy, on anastrozole. 9. . Acute encephalopathy secondary to OxyContin causing sedation, resolved 10. Constipation PLAN: Patient is medically stable for hospital discharge. Her pain is controlled. Her sacral fracture was nonsurgical and she appears to be stable from the physical therapy standpoint to be released. At this time. Patient will need a colon test as well as a bowel regimen to have a bowel movement. Discharge plans are for the morning. She is continued on all her home medications with no changes. VS, I&O, 24H, Fishbone Vital Signs/I&O Vital Signs Date Time Temp Pulse Resp B/P (MAP) Pulse Ox O2 Delivery O2 Flow Rate FiO2 07/03/20 08:39 84 129/72 07/03/20 06:00 96.4 18 100 Room Air I&O- Last 24 Hours up to 6 AM 07/03/20 06:00 Intake Total 1410 ml Output Total 300 ml Balance 1110 ml Laboratory Data 24H LABS Laboratory Tests 2 07/03/20 05:45: Anion Gap 6L, Glomerular Filtration Rate 42.3, Calcium Level 8.8 CBC/BMP Laboratory Tests 07/03/20 05:45 MIKKI LORENZO MD Jul 03, 2020 13:05
[2020-07-03 14:00] VITALS: BP 130/73
[2020-07-03] MEDS: PRAMIPEXOLE 0.25 MG TAB PO SCH (21:25)
[2020-07-03] MEDS: ATORVASTATIN 10 MG TAB PO SCH (21:25)
[2020-07-03] MEDS: VITAMIN D 1,000 INTERNATIONAL UNITS TABLET PO SCH (21:25)
[2020-07-03] MEDS: IRBESARTAN 150MG TAB PO SCH (21:26)
[2020-07-03 22:00] VITALS: BP 135/75
[2020-07-04] MEDS: LEVOTHYROXINE 125MCG TABLET (0.125MG) PO SCH (05:46)
[2020-07-04 06:00] VITALS: BP 134/78
[2020-07-04 06:28] LABS: BLOOD UREA NITROGEN 15 MG/DL (7-18); CALCIUM LEVEL 9.1 MG/DL (8.8-10.2); CARBON DIOXIDE LEVEL 25 MEQ/L (21-32); CHLORIDE LEVEL 101 MEQ/L (98-107); CREATININE FOR GFR 0.93 MG/DL (0.55-1.30); GLOMERULAR FILTRATION RATE > 60.0 (>32); GLUCOSE, FASTING 78 MG/DL (70-100); POTASSIUM SERUM 3.9 MEQ/L (3.5-5.1); SODIUM LEVEL 133 MEQ/L (136-145)
[2020-07-04] MEDS: LETROZOLE 2.5 MG TAB PO SCH (08:09)
[2020-07-04] MEDS: ACETAMINOPHEN 500 MG TAB PO SCH (08:09)
[2020-07-04] MEDS: ESCITALOPRAM OXALATE 10 MG TAB (LEXAPRO) PO SCH (08:09)
[2020-07-04] MEDS: IBUPROFEN 200MG TAB PO SCH (08:09)
[2020-07-04] MEDS: MULTIVITAMINS/MINERALS THERAP 1 TAB PO SCH (08:09)
[2020-07-04 08:10] VITALS: BP 123/75
[2020-07-04] MEDS: PROPRANOLOL 20 MG TAB PO SCH (08:10)
[2020-07-04] MEDS: OMEPRAZOLE 20 MG CAP PO SCH (08:10)
[2020-07-04] MEDS: buPROPion **XL** TABLET 150MG (WELLBUTRIN XL) PO SCH (08:15)
--- NOTE | 2020-07-04 21:34 | DS.PDOC ---
Discharge Summary General Date of Admission Jun 28, 2020 at 10:37 Date of Discharge Jul 04, 2020 Attending Physician: RAS GUTIERREZ DO Specialist/Consultants [facility] Orthopedic surgery, Dr. Cast Discharge Summary PROCEDURES PERFORMED DURING STAY: None. ADMITTING DIAGNOSES: 1. Intractable Pain s/p fall 2. Recurrent Falls 3. Sacral Fracture 4. Recent Hip Fracture s/p Left hip ORIF 5. Atrial fibrillation 6. CKD 3 7. Hypertension 8. Dyslipidemia 9. Anxiety/depression 10. GERD 11. Hypothyroidism 12. Right breast cancer status post right lumpectomy on adjuvant anastrozole. DISCHARGE DIAGNOSES: 1. Intractable Pain s/p fall 2. Recurrent Falls 3. Sacral Fracture 4. Recent Hip Fracture s/p Left hip ORIF 5. Atrial fibrillation 6. CKD 3 7. Hypertension 8. Dyslipidemia 9. Anxiety/depression 10. GERD 11. Hypothyroidism 12. Right breast cancer status post right lumpectomy on adjuvant anastrozole. 13. Acute encephalopathy 2/2 oxycontin, resolved 14. Constipation COMPLICATIONS/CHIEF COMPLAINT: Sacral Fracture. HISTORY OF PRESENT ILLNESS: Patient is an 85-year-old female with recurrent falls, left hip fracture status post left ORIF, atrial fibrillation, COPD stage III, and hypertension who is from [facility] who comes to the ED for having a fall prior to admission and having a 10 out of 10 pain in the sacrum area. Imaging demonstrated sacral fracture. Patient was admitted for intractable pain. HOSPITAL COURSE: During this admission, orthopedic surgery Dr. Cast was consulted. No surgery at this time. Recommended continued activity and pain control. Continue to ice and elevate affected extremities. Patient was on OxyContin for pain control but had caused increased sedation. It was discontinued. She is put on scheduled Tylenol for pain control. Today she is feeling better. Denied any fever or chills, lightheadedness or dizziness, chest pain, dyspnea, abdominal pain, or dysuria. She subsequently return to [facility] DISCHARGE MEDICATIONS: Please see below. ALLERGIES: Please see below. PHYSICAL EXAMINATION ON DISCHARGE: VITAL SIGNS: Please see below. GENERAL: Comfortable, in no apparent distress. HEENT: Head normocephalic/atraumatic, EOMI, sclera clear. NECK: Supple RESPIRATORY: Lungs clear to auscultation bilaterally, no rales, wheeze or rhonchi. CARDIOVASCULAR: Regular rate and rhythm. ABDOMEN: Soft, nontender, no guarding or rebound tenderness. Normal bowel sounds. MUSCLE SKELETAL: Mild pitting edema NEUROLOGICAL: CN 312 grossly intact PSYCHOLOGICAL: Normal mood and affect LABORATORY DATA: Please see below. IMAGING: X-ray of the lumbosacral spine 1. Wedge compression deformity of L4 grossly similar in configuration to the previous MRI. 2. Degenerative changes lower lumbar spine with facet arthritis. 3. Insufficiency areas of fracture of the upper sacrum. X-ray right hip with pelvis 1. Hardware positioning subacute fracture proximal right femur. 2. Narrowing right hip joint. CT head without contrast 1. No acute intracranial abnormality. 2. Atrophy and chronic deep white matter ischemic changes. PROGNOSIS: Stable ACTIVITY: As tolerated DIET: 2 g sodium DISCHARGE PLAN: Return to [facility] DISPOSITION: [facility]. DISCHARGE INSTRUCTIONS: 1. Follow with her PCP within one week 2. Follow with orthopedics in one week for reevaluation of sacral fracture. DISCHARGE CONDITION: Stable Total time spent on discharge planning, discharge summary, and med reconciliation 45 minutes Vital Signs/I&Os Vital Signs Date Time Temp Pulse Resp B/P (MAP) Pulse Ox O2 Delivery O2 Flow Rate FiO2 07/04/20 08:10 94 123/75 07/04/20 06:00 97.9 18 94 Room Air I&O- Last 24 Hours up to 6 AM 07/04/20 06:00 Intake Total 780 ml Output Total 700 ml Balance 80 ml Laboratory Data Labs 24H Laboratory Tests 2 07/04/20 05:44: Anion Gap 7L, Glomerular Filtration Rate > 60.0, Calcium Level 9.1 CBC/BMP Laboratory Tests 07/04/20 05:44 Discharge Medications Scheduled Acetaminophen (Acetaminophen) 500 Mg Tablet, 1,000 MG PO QID Alendronate Sodium (Alendronate Sodium) 70 Mg Tablet, 70 MG PO QWEEK, (Reported) MONDAYS Atorvastatin Calcium (Atorvastatin Calcium) 10 Mg Tablet, 10 MG PO QHS, (Reported) Bupropion HCl (Bupropion Xl) 300 Mg Tab.er.24h, 300 MG PO DAILY, (Reported) Cholecalciferol (Vitamin D3) (Vitamin D3) 1,000 Unit Tablet, 1,000 UNITS PO QHS, (Reported) Escitalopram Oxalate (Escitalopram Oxalate) 10 Mg Tablet, 10 MG PO DAILY, (Reported) Irbesartan (Irbesartan) 150 Mg Tablet, 150 MG PO QHS, (Reported) Letrozole (Letrozole) 2.5 Mg Tablet, 2.5 MG PO DAILY, (Reported) Levothyroxine Sodium (Levothyroxine Sodium) 125 Mcg Tablet, 125 MCG PO DAILY, (Reported) Multivitamins (Thera M Plus Tablet) 1 Each Tablet, 1 TAB PO DAILY, (Reported) Omeprazole (Omeprazole) 40 Mg Capsule.dr, 40 MG PO DAILY, (Reported) Pramipexole Di-HCl (Mirapex) 0.5 Mg Tablet, 0.5 MG PO QHS, (Reported) Propranolol HCl (Propranolol HCl) 40 Mg Tablet, 40 MG PO BID, (Reported) Rivaroxaban (Xarelto) 15 Mg Tablet, 15 MG PO QPM, (Reported) Scheduled PRN Acetaminophen (Acetaminophen) 325 Mg Tablet, 650 MG PO Q4H PRN for PAIN, (Reported) Bisacodyl (Dulcolax) 10 Mg Supp.rect, 10 MG WA DAILY PRN for CONSTIPATION, (Reported) Milk Of Magnesia (Milk of Magnesia) 2,400 Mg/10 Ml Oral.susp, 10 ML PO DAILY PRN for CONSTIPATION, (Reported) Sodium Phosphate,[place]-Dibasic (Enema) 133 Ml Enema, 1 YAKVO WA DAILY PRN for CONSTIPATION, (Reported) Allergies Coded Allergies: amoxicillin (Verified Allergy, Unknown, 11/22/19) meperidine (Verified Allergy, Unknown, 11/22/19) RAS GUTIERREZ DO Jul 04, 2020 21:34
--- NOTE | 2020-07-05 13:21 | REP ---
RIGHT FEMUR: 4-VIEWS HISTORY: Pain after a fall. FINDINGS: Four views of the right femur demonstrate old femoral neck pin and intramedullary jama for intertrochanteric fracture. There is some heterotopic bone around the lesser trochanteric fragment. Vascular calcification is noted. On the frog leg view of the proximal femur, there is an acute fracture through the subtrochanteric diaphysis of the femur, nondisplaced. This is not seen on the frontal projections. There is a metallic suture projecting in the right inguinal soft tissues. No right pelvic fracture is seen. IMPRESSION: Status post intramedullary jama fixation for old healed intertrochanteric fracture. Acute nondisplaced fracture of the subtrochanteric femur nondisplaced. MTDD
== END 2020-07-04 11:21 | DRG 552 ==
LOC: EDBD 08:49 → M ED 08:49 → M ED INP 10:37 → ENRESERV 14:06 → M MSPAV 14:47
PROVIDERS: ADMIT General Practice; ATTEND Internal Medicine
DX: S32.10XA Unspecified fracture of sacrum, initial encounter for closed fracture (principal); G93.40 Encephalopathy, unspecified; I48.20 Chronic atrial fibrillation, unspecified; N18.30 Chronic kidney disease, stage 3 unspecified; I12.9 Hypertensive chronic kidney disease with stage 1 through stage 4 chronic kidney disease, or unspecified chronic kidney disease; K21.9 Gastro-esophageal reflux disease without esophagitis; E03.9 Hypothyroidism, unspecified; F41.9 Anxiety disorder, unspecified; F32.9 Major depressive disorder, single episode, unspecified; Z85.3 Personal history of malignant neoplasm of breast; R29.6 Repeated falls; K59.00 Constipation, unspecified; J44.9 Chronic obstructive pulmonary disease, unspecified; Z79.899 Other long term (current) drug therapy; Z88.0 Allergy status to penicillin; Z88.8 Allergy status to other drugs, medicaments and biological substances; Z87.891 Personal history of nicotine dependence; Z96.661 Presence of right artificial ankle joint; Z96.662 Presence of left artificial ankle joint; E78.5 Hyperlipidemia, unspecified; W18.30XA Fall on same level, unspecified, initial encounter; Y92.9 Unspecified place or not applicable

== ENCOUNTER → 2020-08-03 | Outpatient (REF) ==
[~2020-08-03] MED LIST changes: +ACET-683 PO; +DULC10SU2 PR; +ENEMENE PR; +MOM30SS PO; +QC A650T3 PO; +VITMTA PO
[2020-08-03 09:07] LABS: HEMATOCRIT 31.5 % (36.0-47.0); MEAN CORPUSCULAR HEMOGLOBIN 30.6 pg (27.0-33.0); MEAN CORPUSCULAR HGB CONC 31.7 g/dl (32.0-36.5); MEAN CORPUSCULAR VOLUME 96.3 fl (80.0-96.0); PLATELET COUNT, AUTOMATED 224 10^3/uL (150-450); RED BLOOD COUNT 3.27 10^6/uL (4.00-5.40); WHITE BLOOD COUNT 6.9 10^3/uL (4.0-10.0)
[2020-08-03 09:39] LABS: CALCIUM LEVEL 9.1 MG/DL (8.8-10.2); CREATININE FOR GFR 1.11 MG/DL (0.55-1.30); GLOMERULAR FILTRATION RATE 49.9 (>32); POTASSIUM SERUM 4.4 MEQ/L (3.5-5.1)
[2020-08-03 09:49] LABS: TOTAL 25(OH) VITAMIN D 44.8 NG/ML (30.0-100.0)
== END ==
LOC: SKLAB7 07:00
PROVIDERS: ATTEND Internal Medicine
DX: N18.9 Chronic kidney disease, unspecified (principal); M19.90 Unspecified osteoarthritis, unspecified site; D64.9 Anemia, unspecified

== ENCOUNTER → 2020-08-10 | Outpatient (REF) ==
[2020-08-11 08:24] LABS: INFLUENZA A AMPLIFICATION NEGATIVE (NEGATIVE); INFLUENZA B AMPLIFICATION NEGATIVE (NEGATIVE)
== END ==
LOC: SKLAB7 14:04
PROVIDERS: ATTEND Internal Medicine
DX: Z20.828 Contact with and (suspected) exposure to other viral communicable diseases (principal)

== ENCOUNTER 2020-08-15 15:27 | Outpatient (RCR) | END 2020-08-28 | LOC: SKLAB7 15:27 | PROVIDERS: ATTEND Internal Medicine | DX: Z20.828 Contact with and (suspected) exposure to other viral communicable diseases (principal) ==

== ENCOUNTER → 2020-08-17 | Outpatient (REF) | payer MEDICARE ==
[2020-08-17 11:47] LABS: ALBUMIN 3.5 GM/DL (3.2-5.2); BILIRUBIN,TOTAL 0.5 MG/DL (0.2-1.0); CALCIUM LEVEL 8.7 MG/DL (8.8-10.2); CHOLESTEROL RISK RATIO 2.647 (<5); CREATININE FOR GFR 1.11 MG/DL (0.55-1.30); GLOMERULAR FILTRATION RATE 49.9 (>32); TOTAL PROTEIN 6.9 GM/DL (6.4-8.2)
== END ==
LOC: SKLAB7 07:00
PROVIDERS: ATTEND Internal Medicine
DX: N18.9 Chronic kidney disease, unspecified (principal); D63.1 Anemia in chronic kidney disease

== ENCOUNTER → 2020-08-23 | Outpatient (REF) | LOC: SKLAB7 08:00 | PROVIDERS: ATTEND Internal Medicine | DX: Z20.828 Contact with and (suspected) exposure to other viral communicable diseases (principal) ==

== ENCOUNTER → 2020-08-30 | Outpatient (REF) | LOC: SKLAB7 08:00 | PROVIDERS: ATTEND Internal Medicine | DX: Z20.828 Contact with and (suspected) exposure to other viral communicable diseases (principal) ==

== ENCOUNTER → 2020-08-31 | Outpatient (REF) | payer MEDICARE ==
[2020-08-31 08:14] LABS: HEMATOCRIT 30.6 % (36.0-47.0); HEMOGLOBIN 9.7 g/dl (12.0-15.5); MEAN CORPUSCULAR HEMOGLOBIN 30.2 pg (27.0-33.0); MEAN CORPUSCULAR HGB CONC 31.7 g/dl (32.0-36.5); MEAN CORPUSCULAR VOLUME 95.3 fl (80.0-96.0); PLATELET COUNT, AUTOMATED 183 10^3/uL (150-450); RED BLOOD COUNT 3.21 10^6/uL (4.00-5.40); WHITE BLOOD COUNT 4.7 10^3/uL (4.0-10.0)
[2020-08-31 09:07] LABS: CREATININE FOR GFR 1.18 MG/DL (0.55-1.30); GLOMERULAR FILTRATION RATE 46.5 (>32); POTASSIUM SERUM 4.5 MEQ/L (3.5-5.1)
== END ==
LOC: SKLAB7 14:37
PROVIDERS: ATTEND Internal Medicine
DX: N18.9 Chronic kidney disease, unspecified (principal); D63.1 Anemia in chronic kidney disease

== ENCOUNTER → 2020-09-02 | Outpatient (REF) | LOC: SKLAB7 08:00 | PROVIDERS: ATTEND Internal Medicine | DX: Z20.828 Contact with and (suspected) exposure to other viral communicable diseases (principal) ==

== ENCOUNTER → 2020-09-06 | Outpatient (REF) | payer MEDICARE ==
--- NOTE | 2020-09-06 16:10 | REP ---
INDICATION: POST IM NAIL/FX PAIN. COMPARISON: Right femur dated 06/28/2020 four views. TECHNIQUE: Single AP view of the right hip. FINDINGS: The proximal portion of gamma nail fixation of the right hip is identified. The mid and distal portions are excluded at the inferior film margin. This fixation was present previously. On the prior study there is a nondisplaced cortical fracture on the frog-leg view of the hip. There is no frogleg view today. This fracture was not identified on the previous an AP view and is not identified on the AP view today. Heterotopic bone is again noted adjacent to the lesser trochanter. There are 2 metallic densities in the pelvis as previously, likely surgical metallic sutures. There is joint space narrowing of the right hip, unchanged. IMPRESSION: Gamma nail fixation and heterotopic bone formation as described. <Electronically signed by Johnathan Garcia > 09/06/20 [id number]
== END ==
LOC: SKLAB7 08:33
PROVIDERS: ATTEND Internal Medicine
DX: Z20.828 Contact with and (suspected) exposure to other viral communicable diseases (principal); Z87.81 Personal history of (healed) traumatic fracture; Z96.9 Presence of functional implant, unspecified
CPT/HCPCS: 73501; U0003

== ENCOUNTER → 2020-09-13 | Outpatient (REF) | payer MEDICARE | LOC: SKLAB7 14:53 | PROVIDERS: ATTEND Internal Medicine | DX: Z20.828 Contact with and (suspected) exposure to other viral communicable diseases (principal) ==

== ENCOUNTER → 2020-09-20 | Outpatient (REF) | payer MEDICARE | LOC: SKLAB7 07:00 | PROVIDERS: ATTEND Internal Medicine | DX: Z20.828 Contact with and (suspected) exposure to other viral communicable diseases (principal) ==

== ENCOUNTER → 2020-09-27 | Outpatient (REF) | payer MEDICARE | LOC: SKLAB7 09:24 | PROVIDERS: ATTEND Internal Medicine | DX: Z20.828 Contact with and (suspected) exposure to other viral communicable diseases (principal) ==

== ENCOUNTER → 2020-10-04 | Outpatient (REF) | payer MEDICARE | LOC: SKLAB7 07:00 | PROVIDERS: ATTEND Internal Medicine | DX: Z11.52 Encounter for screening for COVID-19 (principal) ==

== ENCOUNTER → 2020-10-11 | Outpatient (REF) | payer MEDICARE ==
[~2020-10-11] MED LIST changes: -ALEN70TA74 PO; +ALEN70TA82 PO; +ESCI10TA16 PO; -ESCI10TA2 PO
== END ==
LOC: SKLAB7 10:31
PROVIDERS: ATTEND Internal Medicine
DX: Z11.52 Encounter for screening for COVID-19 (principal)

== ENCOUNTER → 2020-10-16 | Outpatient (CLI) | payer MEDICARE ==
--- NOTE | 2020-10-16 10:04 | REP ---
INDICATION: ENCOUNTER FOR OTHER ORTHO AFTERCARE COMPARISON: 06/28/2020 TECHNIQUE: AP view of the pelvis with AP and frog-lateral views of the right proximal to mid/distal femur. FINDINGS: Evidence for prior right intertrochanteric femur fracture with orthopedic fixation. No acute fracture or dislocation. Orthopedic hardware is in stable satisfactory position. Posttraumatic and age related arthritic changes are noted. IMPRESSION: Status post open reduction and fixation for right intertrochanteric proximal femur fracture. <Electronically signed by Maycol Smart > 10/16/20 1000
== END ==
LOC: M SOG 09:35
PROVIDERS: ATTEND Orthopaedic Surgery Sports Medicine
DX: Z47.89 Encounter for other orthopedic aftercare (principal); S72.91XD Unspecified fracture of right femur, subsequent encounter for closed fracture with routine healing

== ENCOUNTER → 2020-10-24 | Outpatient (REF) | payer MEDICARE ==
[2020-10-24 14:33] LABS: BASO % 0.4 % (0.0-1.0); EOS # 0.1 10^3/uL (0.0-0.5); EOS % 2.2 % (0.0-3.0); HEMATOCRIT 35.6 % (36.0-47.0); HEMOGLOBIN 11.2 g/dl (12.0-15.5); LYMPH # 1.5 10^3/uL (1.5-5.0); LYMPH % 26.9 % (24.0-44.0); MEAN CORPUSCULAR HEMOGLOBIN 30.2 pg (27.0-33.0); MEAN CORPUSCULAR HGB CONC 31.5 g/dl (32.0-36.5); MONO # 0.5 10^3/uL (0.0-0.8); MONO % 8.2 % (0.0-5.0); NEUTROPHILS # 3.4 10^3/uL (1.5-8.5); NEUTROPHILS % 61.9 % (36.0-66.0); PLATELET COUNT, AUTOMATED 229 10^3/uL (150-450); RED BLOOD COUNT 3.71 10^6/uL (4.00-5.40); WHITE BLOOD COUNT 5.5 10^3/uL (4.0-10.0)
[2020-10-24 15:37] LABS: CALCIUM LEVEL 9.7 MG/DL (8.8-10.2); CREATININE FOR GFR 1.32 MG/DL (0.55-1.30); GLOMERULAR FILTRATION RATE 40.8 (>32); THYROID STIMULATING HORMONE 2.14 uIU/ML (0.358-3.740)
== END ==
LOC: M SHH 14:03
PROVIDERS: ATTEND Internal Medicine
DX: G30.1 Alzheimer's disease with late onset (principal); N18.31 Chronic kidney disease, stage 3a; E03.9 Hypothyroidism, unspecified

== ENCOUNTER 2021-07-10 08:52 | Emergency (ER) | payer MEDICARE ==
[~2021-07-10] VITALS: Ht 170.2 cm; Wt 77.3 kg
[~2021-07-10 08:52] MED LIST changes: -PEG1POW PO; +POLY17PO18 PO
[2021-07-10] MEDS ORDERED: COLA100C5 PO (09:07)
[2021-07-10] MEDS ORDERED: MIRA0.12 PO (09:07)
--- NOTE | 2021-07-10 09:53 | REP ---
INDICATION: generalized weakness, poor memory COMPARISON: 06/28/2020 TECHNIQUE: Axial noncontrast images from the skull base to the thoracic inlet with coronal reformations. This CT examination was performed using the following dose reduction techniques: Automated exposure control, adjustment of mA and/or kv according to the patient's size, and use of iterative reconstruction technique. FINDINGS: Atrophy with periventricular leukomalacia and microvascular ischemic changes are appreciated. The ventricles and sulci are symmetric. Castaneda-white differentiation is maintained. There is no evidence for acute intracranial hemorrhage, mass/mass effect, pathology or infarction. No extra-axial fluid collection. Calvarium is intact. Paranasal sinuses and mastoid air cells are clear. IMPRESSION: Atrophy and microvascular ischemic changes. No acute intracranial hemorrhage, infarction, or mass/mass effect. <Electronically signed by Maycol Smart > 07/10/21 [id number]
--- NOTE | 2021-07-10 09:58 | REP ---
INDICATION: weakness COMPARISON: 05/12/2020 TECHNIQUE: Portable AP view of the chest FINDINGS: The mediastinum and cardiac silhouette are stable and within normal limits for portable technique. The lung campbell are clear without acute consolidation, effusion, or pneumothorax. Skeletal structures are intact. IMPRESSION: No acute cardiopulmonary process appreciated. <Electronically signed by Maycol Smart > 07/10/21 0986
[2021-07-10 10:29] LABS: BASO % 0.5 % (0.0-1.0); EOS # 0.1 10^3/uL (0.0-0.5); EOS % 1.4 % (0.0-3.0); HEMATOCRIT 34.8 % (36.0-47.0); HEMOGLOBIN 11.4 g/dl (12.0-15.5); LYMPH # 1.3 10^3/uL (1.5-5.0); LYMPH % 22.2 % (24.0-44.0); MEAN CORPUSCULAR HEMOGLOBIN 30.2 pg (27.0-33.0); MEAN CORPUSCULAR HGB CONC 32.8 g/dl (32.0-36.5); MEAN CORPUSCULAR VOLUME 92.1 fl (80.0-96.0); MONO # 0.5 10^3/uL (0.0-0.8); MONO % 8.3 % (2.0-8.0); NEUTROPHILS # 3.9 10^3/uL (1.5-8.5); NEUTROPHILS % 67.3 % (36.0-66.0); PLATELET COUNT, AUTOMATED 182 10^3/uL (150-450); RED BLOOD COUNT 3.78 10^6/uL (4.00-5.40); WHITE BLOOD COUNT 5.8 10^3/uL (4.0-10.0)
[2021-07-10 11:32] LABS: ALBUMIN 3.2 GM/DL (3.2-5.2); ALT/SGPT 14 U/L (12-78); BILIRUBIN,DIRECT 0.2 MG/DL (0.0-0.2); BLOOD UREA NITROGEN 16 MG/DL (7-18); CALCIUM LEVEL 8.6 MG/DL (8.8-10.2); CARBON DIOXIDE LEVEL 23 MEQ/L (21-32); CHLORIDE LEVEL 106 MEQ/L (98-107); CK-MB VALUE MASS < 1.0 NG/ML (<3.6); CPK CREATINE PHOSPHOKINASE 44 U/L (26-192); CREATININE FOR GFR 1.19 MG/DL (0.55-1.30); ETHYL ALCOHOL (ETHANOL) 0.003 % (0.000-0.010); GLOMERULAR FILTRATION RATE 45.9 (>32); GLUCOSE, FASTING 100 MG/DL (70-100); MAGNESIUM LEVEL 1.7 MG/DL (1.8-2.4); MB/CK RELATIVE INDEX 2.27 (< OR =4); POTASSIUM SERUM 4.6 MEQ/L (3.5-5.1); SODIUM LEVEL 135 MEQ/L (136-145); THYROID STIMULATING HORMONE 0.248 uIU/ML (0.358-3.740); TROPONIN I < 0.02 NG/ML (< 0.10); VITAMIN B12 LEVEL 921 PG/ML (247-911)
[2021-07-10 11:46] LABS: ERYTHROCYTE SEDIMENTATION RATE 25 mm/hr (0-30)
[2021-07-10] MEDS ORDERED: MAG SULF 1GM/100ML (MAG RUN) 1 GM in IV 1 EA IV ONE (12:30)
[2021-07-10 13:19] LABS: FREE T4 1.75 NG/DL (0.76-1.46)
[2021-07-10] MEDS ORDERED: BACT800T5 PO (14:09)
[2021-07-10] MEDS ORDERED: BACTRIM 160MG/800MG DS TAB PO ONE (14:10)
[2021-07-10 14:30] VITALS: BP 153/95
--- NOTE | 2021-07-10 21:47 | ECGEPIP ---
[facility] - ED Test Date: 2021-07-10 Pat Name: RAFAEL MICHAEL Department: Room: - Gender: Female New Media Strategist: ANDREA : 1935 Requested By: MARK Alarcon Order Number: [id number] Reading MD: Mark Obrien Measurements Intervals [place] Rate: 89 P: 66 WI: QRS: 106 QRSD: 134 T: -37 QT: 416 QTc: 506 Interpretive Statements atrial fibrillation Right bundle branch block T wave abnormality Prolonged QTc interval new from tracing done 11-26-19 Electronically Signed on 07-10-2021 21:47:23 EDT by Mark Obrien
[2021-07-11 14:09] LABS: ANTINUCLEAR ANTIBODIES DIRECT Negative (Negative)
== END 2021-07-10 15:00 | disposition home or self-care (01) ==
LOC: EDBD 08:52 → M ED 08:52
DX: N39.0 Urinary tract infection, site not specified (principal); I48.91 Unspecified atrial fibrillation; I45.10 Unspecified right bundle-branch block; I10 Essential (primary) hypertension; K21.9 Gastro-esophageal reflux disease without esophagitis; N18.30 Chronic kidney disease, stage 3 unspecified; E03.9 Hypothyroidism, unspecified; Z79.01 Long term (current) use of anticoagulants; Z79.899 Other long term (current) drug therapy; Z88.0 Allergy status to penicillin; Z88.8 Allergy status to other drugs, medicaments and biological substances
CPT/HCPCS: 70450; 71045; 80048; 80076; 81001; 82077; 82550; 82553; 82607; 83605; 83735; 84439; 84443; 84484; 85025; 85652; 86038; 86140; 86780; 87088; 87186; 93005; 93041; 94760; 96365; 99285; J3475

== ENCOUNTER → 2021-09-04 | Outpatient (CLI) | payer MEDICARE ==
[~2021-09-04] MED LIST changes: +BACT800T5 PO; +COLA100C5 PO; +MIRA0.12 PO
--- NOTE | 2021-09-04 12:53 | REPMRS ---
Patient History The patient states she has not had a clinical breast exam in over a year. Patient is postmenopausal, has history of cancer in the right breast at age 76, had previous chest radiation therapy, and had previous chemotherapy. No known family history of cancer. 45 lb intentional weight loss. Pfizer vaccines 10/03/20 left arm. 10/24/20 left arm. booster 08/27/21 left arm. Patient states no breast complaints today. Patient has signed MRS History Sheet. Digital Woman Screen Mammo: September 04, 2021 - Exam #: [id number] Bilateral CC and MLO view(s) were taken. Technologist: Betsy Flores, RT Prior study comparison: August 18, 2018, bilateral digital mammo screening bilat, performed at [facility]. March 06, 2018, bilateral breast MRI, performed at [facility]. August 12, 2017, bilateral digital mammo screening bilat, performed at [facility]. FINDINGS: There are scattered fibroglandular densities. Screening. This patient?s lifetime risk for the development of invasive breast cancer can?t be calculated due to her age (less than 20 or greater than 85 years) or a prior history of in situ or invasive breast cancer. Digital screening (2D) mammography was performed bilaterally. Additionally, breast tomosynthesis (3D mammography) was performed bilaterally in the CC and MLO projections. Today's exam was compared to the prior exam/exams. By history, the patient has no complaints of a palpable breast abnormality or other significant breast complaints. The Volpara volumetric breast density category is B, there are scattered areas of fibroglandular densities. The patient is status post right lumpectomy/chemo radiation therapy due to breast carcinoma. There is stable post-procedural internal architectural distortion. The breasts are unchanged in size and shape. There are benign appearing calcifications seen, in both breasts. There are no rylee-areas of internal architectural distortion. There are no rylee-soft tissue densities or areas of spiculation. There is unchanged post radiation skin thickening. IMPRESSION: BI-RADS Category 2- Benign Findings. There is no evidence of malignant alteration of the breasts. Routine bilateral screening mammogram recommended at its regularly scheduled annual interval. This mammogram was read with the assistance of [employer],an FDA approved computer aided detection system for mammography. Negative x-ray reports should not delay surgical consultation if a dominant or clinically suspicious mass is present. Not all breast cancers can be identified by mammography. Therefore, we recommend that you continue to perform regular breast self-examination and physical examination and then promptly contact your physician of any concerns or changes. Adenosis and dense breasts may obscure an underlying neoplasm. No significant changes when compared with prior studies. Assessment: BI-RADS/ACR category 2 mammogram. Benign Findings. Recommendation Routine screening mammogram of both breasts in 1 year. Electronically Signed By: Dhaval Rodriguez MD 09/04/21 [id number]
== END ==
LOC: M WHC 11:08
PROVIDERS: ATTEND Internal Medicine
DX: Z12.31 Encounter for screening mammogram for malignant neoplasm of breast (principal); Z85.3 Personal history of malignant neoplasm of breast; Z92.3 Personal history of irradiation; Z92.21 Personal history of antineoplastic chemotherapy; R92.1 Mammographic calcification found on diagnostic imaging of breast

== ENCOUNTER 2021-12-13 14:07 | Inpatient (IN) | payer MEDICARE ==
[~2021-12-13] VITALS: Ht 165.1 cm; Wt 77.6 kg
[~2021-12-13 14:07] MED LIST changes: -D31000TA2 PO; -OMEP-221 PO; +OMEP40CA5 PO; +VITA100093 PO
[2021-12-13 15:55] LABS: CREATININE FOR GFR 1.61 MG/DL (0.55-1.30)
[2021-12-13 15:56] LABS: CALCIUM LEVEL 8.7 MG/DL (8.8-10.2); FREE T4 1.38 NG/DL (0.76-1.46); GLOMERULAR FILTRATION RATE 32.4 (>32); POTASSIUM SERUM 4.7 MEQ/L (3.5-5.1); THYROID STIMULATING HORMONE 1.46 uIU/ML (0.358-3.740)
[2021-12-13] MEDS ORDERED: NS 500 ML IV ONE (16:05)
[2021-12-13 16:16] LABS: HEMATOCRIT 26.8 % (36.0-47.0); HEMOGLOBIN 9.1 g/dl (12.0-15.5); MEAN CORPUSCULAR HEMOGLOBIN 34.7 pg (27.0-33.0); MEAN CORPUSCULAR VOLUME 102.3 fl (80.0-96.0); RED BLOOD COUNT 2.62 10^6/uL (4.00-5.40); WHITE BLOOD COUNT 1.6 10^3/uL (4.0-10.0)
[2021-12-13 17:00] LABS: PLATELET COUNT, AUTOMATED 72 10^3/uL (150-450)
[2021-12-13 17:16] LABS: EOSINOPHILS 4 % (0-3); LYMPHOCYTES 82 % (16-44); MONOCYTES 5 % (0-5); NEUTROPHILS 9 % (28-66); PLATELET ESTIMATE DECREASED (NORMAL)
[2021-12-13 17:38] LABS: HEMATOCRIT 26.8 % (36.0-47.0); MEAN CORPUSCULAR HEMOGLOBIN 34.7 pg (27.0-33.0); MEAN CORPUSCULAR HGB CONC 33.6 g/dl (32.0-36.5); MEAN CORPUSCULAR VOLUME 103.5 fl (80.0-96.0); RED BLOOD COUNT 2.59 10^6/uL (4.00-5.40); WHITE BLOOD COUNT 1.3 10^3/uL (4.0-10.0)
[2021-12-13 19:14] LABS: PLATELET COUNT, AUTOMATED 68 10^3/uL (150-450)
[2021-12-13 19:23] LABS: ATYPICAL LYMPH 5 % (0-5); BASOPHILS 1 % (0-1); LYMPHOCYTES 62 % (16-44); MYELOCYTES 1 % (0-0); NEUTROPHILS 30 % (28-66)
[2021-12-13 19:24] LABS: ANISOCYTOSIS 2+; OVALOCYTES 1+; POIKILOCYTOSIS 1+
[2021-12-13 19:25] LABS: PLATELET ESTIMATE MARKED DECREASE (NORMAL)
[2021-12-13] MEDS ORDERED: ISOVUE-370 76% 100ML VIAL As Ordered ONE (21:08)
[2021-12-13] MEDS ORDERED: RA N1TAB PO (21:21)
[2021-12-13] MEDS ORDERED: ACET-683 PO (21:21)
[2021-12-13] MEDS ORDERED: PROP20TA82 PO (21:21)
[2021-12-13] MEDS ORDERED: RA M500C PO (21:21)
[2021-12-13] MEDS ORDERED: HOME MED LIST COMPLETE! XX SCH (21:25)
[2021-12-13] MEDS ORDERED: MELACAP PO (21:25)
[2021-12-13 21:31] LABS: RSV AMPLIFICATION NEGATIVE (NEGATIVE)
[2021-12-14] MEDS ORDERED: CIPROFLOXACIN 400 MG in IV 1 EA IV SCH ×2
[2021-12-14 01:00] LABS: HEMATOCRIT 25.5 % (36.0-47.0); HEMOGLOBIN 8.8 g/dl (12.0-15.5)
[2021-12-14] MEDS ORDERED: HYDROMORPHONE HCL 0.5 MG/ 0.5 ML SYRINGE (J1170 PER 1) IV PRN (01:10)
[2021-12-14 01:31] LABS: ALBUMIN 3.2 GM/DL (3.2-5.2); BILIRUBIN,DIRECT 0.2 MG/DL (0.0-0.2); BILIRUBIN,TOTAL 0.8 MG/DL (0.2-1.0); TOTAL PROTEIN 6.3 GM/DL (6.4-8.2)
[2021-12-14] MEDS ORDERED: NS 500 ML IV ONE (01:45)
[2021-12-14 02:54] VITALS: BP 133/76
[2021-12-14] MEDS: NS 1,000 ML IV SCH ×2 (03:12→08:30)
[2021-12-14] MEDS: metroNIDAZOLE 500 MG in IV 1 EA IV SCH ×2 (03:17→10:35)
[2021-12-14 06:06] LABS: ALBUMIN 3.1 GM/DL (3.2-5.2); BILIRUBIN,TOTAL 0.8 MG/DL (0.2-1.0); CREATININE FOR GFR 1.46 MG/DL (0.55-1.30); GLOMERULAR FILTRATION RATE 36.2 (>32); POTASSIUM SERUM 4.6 MEQ/L (3.5-5.1); TOTAL PROTEIN 6.5 GM/DL (6.4-8.2)
[2021-12-14 06:33] VITALS: BP 105/65
[2021-12-14 08:17] LABS: HEMATOCRIT 24.5 % (36.0-47.0); HEMOGLOBIN 8.5 g/dl (12.0-15.5); MEAN CORPUSCULAR HEMOGLOBIN 35.4 pg (27.0-33.0); MEAN CORPUSCULAR HGB CONC 34.7 g/dl (32.0-36.5); MEAN CORPUSCULAR VOLUME 102.1 fl (80.0-96.0); WHITE BLOOD COUNT 1.9 10^3/uL (4.0-10.0)
[2021-12-14 08:56] LABS: PLATELET COUNT, AUTOMATED 64 10^3/uL (150-450)
[2021-12-14 09:00] LABS: ANISOCYTOSIS 1+; ATYPICAL LYMPH 5 % (0-5); LYMPHOCYTES 57 % (16-44); MONOCYTES 8 % (0-5); NEUTROPHILS 30 % (28-66); OVALOCYTES 1+; PLATELET ESTIMATE MARKED DECREASE (NORMAL)
[2021-12-14] MEDS ORDERED: diazePAM 2 MG TAB PO ONE (10:50)
[2021-12-14] MEDS ORDERED: METR-265 PO (12:05)
[2021-12-14] MEDS ORDERED: CIPR250T3 PO (12:05)
[2021-12-14 14:00] VITALS: BP 115/66
== END 2021-12-14 17:50 | disposition other institution (70) | DRG 809 ==
LOC: M ED 14:07 → M ED INP 22:39 → ENRESERV 12-14 01:02 → M MSPAV 12-14 01:42
PROVIDERS: ADMIT Internal Medicine; ATTEND Family Medicine
DX: D61.818 Other pancytopenia (principal); N17.9 Acute kidney failure, unspecified; K59.2 Neurogenic bowel, not elsewhere classified; Z95.3 Presence of xenogenic heart valve; Z92.3 Personal history of irradiation; I48.91 Unspecified atrial fibrillation; Z79.01 Long term (current) use of anticoagulants; Z96.653 Presence of artificial knee joint, bilateral; Z87.891 Personal history of nicotine dependence; F32.A Depression, unspecified; G25.81 Restless legs syndrome; E03.9 Hypothyroidism, unspecified; I10 Essential (primary) hypertension; Z66 Do not resuscitate; Z20.822 Contact with and (suspected) exposure to COVID-19; Z79.899 Other long term (current) drug therapy; Z88.1 Allergy status to other antibiotic agents; Z88.8 Allergy status to other drugs, medicaments and biological substances

== ENCOUNTER → 2021-12-24 | Outpatient (REF) | payer MEDICARE ==
[~2021-12-24] MED LIST changes: +CIPR250T3 PO; +MELACAP PO; +METR-265 PO; +PROP20TA82 PO; +RA M500C PO; +RA N1TAB PO
[2021-12-24 12:29] LABS: HEMATOCRIT 29.5 % (36.0-47.0); HEMOGLOBIN 9.9 g/dl (12.0-15.5); MEAN CORPUSCULAR HEMOGLOBIN 34.4 pg (27.0-33.0); MEAN CORPUSCULAR HGB CONC 33.6 g/dl (32.0-36.5); MEAN CORPUSCULAR VOLUME 102.4 fl (80.0-96.0); PLATELET COUNT, AUTOMATED 80 10^3/uL (150-450); RED BLOOD COUNT 2.88 10^6/uL (4.00-5.40); WHITE BLOOD COUNT 1.9 10^3/uL (4.0-10.0)
[2021-12-24 13:35] LABS: ATYPICAL LYMPH 13 % (0-5); EOSINOPHILS 1 % (0-3); LYMPHOCYTES 69 % (16-44); MONOCYTES 7 % (0-5); NEUTROPHILS 10 % (28-66)
[2021-12-24 13:36] LABS: PLATELET ESTIMATE DECREASED (NORMAL)
== END ==
LOC: M LAB REF 12:07
PROVIDERS: ATTEND Internal Medicine
DX: D61.818 Other pancytopenia (principal)

== ENCOUNTER → 2022-01-01 | Outpatient (REF) | payer MEDICARE ==
[2022-01-01 18:10] LABS: HEMATOCRIT 27.3 % (36.0-47.0); HEMOGLOBIN 9.3 g/dl (12.0-15.5); MEAN CORPUSCULAR HEMOGLOBIN 35.1 pg (27.0-33.0); MEAN CORPUSCULAR HGB CONC 34.1 g/dl (32.0-36.5); RED BLOOD COUNT 2.65 10^6/uL (4.00-5.40); WHITE BLOOD COUNT 2.1 10^3/uL (4.0-10.0)
[2022-01-01 18:13] LABS: PLATELET COUNT, AUTOMATED 76 10^3/uL (150-450)
[2022-01-01 20:31] LABS: EOSINOPHILS 3 % (0-3); LYMPHOCYTES 76 % (16-44); NEUTROPHILS 8 % (28-66)
[2022-01-01 20:33] LABS: ATYPICAL LYMPH 8 % (0-5); BLAST CELLS 5 % (0-0); PLATELET ESTIMATE DECREASED (NORMAL)
== END ==
LOC: M LAB REF 16:35
PROVIDERS: ATTEND Internal Medicine
DX: D61.818 Other pancytopenia (principal)

== ENCOUNTER 2022-01-15 09:20 | Outpatient (CLI) | payer MEDICARE ==
[~2022-01-15] VITALS: Ht 157.5 cm; Wt 77.0 kg
[2022-01-15] MEDS ORDERED: diphenhydrAMINE 25MG CAP PO ONE (09:30)
[2022-01-15] MEDS ORDERED: FUROSEMIDE 20MG/2ML VIAL (J1940) IV ONE (09:30)
[2022-01-15] MEDS ORDERED: ACETAMINOPHEN TAB 650MG DOSE (2X325MG) PO ONE (09:30)
[2022-01-15 09:51] VITALS: BP 150/75
[2022-01-15 09:59] VITALS: BP 150/75
[2022-01-15 10:15] VITALS: BP 121/68
[2022-01-15 11:41] VITALS: BP 144/74
[2022-01-15 13:25] VITALS: BP 125/68
[2022-01-15 13:42] VITALS: BP 125/68
== END 2022-01-15 13:25 | disposition home or self-care (01) ==
LOC: M INFU 09:20
PROVIDERS: ATTEND Internal Medicine Medical Oncology
DX: C95.00 Acute leukemia of unspecified cell type not having achieved remission (principal); Z88.1 Allergy status to other antibiotic agents; Z88.8 Allergy status to other drugs, medicaments and biological substances
CPT/HCPCS: 36430; J1940; P9016

== ENCOUNTER 2022-02-13 08:51 | Outpatient (CLI) | payer MEDICARE ==
[~2022-02-13] VITALS: Ht 167.6 cm; Wt 77.6 kg
[2022-02-13] VITALS (8 sets, daily range): BP systolic 117–159; BP diastolic 69–86
[~2022-02-13 08:51] MED LIST changes: +ACETAMINOPHEN TAB 650MG DOSE (2X325MG) PO SCH; +FUROSEMIDE 20MG/2ML VIAL (J1940) IV ONE; +diphenhydrAMINE 25MG CAP PO SCH
== END 2022-02-13 14:00 | disposition home or self-care (01) ==
LOC: M INFU 08:51
PROVIDERS: ATTEND Internal Medicine Medical Oncology
DX: C92.00 Acute myeloblastic leukemia, not having achieved remission (principal); D64.9 Anemia, unspecified; Z88.1 Allergy status to other antibiotic agents; Z88.8 Allergy status to other drugs, medicaments and biological substances
CPT/HCPCS: 36430; 96374; J1940; P9016

== ENCOUNTER 2022-02-20 05:39 | Inpatient (IN) | payer MEDICARE ==
[~2022-02-20] VITALS: Ht 160 cm; Wt 77.3 kg
[~2022-02-20 05:39] MED LIST changes: -ACETAMINOPHEN TAB 650MG DOSE (2X325MG) PO SCH; -FUROSEMIDE 20MG/2ML VIAL (J1940) IV ONE; -diphenhydrAMINE 25MG CAP PO SCH
[2022-02-20] MEDS ORDERED: NS 500 ML IV ONE ×2 (06:25→07:35)
[2022-02-20] MEDS ORDERED: ONDANSETRON 4MG/2ML VIAL IV ONE (06:25)
[2022-02-20 06:54] LABS: HEMATOCRIT 26.1 % (36.0-47.0); HEMOGLOBIN 8.9 g/dl (12.0-15.5); MEAN CORPUSCULAR HEMOGLOBIN 33.5 pg (27.0-33.0); MEAN CORPUSCULAR HGB CONC 34.1 g/dl (32.0-36.5); MEAN CORPUSCULAR VOLUME 98.1 fl (80.0-96.0); RED BLOOD COUNT 2.66 10^6/uL (4.00-5.40)
[2022-02-20 06:56] LABS: PLATELET COUNT, AUTOMATED 41 10^3/uL (150-450)
[2022-02-20 07:20] LABS: ALBUMIN 3.6 GM/DL (3.2-5.2); BILIRUBIN,DIRECT 0.2 MG/DL (0.0-0.2); BILIRUBIN,TOTAL 0.9 MG/DL (0.2-1.0); C REACTIVE PROTEIN QUANTITATIV 4.57 MG/DL (0.00-0.30); CALCIUM LEVEL 8.4 MG/DL (8.8-10.2); CK-MB VALUE MASS < 1.0 NG/ML (<3.6); CPK CREATINE PHOSPHOKINASE 54 U/L (26-192); CREATININE FOR GFR 1.58 MG/DL (0.55-1.30); GLOMERULAR FILTRATION RATE 33.1 (>32); MB/CK RELATIVE INDEX 1.85 (< OR =4); POTASSIUM SERUM 5.1 MEQ/L (3.5-5.1); TOTAL PROTEIN 7.2 GM/DL (6.4-8.2)
[2022-02-20 07:23] LABS: ERYTHROCYTE SEDIMENTATION RATE > 140 mm/hr (0-30)
[2022-02-20] MEDS ORDERED: ONDA-83 PO (08:04)
[2022-02-20] MEDS ORDERED: ALPR0.25 PO (08:04)
[2022-02-20] MEDS ORDERED: SENO8.6T5 PO (08:04)
[2022-02-20 08:07] LABS: BASOPHILS 1 % (0-1); EOSINOPHILS 3 % (0-3); LYMPHOCYTES 66 % (16-44); MONOCYTES 1 % (0-5); NEUTROPHILS 18 % (28-66)
[2022-02-20 08:15] LABS: ATYPICAL LYMPH 3 % (0-5); BLAST CELLS 8 % (0-0); PLATELET ESTIMATE MARKED DECREASE (NORMAL)
[2022-02-20 08:17] LABS: ANISOCYTOSIS 1+
[2022-02-20] MEDS ORDERED: ISOVUE-370 76% 100ML VIAL As Ordered ONE (08:56)
[2022-02-20] MEDS: PROPRANOLOL 20 MG TAB PO SCH ×2 (09:00→21:00)
[2022-02-20] MEDS ORDERED: ACETAMINOPHEN TAB 650MG DOSE (2X325MG) PO PRN (10:55)
[2022-02-20] MEDS ORDERED: MELA5TAB47 PO (11:03)
[2022-02-20] MEDS ORDERED: HOME MED LIST COMPLETE! XX SCH (11:05)
[2022-02-20] MEDS ORDERED: cefTRIAXone SOD 1 GM in D5W MINI-BAG PLUS 50 ML IV SCH (12:00)
[2022-02-20] MEDS: D5W/0.9% SODIUM CHLORIDE 1,000 ML IV SCH (12:20)
[2022-02-20] MEDS: buPROPion **XL** TABLET 150MG (WELLBUTRIN XL) PO SCH (13:26)
[2022-02-20] MEDS: metroNIDAZOLE 500 MG in IV 1 EA IV SCH ×2 (13:26→21:12)
[2022-02-20 14:00] VITALS: BP 132/85
[2022-02-20 19:05] LABS: CALCIUM LEVEL 8.3 MG/DL (8.8-10.2); CREATININE FOR GFR 1.41 MG/DL (0.55-1.30); GLOMERULAR FILTRATION RATE 37.7 (>32); POTASSIUM SERUM 4.5 MEQ/L (3.5-5.1)
[2022-02-20] MEDS ORDERED: IRBESARTAN 150MG TAB PO SCH (21:00)
[2022-02-20] MEDS ORDERED: ATORVASTATIN 10 MG TAB PO SCH (21:00)
[2022-02-20] MEDS ORDERED: PRAMIPEXOLE 0.25 MG TAB PO SCH (21:00)
[2022-02-20 21:06] VITALS: BP 114/74
[2022-02-21] VITALS (10 sets, daily range): BP systolic 116–143; BP diastolic 66–92
[2022-02-21] MEDS: metroNIDAZOLE 500 MG in IV 1 EA IV SCH (04:40)
[2022-02-21] MEDS: D5W/0.9% SODIUM CHLORIDE 1,000 ML IV SCH (05:28)
[2022-02-21 07:36] LABS: HEMATOCRIT 23.4 % (36.0-47.0); HEMOGLOBIN 7.6 g/dl (12.0-15.5); MEAN CORPUSCULAR HEMOGLOBIN 32.3 pg (27.0-33.0); MEAN CORPUSCULAR HGB CONC 32.5 g/dl (32.0-36.5); MEAN CORPUSCULAR VOLUME 99.6 fl (80.0-96.0); RED BLOOD COUNT 2.35 10^6/uL (4.00-5.40); WHITE BLOOD COUNT 1.6 10^3/uL (4.0-10.0)
[2022-02-21 07:43] LABS: PLATELET COUNT, AUTOMATED 34 10^3/uL (150-450)
[2022-02-21 08:07] LABS: CALCIUM LEVEL 7.4 MG/DL (8.8-10.2); CREATININE FOR GFR 1.41 MG/DL (0.55-1.30); GLOMERULAR FILTRATION RATE 37.7 (>32); MAGNESIUM LEVEL 2.2 MG/DL (1.8-2.4); POTASSIUM SERUM 4.2 MEQ/L (3.5-5.1)
[2022-02-21 08:31] LABS: ATYPICAL LYMPH 8 % (0-5); EOSINOPHILS 1 % (0-3); LYMPHOCYTES 80 % (16-44); NEUTROPHILS 11 % (28-66); PLATELET ESTIMATE MARKED DECREASE (NORMAL)
[2022-02-21] MEDS ORDERED: CEFDINIR 300 MG CAP (OMNICEF) PO SCH (09:00)
[2022-02-21] MEDS: buPROPion **XL** TABLET 150MG (WELLBUTRIN XL) PO SCH (09:12)
[2022-02-21] MEDS: PROPRANOLOL 20 MG TAB PO SCH (11:10)
[2022-02-21] MEDS ORDERED: METR-265 PO (13:26)
[2022-02-21] MEDS ORDERED: CEFD300CAP PO (13:26)
[2022-02-21] MEDS ORDERED: metroNIDAZOLE (FLAGYL) 500MG TABLET PO SCH (16:00)
== END 2022-02-21 16:22 | disposition home or self-care (01) | DRG 392 ==
LOC: M ED 05:39 → M MS5PR 10:55 → ENRESERV 12:09 → M ED 13:36
PROVIDERS: ADMIT Internal Medicine; ATTEND Internal Medicine
DX: A09 Infectious gastroenteritis and colitis, unspecified (principal); C92.00 Acute myeloblastic leukemia, not having achieved remission; N17.9 Acute kidney failure, unspecified; E87.1 Hypo-osmolality and hyponatremia; I48.91 Unspecified atrial fibrillation; N18.30 Chronic kidney disease, stage 3 unspecified; Z85.3 Personal history of malignant neoplasm of breast; Z82.3 Family history of stroke; Z66 Do not resuscitate; F03.90 Unspecified dementia, unspecified severity, without behavioral disturbance, psychotic disturbance, mood disturbance, and anxiety; I12.9 Hypertensive chronic kidney disease with stage 1 through stage 4 chronic kidney disease, or unspecified chronic kidney disease; E78.5 Hyperlipidemia, unspecified; F39 Unspecified mood [affective] disorder; G25.81 Restless legs syndrome; Z20.822 Contact with and (suspected) exposure to COVID-19; Z79.899 Other long term (current) drug therapy; Z88.1 Allergy status to other antibiotic agents; Z88.8 Allergy status to other drugs, medicaments and biological substances

== ENCOUNTER 2022-03-13 11:28 | Outpatient (CLI) | payer MEDICARE ==
[~2022-03-13] VITALS: Ht 167.6 cm; Wt 77.6 kg
[~2022-03-13 11:28] MED LIST changes: +CEFD300CAP PO; +FLON1SPR NARES; +MELA5TAB47 PO; +ONDA-83 PO; +SENO8.6T5 PO; +ZYRTTAB8 PO
[2022-03-13 11:45] VITALS: BP 153/100
[2022-03-13 12:03] VITALS: BP 153/100
[2022-03-13] MEDS ORDERED: ACETAMINOPHEN TAB 650MG DOSE (2X325MG) PO ONE (12:15)
[2022-03-13] MEDS ORDERED: diphenhydrAMINE 25MG CAP PO ONE (12:15)
[2022-03-13 12:20] VITALS: BP 141/77
[2022-03-13 13:20] VITALS: BP 163/92
[2022-03-13 13:50] VITALS: BP 138/88
[2022-03-13 14:15] VITALS: BP 148/88
== END 2022-03-13 14:15 | disposition home or self-care (01) ==
LOC: M INFU 11:28
PROVIDERS: ATTEND Internal Medicine Medical Oncology
DX: C93.00 Acute monoblastic/monocytic leukemia, not having achieved remission (principal); Z88.0 Allergy status to penicillin; Z88.8 Allergy status to other drugs, medicaments and biological substances
CPT/HCPCS: 36430; P9016

== ENCOUNTER 2022-04-04 10:04 | Inpatient (IN) | payer MEDICARE ==
[~2022-04-04] VITALS: Ht 162.6 cm; Wt 77.0 kg
[2022-04-04] VITALS (10 sets, daily range): BP systolic 99–141; BP diastolic 55–88
[2022-04-04] MEDS ORDERED: ATIV1TAB10 PO (10:15)
[2022-04-04 10:49] LABS: BASO % 0.4 % (0.0-1.0); EOS # 0.1 10^3/uL (0.0-0.5); EOS % 1.8 % (0.0-3.0); LYMPH # 1.8 10^3/uL (1.5-5.0); MEAN CORPUSCULAR HEMOGLOBIN 31.5 pg (27.0-33.0); MEAN CORPUSCULAR HGB CONC 33.3 g/dl (32.0-36.5); MEAN CORPUSCULAR VOLUME 94.6 fl (80.0-96.0); MONO % 55.6 % (2.0-8.0); NEUTROPHILS % 3.8 % (36.0-66.0); RED BLOOD COUNT 2.22 10^6/uL (4.00-5.40); WHITE BLOOD COUNT 4.9 10^3/uL (4.0-10.0)
[2022-04-04 11:13] LABS: MONO # 2.7 10^3/uL (0.0-0.8); NEUTROPHILS # 0.2 10^3/uL (1.5-8.5); PLATELET COUNT, AUTOMATED 25 10^3/uL (150-450)
[2022-04-04 11:14] LABS: CALCIUM LEVEL 8.5 MG/DL (8.8-10.2); CK-MB VALUE MASS < 1.0 NG/ML (<3.6); CPK CREATINE PHOSPHOKINASE 38 U/L (26-192); CREATININE FOR GFR 1.68 MG/DL (0.55-1.30); GLOMERULAR FILTRATION RATE 30.8 (>32); MB/CK RELATIVE INDEX 2.63 (< OR =4); POTASSIUM SERUM 4.6 MEQ/L (3.5-5.1); THYROID STIMULATING HORMONE 4.99 uIU/ML (0.358-3.740)
[2022-04-04] MEDS ORDERED: ACETAMINOPHEN TAB 650MG DOSE (2X325MG) PO PRN (13:45)
[2022-04-04] MEDS ORDERED: MOM 30ML SUSPENSION UDC PO PRN (13:45)
[2022-04-04] MEDS ORDERED: MAALOX 30 ML SUSP *UDC PO PRN (13:45)
[2022-04-04 14:20] LABS: RSV AMPLIFICATION NEGATIVE (NEGATIVE)
[2022-04-04] MEDS ORDERED: CETI5TAB2 PO (16:08)
[2022-04-04] MEDS ORDERED: META28.32 PO (16:08)
[2022-04-04] MEDS ORDERED: CETI-24 PO (16:12)
[2022-04-04] MEDS ORDERED: HOME MED LIST COMPLETE! XX SCH (16:15)
[2022-04-04] MEDS: PRAMIPEXOLE 0.25 MG TAB PO SCH (20:26)
[2022-04-04] MEDS: ATORVASTATIN 10 MG TAB PO SCH (20:27)
[2022-04-04] MEDS: PROPRANOLOL 20 MG TAB PO SCH (20:29)
[2022-04-05] VITALS (8 sets, daily range): BP systolic 117–128; BP diastolic 65–87
[2022-04-05] MEDS ORDERED: RAMELTEON 8 MG TAB (ROZEREM) PO PRN (01:50)
[2022-04-05] MEDS: LEVOTHYROXINE 125MCG TABLET (0.125MG) PO SCH (05:40)
[2022-04-05 06:24] LABS: HEMATOCRIT 24.4 % (36.0-47.0); HEMOGLOBIN 8.5 g/dl (12.0-15.5); MEAN CORPUSCULAR HEMOGLOBIN 30.8 pg (27.0-33.0); MEAN CORPUSCULAR HGB CONC 34.8 g/dl (32.0-36.5); MEAN CORPUSCULAR VOLUME 88.4 fl (80.0-96.0); RED BLOOD COUNT 2.76 10^6/uL (4.00-5.40); WHITE BLOOD COUNT 4.6 10^3/uL (4.0-10.0)
[2022-04-05 06:56] LABS: ALBUMIN 3.2 GM/DL (3.2-5.2); CALCIUM LEVEL 8.7 MG/DL (8.8-10.2); CREATININE FOR GFR 1.43 MG/DL (0.55-1.30); GLOMERULAR FILTRATION RATE 37.1 (>32); POTASSIUM SERUM 4.3 MEQ/L (3.5-5.1)
[2022-04-05 06:57] LABS: BILIRUBIN,TOTAL 1.9 MG/DL (0.2-1.0)
[2022-04-05 07:03] LABS: PLATELET COUNT, AUTOMATED 19 10^3/uL (150-450)
[2022-04-05 08:01] LABS: BASOPHILS 1 % (0-1); EOSINOPHILS 1 % (0-3); LYMPHOCYTES 35 % (16-44); MONOCYTES 11 % (0-5); NEUTROPHILS 4 % (28-66)
[2022-04-05 08:08] LABS: ANISOCYTOSIS 2+; ATYPICAL LYMPH 13 % (0-5); BLAST CELLS 35 % (0-0); PLATELET ESTIMATE MARKED DECREASE (NORMAL)
[2022-04-05 08:33] LABS: BASOPHILS 1 % (0-1); EOSINOPHILS 2 % (0-3); LYMPHOCYTES 46 % (16-44); MONOCYTES 7 % (0-5); NEUTROPHILS 5 % (28-66)
[2022-04-05 08:34] LABS: ANISOCYTOSIS 3+; ATYPICAL LYMPH 7 % (0-5); BLAST CELLS 32 % (0-0); PLATELET ESTIMATE MARKED DECREASE (NORMAL)
[2022-04-05 08:35] LABS: OVALOCYTES 1+
[2022-04-05] MEDS: buPROPion **XL** TABLET 150MG (WELLBUTRIN XL) PO SCH (09:46)
[2022-04-05] MEDS: CETIRIZINE (ZyrTEC) 10 MG TAB PO SCH (09:46)
[2022-04-05] MEDS: PROPRANOLOL 20 MG TAB PO SCH ×2 (09:51→21:51)
[2022-04-05] MEDS: BALMEX CREAM 60GM EXT SCH ×2 (15:00→21:52)
[2022-04-05 15:46] LABS: HEMATOCRIT 28.1 % (36.0-47.0); HEMOGLOBIN 9.7 g/dl (12.0-15.5); MEAN CORPUSCULAR HEMOGLOBIN 30.8 pg (27.0-33.0); MEAN CORPUSCULAR HGB CONC 34.5 g/dl (32.0-36.5); MEAN CORPUSCULAR VOLUME 89.2 fl (80.0-96.0); RED BLOOD COUNT 3.15 10^6/uL (4.00-5.40); WHITE BLOOD COUNT 4.6 10^3/uL (4.0-10.0)
[2022-04-05 15:51] LABS: PLATELET COUNT, AUTOMATED 20 10^3/uL (150-450)
[2022-04-05 16:07] LABS: INR 1.12; PROTHROMBIN TIME 14.8 SECONDS (12.7-14.5)
[2022-04-05 16:13] LABS: BILIRUBIN,DIRECT 0.4 MG/DL (0.0-0.2)
[2022-04-05 16:41] LABS: ANISOCYTOSIS 2+; ATYPICAL LYMPH 10 % (0-5); BASOPHILS 1 % (0-1); BLAST CELLS 38 % (0-0); EOSINOPHILS 1 % (0-3); LYMPHOCYTES 43 % (16-44); MONOCYTES 2 % (0-5); NEUTROPHILS 5 % (28-66); PLATELET ESTIMATE MARKED DECREASE (NORMAL)
[2022-04-05] MEDS: ATORVASTATIN 10 MG TAB PO SCH (21:51)
[2022-04-05] MEDS: LORazepam 0.5 MG TAB PO SCH (21:51)
[2022-04-05] MEDS: PRAMIPEXOLE 0.25 MG TAB PO SCH (21:51)
[2022-04-06] VITALS (7 sets, daily range): BP systolic 130–150; BP diastolic 88–98
[2022-04-06] MEDS: LEVOTHYROXINE 125MCG TABLET (0.125MG) PO SCH (06:07)
[2022-04-06 06:51] LABS: HEMATOCRIT 27.4 % (36.0-47.0); HEMOGLOBIN 9.6 g/dl (12.0-15.5); MEAN CORPUSCULAR HEMOGLOBIN 30.9 pg (27.0-33.0); MEAN CORPUSCULAR VOLUME 88.1 fl (80.0-96.0); RED BLOOD COUNT 3.11 10^6/uL (4.00-5.40); WHITE BLOOD COUNT 5.2 10^3/uL (4.0-10.0)
[2022-04-06 06:56] LABS: PLATELET COUNT, AUTOMATED 18 10^3/uL (150-450)
[2022-04-06 07:23] LABS: ALBUMIN 3.2 GM/DL (3.2-5.2); BILIRUBIN,TOTAL 1.7 MG/DL (0.2-1.0); CALCIUM LEVEL 8.3 MG/DL (8.8-10.2); CREATININE FOR GFR 1.35 MG/DL (0.55-1.30); GLOMERULAR FILTRATION RATE 39.7 (>32); MAGNESIUM LEVEL 1.7 MG/DL (1.8-2.4); TOTAL PROTEIN 6.6 GM/DL (6.4-8.2)
[2022-04-06 07:39] LABS: ATYPICAL LYMPH 5 % (0-5); BASOPHILS 2 % (0-1); BLAST CELLS 31 % (0-0); EOSINOPHILS 1 % (0-3); LYMPHOCYTES 47 % (16-44); METAMYELOCYTES 2 % (0-0); MONOCYTES 3 % (0-5); MYELOCYTES 1 % (0-0); NEUTROPHILS 6 % (28-66); PROMYELOCYTES 1 % (0-0)
[2022-04-06 07:40] LABS: PLATELET ESTIMATE DECREASED (NORMAL)
[2022-04-06 07:41] LABS: MICROCYTOSIS 1+; OVALOCYTES 1+
[2022-04-06 07:42] LABS: TEAR DROP CELLS 1+
[2022-04-06] MEDS: BALMEX CREAM 60GM EXT SCH (09:28)
[2022-04-06] MEDS: buPROPion **XL** TABLET 150MG (WELLBUTRIN XL) PO SCH (09:28)
[2022-04-06] MEDS: LORazepam 0.5 MG TAB PO SCH (09:28)
[2022-04-06] MEDS: CETIRIZINE (ZyrTEC) 10 MG TAB PO SCH (09:28)
[2022-04-06] MEDS: PROPRANOLOL 20 MG TAB PO SCH (09:28)
[2022-04-06] MEDS: MAG SULF 1GM/100ML (MAG RUN) 1 GM in IV 1 EA IV SCH ×2 (09:29→10:33)
[2022-04-06] MEDS ORDERED: RAME8TAB2 PO (13:49)
== END 2022-04-06 14:24 | disposition home health service (06) | DRG 812 ==
LOC: M ED 10:04 → M ED INP 13:42 → ENRESERV 16:02 → M MSPAV 17:20
PROVIDERS: ADMIT Family Medicine; ATTEND Family Medicine
PROC: 30233N1 Transfusion of Nonautologous Red Blood Cells into Peripheral Vein, Percutaneous Approach (ICD-10-PCS; principal; 2022-04-04)
PROC: 30233R1 Transfusion of Nonautologous Platelets into Peripheral Vein, Percutaneous Approach (ICD-10-PCS; 2022-04-06)
DX: D64.9 Anemia, unspecified (principal); R17 Unspecified jaundice; D46.9 Myelodysplastic syndrome, unspecified; R55 Syncope and collapse; D69.6 Thrombocytopenia, unspecified; E03.9 Hypothyroidism, unspecified; I10 Essential (primary) hypertension; F03.90 Unspecified dementia, unspecified severity, without behavioral disturbance, psychotic disturbance, mood disturbance, and anxiety; G25.81 Restless legs syndrome; I48.91 Unspecified atrial fibrillation; F32.A Depression, unspecified; Z90.49 Acquired absence of other specified parts of digestive tract; Z88.0 Allergy status to penicillin; Z79.899 Other long term (current) drug therapy; Z87.891 Personal history of nicotine dependence

== ENCOUNTER → 2022-04-08 | Outpatient (REF) | payer MEDICARE ==
[~2022-04-08] MED LIST changes: +ATIV1TAB10 PO; +CETI-24 PO; +CETI5TAB2 PO; +META28.32 PO; +RAME8TAB2 PO
== END ==
LOC: M LAB REF 12:08
PROVIDERS: ATTEND Internal Medicine
DX: L03.115 Cellulitis of right lower limb (principal)

== ENCOUNTER → 2022-04-16 | Outpatient (REF) | payer MEDICARE ==
[2022-04-16 13:38] LABS: HEMATOCRIT 24.5 % (36.0-47.0); MEAN CORPUSCULAR HEMOGLOBIN 29.9 pg (27.0-33.0); MEAN CORPUSCULAR HGB CONC 32.7 g/dl (32.0-36.5); MEAN CORPUSCULAR VOLUME 91.4 fl (80.0-96.0); RED BLOOD COUNT 2.68 10^6/uL (4.00-5.40); WHITE BLOOD COUNT 21.4 10^3/uL (4.0-10.0)
[2022-04-16 13:48] LABS: PLATELET COUNT, AUTOMATED 23 10^3/uL (150-450)
[2022-04-16 14:51] LABS: ATYPICAL LYMPH 5 % (0-5); BLAST CELLS 62 % (0-0); LYMPHOCYTES 18 % (16-44); MONOCYTES 8 % (0-5); MYELOCYTES 2 % (0-0); NEUTROPHILS 5 % (28-66); PLATELET ESTIMATE DECREASED (NORMAL)
[2022-04-16 14:53] LABS: ANISOCYTOSIS 1+
== END ==
LOC: M SHH 13:04
PROVIDERS: ATTEND Internal Medicine
DX: D61.818 Other pancytopenia (principal)